=== PATIENT | female | born 1950 | race Caucasian/White ===

== ENCOUNTER 2020-04-26 16:15 | Outpatient (REF) | payer MEDICARE, OTHER, SELFPAY ==
--- NOTE | ~2020-04-26 | MM_ITS ---
EXAMINATION: MM SCREENING DIGITAL BREAST TOMOSYNTHESIS, BILATERAL CLINICAL INFORMATION: Screening. Asymptomatic. The lifetime risk of breast cancer based on the Tyrer-Cuzick Model is 5%. COMPARISON: Mammography: 04/21/2019, 02/24/2018, 08/08/2015 TECHNIQUE: Digital breast tomosynthesis is performed in both the craniocaudal and mediolateral oblique views along with computer-aided detection (CAD). Synthesized 2D images are generated from the tomosynthesis. Additional right MLO and left CC views are provided. FINDINGS: There are scattered areas of fibroglandular density (ACR BI-RADS breast composition Category b). The fibroglandular tissue is predominantly in the anterior breasts and appear similar to prior studies. There is no developing density or interval mass or architectural abnormality. No abnormal calcifications. The axilla and skin contours are unremarkable. MM/MM tomosynthesis screening BI IMPRESSION: No significant changes from prior studies. ASSESSMENT: BI-RADS 1: Negative RECOMMENDATION: Routine annual mammography screening. This patient's information was entered into a reminder system with a target due date for their next mammogram.
== END 2020-04-26 16:16 | disposition home or self-care (01) ==
LOC: HO.MAMMO 16:15
PROVIDERS: PCP Internal Medicine; Visit Provider Internal Medicine
DX: Z12.31 Encounter for screening mammogram for malignant neoplasm of breast (principal)
CPT/HCPCS: 77063; 77067

== ENCOUNTER 2020-08-23 13:48 | Outpatient (REF) | payer MEDICARE, OTHER, SELFPAY ==
--- NOTE | ~2020-08-23 | MM_ITS ---
EXAMINATION: BONE DENSITOMETRY CLINICAL INDICATION: Menopause. COMPARISON: This is the patient's baseline examination. TECHNIQUE: Using a Moment DXA System (software version: 13.1) manufactured by [employer], dual-energy x-ray absorptiometry was performed of the lumbar spine and left forearm radius 33%. Patient with bilateral hip replacements. The images are of good technical quality. Summary results are attached. FINDINGS: AP SPINE L1-L4: BMD 1.088 g/cm2, Z-score -0.3, T-score -0.8, normal. LEFT FOREARM RADIUS 33%: BMD 0.595 g/cm2, Z-score -1.5, T-score -3.2, osteoporosis. IDENTIFIED RISK FACTORS: Early menopause, height loss, osteoporosis, history of fracture (adult), secondary osteoporosis. HISTORY OF FRACTURE: Femur. MEDICATIONS: Calcium, vitamin D. MM/XR DEXA axial skeleton IMPRESSION: 1. DIAGNOSIS: Severe osteoporosis based on the lowest T-score value of -3.2 in the forearm radius 33% and history of a fracture of femur applying World Health Organization criteria. 2. 10-YEAR FRACTURE RISK PREDICTION, FRAX: According to the guidelines, FRAX calculation should only be performed on patients in the osteopenia bone density category. Therefore, FRAX was not performed on this patient. 3. Treatment Recommendations: NOF guidelines recommend consideration for treatment in postmenopausal women and men age 50 and older presenting with the following: -A hip or vertebral (clinical or morphometric) fracture. -T-score less than or equal to -2.5 at the femoral neck or spine after appropriate evaluation to exclude secondary causes. -Low bone mass at the hip or spine and a 10-year fracture probability by FRAX of greater than or equal to 3% for hip fracture or greater than or equal to 20% for major osteoporotic fracture based on the [place] adapted WHO algorithm. 4. Other Recommendations: All treatment decisions require clinical judgment and consideration of individual patient factors, including patient preferences, comorbidities, previous drug use, risk factors not captured in the FRAX model (e.g. frailty, falls, vitamin D deficiency, increased bone turnover, interval significant decline in bone density) and possible under or overestimation of fracture risk by FRAX. Additional medical evaluation for secondary cause of low bone mineral density may be appropriate. FUTURE SCAN RECOMMENDATION: People with diagnosed cases of osteoporosis or at high risk for fracture should have regular bone mineral density tests. For patients eligible for Medicare, routine testing is allowed once every 2 years. The testing frequency can be increased to one year for patients who have rapidly progressing disease, those who are receiving or discontinuing medical therapy to restore bone mass, or have additional risk factors.
== END 2020-08-23 13:49 | disposition home or self-care (01) ==
LOC: HO.MAMMO 13:48
PROVIDERS: PCP Internal Medicine; Visit Provider Internal Medicine
DX: Z78.0 Asymptomatic menopausal state (principal); R29.890 Loss of height
CPT/HCPCS: 77080

== ENCOUNTER 2020-09-16 13:25 | Outpatient (REF) | payer MEDICARE, OTHER, SELFPAY ==
[2020-09-16 14:49] LABS: Alanine Aminotransferase 45 U/L (0-31); Albumin Level 4.1 g/dL (3.5-5.0); Alkaline Phosphatase 78 U/L (39-117); Anion Gap 15 (12-20); Aspartate Amino Transferase 31 U/L (5-31); Bilirubin Total 0.7 mg/dL (0.0-1.0); Blood Urea Nitrogen 18 mg/dL (9-16); Calcium 9.6 mg/dL (8.4-10.2); Carbon Dioxide 30 mmol/L (22-29); Chloride 98 mmol/L (96-108); Cholesterol 148 mg/dL; Estimated Glomerular Filt Rate > 60; Glucose Fasting 102 mg/dL (60-99); HDL Cholesterol 58 mg/dL; LDL Cholesterol Calculated 74 mg/dl; Potassium 4.7 mmol/L (3.3-5.1); Sodium 138 mmol/L (135-145); Total Protein 6.7 g/dL (6.5-8.0); Triglycerides 81 mg/dL
[2020-09-16 15:13] LABS: TSH reflex Free T4 3.73 uIU/mL (0.32-4.0)
== END 2020-09-16 13:26 | disposition home or self-care (01) ==
LOC: HO.LAB 13:25
PROVIDERS: PCP Internal Medicine; Visit Provider Nurse Practitioner Family
DX: Z13.1 Encounter for screening for diabetes mellitus (principal); Z13.220 Encounter for screening for lipoid disorders; I10 Essential (primary) hypertension
CPT/HCPCS: 36415; 80053; 80061; 84443

== ENCOUNTER 2020-10-02 13:26 | Outpatient (REF) | payer MEDICARE, OTHER, SELFPAY ==
[2020-10-02 14:54] LABS: Hematocrit 37.5 % (37-47); Hemoglobin 12.1 g/dl (12.0-16.0); Mean Corpuscular HGB Conc 32.3 g/dl (31.0-35.0); Mean Corpuscular Hemoglobin 32.8 pg (27.0-33.0); Mean Corpuscular Volume 101.6 fL (80-98); Platelet Count 258 X10*3/uL (160-400); Red Blood Count 3.69 X10*6/uL (4.20-5.50); Red Cell Distribution Width 13.5 % (11.0-16.0); White Blood Count 5.3 X10*3/uL (4.8-10.8)
== END 2020-10-02 13:27 | disposition home or self-care (01) ==
LOC: HO.LAB 13:26
PROVIDERS: PCP Internal Medicine; Referring Provider Internal Medicine; Visit Provider Nurse Practitioner Family
DX: Z01.818 Encounter for other preprocedural examination (principal); R06.02 Shortness of breath
CPT/HCPCS: 36415; 85027; 99202

== ENCOUNTER → 2020-11-06 12:38 | Outpatient (BNVA) | payer MEDICARE, OTHER, SELFPAY | PROVIDERS: PCP Internal Medicine; Visit Provider Internal Medicine | DX: Z01.810 Encounter for preprocedural cardiovascular examination (principal); I51.7 Cardiomegaly; I10 Essential (primary) hypertension; R60.0 Localized edema; E66.01 Morbid (severe) obesity due to excess calories | CPT/HCPCS: 93005; 99202 ==

== ENCOUNTER → 2021-01-13 14:45 | Outpatient (REF) | payer MEDICARE, OTHER, SELFPAY ==
--- NOTE | 2021-01-13 14:49 | CA_ITS ---
Transthoracic Echocardiogram Patient (Last, First, Middle): Amber Dozier A Gender: Female Date of : 1950 Age: 70 Procedure Date: 01/13/2021 Procedure Type: Transthoracic Echocardiogram Location: OP Height: 160.02 cm Weight: 122.47 kg BSA: 2.20 m2 Heart Rate: bpm BP: 128 / 80 mmHg Production Maintenance Technician: Referring MD: Harshad Goode MD Symptoms: R60.0 - Localized edema Study Quality: Fair ECG Rhythm: Sinus Conclusions: - The left ventricular systolic function is normal. The calculated ejection fraction is 60% by biplane method. - No obvious valvular pathology seen on this study. Findings Left Ventricle Normal left ventricular cavity size. There is mildly increased left ventricular wall thickness. The left ventricular systolic function is normal. The calculated ejection fraction is 60% by biplane method. There is no evidence of regional wall motion abnormalities. Diastolic function is normal for age. Right Ventricle Normal right ventricular cavity size and systolic function. Atria Both atria are normal in size. Aortic Valve The aortic valve was not well visualized. There is no aortic valve stenosis. There is no aortic valve regurgitation. Mitral Valve The mitral valve appears normal. There is trace mitral valve regurgitation. There is no mitral valve stenosis. Pulmonic Valve The pulmonic valve was not well visualized. Tricuspid Valve Normal tricuspid valve structure. There is trace tricuspid valve regurgitation. The pulmonary artery systolic pressure is normal. Great Vessels The asc aorta is normal in size. Venous The inferior vena cava was not well visualized. Pericardium/Pleural There is no evidence of pericardial effusion. Prior Study Comparison No prior study available for comparison. Recommendations, Care & Conclusions No obvious valvular pathology seen on this study. Measurements 2D Linear Measurements IVSd: 1.16 0.6-0.9/0.6-1.0 cm LVIDd: 4.57 3.9-5.3/4.2-5.9 cm LVIDd Index: 2.08 2.4-3.2/2.2-3.1 cm/m2 LVIDs: 3.15 2.0-3.6 cm LVPWd: 1.19 0.7-1.1 cm Ao Root: 2.90 2.1-3.5 cm LA Diam: 4.60 2.7-3.8/3.0-4.0 cm LAIDs Index: 2.09 1.5-2.3 cm/m2 LV Mass: 245.37 67-162/88-224 g LV Mass Index: 111.53 43-95/49-115 g/m2 LVOT Diam: 2.20 3.0+(-)1.3 cm 2D Systolic Function EF 4C: 56.80 >55% EF 2C: 61.80 >55% EF BiP: 60.30 >55% Mitral Valve MV Pk E: 0.90 MV PK A: 1.08 MV Decel Time: 165.00 E/A: 0.80 E'Lateral: 11.00 E'Medial: 8.16 E/E' Med: 11.10 E/E' Lat: 8.20 PHT: 48.00 MVA PHT: 4.58 Decel Benson: 5.47 Aortic Valve AoV Pk Kenan: 1.89 AoV Mn Kenan: 1.25 AoV VTI: 0.44 AoV Pk Grad: 14.00 Aov Mn Grad: 8.00 DANNY Cont.VTI: 2.47 LVOT LVOT Pk Kenan: 1.19 LVOT Mn Kenan: 0.87 LVOT VTI: 0.28 LVOT Pk Grad: 6.00 LVOT Mn Grad: 3.00 LVOT Diam: 2.20 LVOT Area: 3.80 Diastolic Function MV Pk E: 0.90 MV Pk A: 1.08 E/A: 0.80 E'Medial: 8.16 E/E' Med: 11.10 E' Laterial: 11.00 E/E' Lat: 8.20 Right Ventricle TAPSE (mm): 24.00 Tricuspid Valve TR Pk Kenan: 2.41 TR Pk Grad: 23.00 Great Vessels Aorta Ao Root-2D: 2.90 2.0-3.7 cm Ao Asc: 3.70 2.1-3.4 cm Pulmonary Valve PV Pk Kenan: 1.11 Peak PV Grad: 5.00 Updated in Other Vendor System with Status of Final Harshad Goode MD electronically signed on 01/15/2021 11:14:27 AM with status of Final
== END ==
LOC: HO.CARD 14:45
PROVIDERS: Visit Provider Internal Medicine
DX: R60.0 Localized edema (principal)
CPT/HCPCS: 93306

== ENCOUNTER 2021-07-30 11:15 | Outpatient (REF) | payer MEDICARE, OTHER, SELFPAY ==
[2021-07-30 12:37] LABS: Anion Gap 13 (12-20); Blood Urea Nitrogen 17 mg/dL (9-16); Calcium 9.1 mg/dL (8.4-10.2); Carbon Dioxide 31 mmol/L (22-29); Chloride 99 mmol/L (96-108); Estimated Glomerular Filt Rate > 60; Glucose Fasting 123 mg/dL (60-99); Potassium 4.1 mmol/L (3.3-5.1); Sodium 139 mmol/L (135-145)
== END 2021-07-30 11:16 | disposition home or self-care (01) ==
LOC: HO.LAB 11:15
PROVIDERS: PCP Internal Medicine; Visit Provider Nurse Practitioner Family
DX: Z13.1 Encounter for screening for diabetes mellitus (principal)
CPT/HCPCS: 36415; 80048

== ENCOUNTER 2021-08-06 15:15 | Outpatient (REF) | payer MEDICARE, OTHER, SELFPAY ==
[2021-08-06 16:22] LABS: Estimated Average Glucose 111 mg/dL; Hemoglobin A1c % 5.5 %
[2021-08-06 16:24] LABS: Cholesterol 155 mg/dL; HDL Cholesterol 56 mg/dL; LDL Cholesterol Calculated 81 mg/dl; Triglycerides 90 mg/dL
== END 2021-08-06 15:16 | disposition home or self-care (01) ==
LOC: HO.LAB 15:15
PROVIDERS: PCP Internal Medicine; Visit Provider Nurse Practitioner Family
DX: E11.65 Type 2 diabetes mellitus with hyperglycemia (principal)
CPT/HCPCS: 36415; 80061; 83036

== ENCOUNTER → 2021-08-28 10:06 | Outpatient (BNVA) | payer MEDICARE, OTHER, SELFPAY | PROVIDERS: PCP Internal Medicine; Visit Provider Internal Medicine Endocrinology, Diabetes & Metabolism | DX: M81.0 Age-related osteoporosis without current pathological fracture (principal) | CPT/HCPCS: 99212; Q3014 ==

== ENCOUNTER 2021-10-07 11:59 | Outpatient (REF) | payer MEDICARE, OTHER, SELFPAY ==
[2021-10-07 13:23] LABS: Phosphorus 4.2 mg/dL (2.7-4.5)
[2021-10-07 13:48] LABS: Vitamin D 25-OH Total 35.7 ng/mL (>30)
[2021-10-11 19:26] LABS: Prot Elec - Albumin 3.7 g/dL (3.8-4.8); Prot Elec - Alpha1 0.3 g/dL (0.2-0.3); Prot Elec - Alpha2 0.8 g/dL (0.5-0.9); Prot Elec - Beta 1 0.5 g/dL (0.4-0.6); Prot Elec - Beta 2 0.5 g/dL (0.2-0.5); Prot Elec - Gamma 0.9 g/dL (0.8-1.7); Prot Elec - Total Protein 6.6 g/dL (6.1-8.1)
== END 2021-10-07 12:00 | disposition home or self-care (01) ==
LOC: HO.LAB 11:59
PROVIDERS: PCP Internal Medicine; Visit Provider Internal Medicine Endocrinology, Diabetes & Metabolism
DX: M81.0 Age-related osteoporosis without current pathological fracture (principal)
CPT/HCPCS: 36415; 82306; 84100; 84165; 86335

== ENCOUNTER 2021-12-25 12:41 | Outpatient (REF) | payer MEDICARE, OTHER, SELFPAY ==
[2021-12-25 13:37] LABS: Creatinine, mg/dL 33.83
[2021-12-25 14:47] LABS: Creatinine, 24Hr Urine 0.9 G/Day (1.0-2.0); Total Volume 24 Hour Urine 2750 mL
[2021-12-27 17:46] LABS: Calcium, 24 Hr Urine 220 mg/24 h; Calcium/Creatinine Ratio 229 mg/g creat (30-275); Creatinine 24Hr Urine 0.96 g/24 h (0.50-2.15)
== END 2021-12-25 12:42 | disposition home or self-care (01) ==
LOC: HO.LNP 12:41
PROVIDERS: Visit Provider Internal Medicine Endocrinology, Diabetes & Metabolism
DX: M81.0 Age-related osteoporosis without current pathological fracture (principal)
CPT/HCPCS: 82340; 82570

== ENCOUNTER → 2022-01-20 14:48 | Outpatient (BNVA) | payer MEDICARE, OTHER, SELFPAY | PROVIDERS: PCP Internal Medicine; Visit Provider Internal Medicine Endocrinology, Diabetes & Metabolism | DX: M81.0 Age-related osteoporosis without current pathological fracture (principal) | CPT/HCPCS: 99212 ==

== ENCOUNTER 2022-01-22 08:50 | Outpatient (REF) | payer MEDICARE, OTHER, SELFPAY ==
--- NOTE | ~2022-01-22 | XR_ITS ---
EXAMINATION: XR CHEST CLINICAL INFORMATION: Unspecified abdominal pain. COMPARISON: Chest CT scan dated 11/18/2010, abdominal radiograph dated 09/17/2008. TECHNIQUE: 2 views of the chest were obtained. FINDINGS: No significant abnormality is noted involving the heart, lungs, mediastinum, bony thorax or soft tissues. XR/XR chest 2V IMPRESSION: No acute cardiopulmonary process.
--- NOTE | ~2022-01-22 | US_ITS ---
EXAMINATION: US ABDOMEN COMPLETE CLINICAL INFORMATION: Unspecified abdominal pain. COMPARISON: Ultrasound abdomen 10/18/2008. TECHNIQUE: Real-time imaging of the abdominal viscera. Technically difficult study secondary to body habitus. FINDINGS: Body habitus limits the evaluation. PANCREAS: Normal. ABDOMINAL AORTA: Not seen due to bowel gas. INFERIOR VENA CAVA: Visualized portions are normal. LIVER: The liver is normal in size. The liver contour is normal. There is diffuse increased liver parenchymal echogenicity, consistent with hepatic steatosis. No focal hepatic lesion. There is no intrahepatic biliary duct dilatation seen. GALLBLADDER: The gallbladder is physiologically distended. A few dependent gallstones are present. No evidence of gallbladder wall thickening or pericholecystic fluid. COMMON BILE DUCT: Normal in caliber measuring 0.5 cm in diameter. RIGHT KIDNEY: Normal. No hydronephrosis. No renal calculi or focal parenchymal lesions. The kidney measures 11.6 cm in maximum dimension. LEFT KIDNEY: Atrophic kidney. No hydronephrosis. No renal calculi or focal parenchymal lesions. The kidney measures 7.2 cm in maximum dimension. SPLEEN: Normal. The spleen measures 10.3 cm in maximum dimension. FREE FLUID: None. US/US abdomen complete IMPRESSION: 1. Hepatic steatosis. 2. Cholelithiasis without evidence of acute cholecystitis. 3. Atrophic left kidney.
[2022-01-22 11:21] LABS: MANUAL DIFF FLAG NO
[2022-01-22 11:47] LABS: Basophils Percent Auto 0.9 % (0-2); Eosinophils Absolute Auto 0.1 X10*3/uL (0.0-0.4); Hematocrit 42.2 % (37.0-47.0); Hemoglobin 13.2 g/dl (12.0-16.0); Imm Gran Abs Auto 0.01 X10*3/uL (0.00-0.03); Imm Gran Pct Auto 0.2 % (0.0-0.4); Lymphocytes Percent Auto 21.5 % (20-40); Mean Corpuscular HGB Conc 31.3 g/dl (31.0-35.0); Mean Corpuscular Hemoglobin 32.2 pg (27.0-33.0); Mean Corpuscular Volume 102.9 fL (80.0-98.0); Mean Platelet Volume 10.9 fL (9.4-12.3); Monocytes Absolute Auto 0.5 X10*3/uL (0.1-1.2); Monocytes Percent Auto 10.7 % (2-11); Neutrophils Percent Auto 63.7 % (45-73); Platelet Count 265 X10*3/uL (160-400); Red Cell Distribution Width 13.8 % (11.0-16.0); White Blood Count 4.7 X10*3/uL (4.8-10.8)
[2022-01-22 12:15] LABS: Alanine Aminotransferase 52 U/L (0-31); Albumin Level 4.3 g/dL (3.5-5.0); Alkaline Phosphatase 91 U/L (39-117); Anion Gap 13 (12-20); Aspartate Amino Transferase 40 U/L (5-31); Bilirubin Total 0.7 mg/dL (0.0-1.0); Blood Urea Nitrogen 18 mg/dL (9-16); Calcium 9.5 mg/dL (8.4-10.2); Carbon Dioxide 36 mmol/L (22-29); Chloride 97 mmol/L (96-108); Cholesterol 176 mg/dL; Estimated Glomerular Filt Rate > 60; Glucose Fasting 124 mg/dL (60-99); HDL Cholesterol 77 mg/dL; LDL Cholesterol Calculated 80 mg/dl; Potassium 4.1 mmol/L (3.3-5.1); Sodium 142 mmol/L (135-145); Thyroid Stimulating Hormone 9.69 uIU/mL (0.32-4.0); Total Protein 7.1 g/dL (6.5-8.0); Triglycerides 97 mg/dL
== END 2022-01-22 08:51 | disposition home or self-care (01) ==
LOC: HO.HMGCX 08:50
PROVIDERS: PCP Internal Medicine; Visit Provider Internal Medicine
DX: Z13.0 Encounter for screening for diseases of the blood and blood-forming organs and certain disorders involving the immune mechanism (principal); R10.9 Unspecified abdominal pain; I10 Essential (primary) hypertension; E78.5 Hyperlipidemia, unspecified; E03.9 Hypothyroidism, unspecified
CPT/HCPCS: 36415; 71046; 76700; 80053; 80061; 84443; 85025

== ENCOUNTER → 2022-03-10 11:04 | Outpatient (BNVA) | payer MEDICARE, OTHER, SELFPAY | PROVIDERS: PCP Internal Medicine; Visit Provider Internal Medicine Endocrinology, Diabetes & Metabolism | DX: M81.0 Age-related osteoporosis without current pathological fracture (principal) | CPT/HCPCS: 96372; J3111 ==

== ENCOUNTER → 2022-04-16 10:55 | Outpatient (BNVA) | payer MEDICARE, OTHER, SELFPAY | PROVIDERS: PCP Internal Medicine; Visit Provider Internal Medicine Endocrinology, Diabetes & Metabolism | DX: M81.0 Age-related osteoporosis without current pathological fracture (principal) | CPT/HCPCS: 96372; J3111 ==

== ENCOUNTER → 2022-05-19 10:53 | Outpatient (BNVA) | payer MEDICARE, OTHER, SELFPAY | PROVIDERS: PCP Internal Medicine; Visit Provider Internal Medicine Endocrinology, Diabetes & Metabolism | DX: M81.0 Age-related osteoporosis without current pathological fracture (principal) | CPT/HCPCS: 96372; J3111 ==

== ENCOUNTER 2022-06-05 11:00 | Outpatient (REF) | payer MEDICARE, OTHER, SELFPAY ==
[2022-06-05 12:56] LABS: Cholesterol 175 mg/dL; HDL Cholesterol 73 mg/dL; LDL Cholesterol Calculated 82 mg/dl; Triglycerides 104 mg/dL
[2022-06-05 13:15] LABS: Thyroid Stimulating Hormone 3.31 uIU/mL (0.32-4.0)
== END 2022-06-05 11:01 | disposition home or self-care (01) ==
LOC: HO.LAB 11:00
PROVIDERS: Absent Provider Internal Medicine Endocrinology, Diabetes & Metabolism; PCP Internal Medicine; Visit Provider Internal Medicine
DX: E03.9 Hypothyroidism, unspecified (principal); E78.5 Hyperlipidemia, unspecified; M81.0 Age-related osteoporosis without current pathological fracture
CPT/HCPCS: 36415; 80061; 84443; 86335

== ENCOUNTER → 2022-06-11 10:30 | Outpatient (BNVA) | payer MEDICARE, OTHER, SELFPAY | PROVIDERS: PCP Internal Medicine; Visit Provider Internal Medicine Endocrinology, Diabetes & Metabolism | DX: M81.0 Age-related osteoporosis without current pathological fracture (principal) | CPT/HCPCS: 99212 ==

== ENCOUNTER 2022-06-30 11:41 | Outpatient (REF) | payer MEDICARE, OTHER, SELFPAY ==
--- NOTE | ~2022-06-30 | XR_ITS ---
EXAMINATION: XR KNEE, RIGHT CLINICAL INFORMATION: Right knee pain COMPARISON: None available. TECHNIQUE: Two views of the right knee. FINDINGS: No fracture or subluxation. Moderate medial compartment joint space narrowing with mild narrowing at the lateral patellofemoral compartments. Tricompartmental small to moderate marginal osteophytes. No joint effusion. Enthesophyte formation of the patella. Superficial varicosities noted. XR/XR knee RT 2V IMPRESSION: Moderate tricompartmental degenerative changes.
== END 2022-06-30 11:42 | disposition home or self-care (01) ==
LOC: HO.XRAY 11:41
PROVIDERS: Absent Provider Internal Medicine; PCP Internal Medicine; Visit Provider Internal Medicine Endocrinology, Diabetes & Metabolism
DX: M25.551 Pain in right hip (principal); M81.0 Age-related osteoporosis without current pathological fracture
CPT/HCPCS: 73560; 96372; J3111

== ENCOUNTER 2022-07-19 09:28 | Emergency (ER) | payer MEDICARE, OTHER, SELFPAY ==
--- NOTE | ~2022-07-19 | XR_ITS ---
EXAMINATION: XR PELVIS XR RIGHT FEMUR XR RIGHT TIBIA-FIBULA XR RIGHT ANKLE XR RIGHT FOOT CLINICAL INFORMATION: Right hip pain after fall. Pain of right-sided extremity after fall. COMPARISON: Pelvis radiograph and CT images of the left hip from 10/22/2016 TECHNIQUE: Pelvis, AP view Right femur, 2 views Right tibia-fibula, 2 views Right ankle, 2 views Right foot, 3 views FINDINGS: Pelvis: The osseous pelvic ring is intact with normal alignment at pubic symphysis, hips and sacroiliac joints. Bilateral total hip arthroplasty hardware in place. No osteolysis or fracture around the hardware. Right femur: The prosthetic femoral head is well centered within the acetabular cup which is stabilized by superior screws. The noncemented femoral stem is well centered in the medullary cavity of the proximal femoral diaphysis. No abnormal lucency or fracture around the hardware. 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 There is narrowing of tibiofemoral joint spaces. Proximal tibia and fibula are intact. Incidentally noted are scattered calcifications in the subcutaneous tissues. Right ankle: Acute fracture of the medial malleolus is not significantly displaced. Oblique fracture of distal fibular metaphysis (Forbes B injury) with 0.3 cm posterolateral displacement of distal fragment. The talus is well-positioned within the mortise. The tibiotalar joint space and syndesmotic space are maintained. Soft tissues are swollen in the lower leg and ankle. Right foot: Small plantar calcaneal enthesophyte is present. Alignment is normal throughout the foot. Joint spaces are preserved. Tarsal bones, metatarsals and phalanges are intact. XR/XR tibia fibula RT 2V IMPRESSION: * Acute osseous injury is present at the ankle. The medial malleolar fracture is not significantly displaced. The distal fibula fracture (Forbes B injury) is displaced by 0.3 cm. Soft tissues are swollen in the lower leg and ankle. * Otherwise, no acute fractures are identified within the pelvis, femur, leg or foot.. * No evidence of loosening of total hip arthroplasty hardware.
--- NOTE | ~2022-07-19 | XR_ITS ---
EXAMINATION: XR PELVIS XR RIGHT FEMUR XR RIGHT TIBIA-FIBULA XR RIGHT ANKLE XR RIGHT FOOT CLINICAL INFORMATION: Right hip pain after fall. Pain of right-sided extremity after fall. COMPARISON: Pelvis radiograph and CT images of the left hip from 10/22/2016 TECHNIQUE: Pelvis, AP view Right femur, 2 views Right tibia-fibula, 2 views Right ankle, 2 views Right foot, 3 views FINDINGS: Pelvis: The osseous pelvic ring is intact with normal alignment at pubic symphysis, hips and sacroiliac joints. Bilateral total hip arthroplasty hardware in place. No osteolysis or fracture around the hardware. Right femur: The prosthetic femoral head is well centered within the acetabular cup which is stabilized by superior screws. The noncemented femoral stem is well centered in the medullary cavity of the proximal femoral diaphysis. No abnormal lucency or fracture around the hardware. 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 There is narrowing of tibiofemoral joint spaces. Proximal tibia and fibula are intact. Incidentally noted are scattered calcifications in the subcutaneous tissues. Right ankle: Acute fracture of the medial malleolus is not significantly displaced. Oblique fracture of distal fibular metaphysis (Forbes B injury) with 0.3 cm posterolateral displacement of distal fragment. The talus is well-positioned within the mortise. The tibiotalar joint space and syndesmotic space are maintained. Soft tissues are swollen in the lower leg and ankle. Right foot: Small plantar calcaneal enthesophyte is present. Alignment is normal throughout the foot. Joint spaces are preserved. Tarsal bones, metatarsals and phalanges are intact. XR/XR ankle RT min 3V IMPRESSION: * Acute osseous injury is present at the ankle. The medial malleolar fracture is not significantly displaced. The distal fibula fracture (Forbes B injury) is displaced by 0.3 cm. Soft tissues are swollen in the lower leg and ankle. * Otherwise, no acute fractures are identified within the pelvis, femur, leg or foot.. * No evidence of loosening of total hip arthroplasty hardware.
[2022-07-19 09:29] VITALS: BP 148/90; BP 161/74; PULSE 84; RESP 16; TEMP 36.9; O2SAT 92; O2SAT 93; BMI 51.1
--- NOTE | 2022-07-19 09:36 | ED_ITS ---
HPI - General Adult General Chief complaint: Fall Stated complaint: RLE PAIN S/P FALL LAST NIGHT/UNABLE TO GET UP PER Time Seen by Provider: 07/19/22 09:31 Source: patient and RN notes reviewed Mode of arrival: ambulatory Limitations: no limitations History of Present Illness HPI narrative: This is a [id number], with a past medical history of hypertension, left hip replacement, right hip replacement, CKD, osteoporosis, and LVH, who presents to the emergency department via EMS with complaints of entire right leg pain status post mechanical fall which occurred yesterday. Patient reports that she was attempting to stand up from her chair when suddenly her knees ?gave out and she fell backwards landing on her buttocks. Patient states that she was unable to get herself back up and ultimately spent the entire night on the ground. She states that her family was present during this fall and decided not to call EMS until this morning. She reports that she has been unable to move her entire right leg. Denies any numbness or tingling in her leg. She denies taking any medications at home to treat her pain. No chest pain, shortness of breath, headaches, abdominal pain, back pain, nausea, vomiting or diarrhea. No other complaints or concerns at this time. MD complaint: Right leg pain s/p mechanical fall Onset (ago): day(s) Location: lower extremity Severity: moderate Quality: aching Pain Consistency: constant Relieving factors: immobilization Exacerbating factors: movement Associated symptoms: denies other symptoms Treatments prior to arrival: none Related Data Home Medications Medication Instructions Recorded Confirmed potassium citrate 10 mEq (1,080 20 meq PO BID 01/31/20 07/19/22 mg) tablet,extended release Saccharomyces boulardii 250 mg 250 mg PO BID 11/06/20 07/19/22 capsule (Daily Probiotic (S. boulardii)) cholecalciferol (vitamin D3) 25 25 mcg PO DAILY 11/06/20 07/19/22 mcg (1,000 unit) capsule cranberry 400 mg capsule 400 mg PO DAILY 11/06/20 07/19/22 ferrous sulfate 325 mg (65 mg 325 mg PO DAILY 11/06/20 07/19/22 iron) tablet simethicone 62.5 mg oral strips 1 strip PO BEDTIME 11/06/20 07/19/22 (Gas-X) fexofenadine 180 mg tablet 180 mg PO DAILY 07/19/22 07/19/22 levothyroxine 125 mcg tablet 125 mcg PO DAILY@0600 07/19/22 07/19/22 multivitamin 1 tab PO DAILY 07/19/22 07/19/22 pantoprazole 40 mg tablet,delayed 40 mg PO DAILY@0630 07/19/22 07/19/22 release romosozumab-aqqg 210 mg/2.34 210 mg subcut QMONTH 07/19/22 07/19/22 mL(105 mg/1.17 mL x2)subcutaneous syringe (Evenity) simvastatin 80 mg tablet 80 mg PO BEDTIME 07/19/22 07/19/22 Previous Rx's Medication Instructions Recorded furosemide 80 mg tablet 80 mg PO DAILY #90 tabs 04/17/21 irbesartan 150 mg tablet 150 mg PO DAILY #90 tabs 05/04/22 oxybutynin chloride 5 mg 5 mg PO DAILY #90 tabs 05/04/22 tablet,extended release 24 hr zolpidem 5 mg tablet 5 mg PO BEDTIME #30 tabs 05/04/22 celecoxib 100 mg capsule 100 mg PO BID #180 caps 07/16/22 Allergies Allergy/AdvReac Type Severity Reaction Status Date / Time bee pollen [Bee Stings] Allergy Severe ANAPHYLAXIS Verified 06/23/22 11:49 KAVEH Inhibitors Allergy Unknown cough Verified 06/23/22 11:49 adhesive [ADHESIVE] Allergy Unknown SORES Verified 06/23/22 11:49 Sulfa (Sulfonamide Allergy Unknown HIVES/SWELLING, Verified 06/23/22 11:49 Antibiotics) rash Review of Systems Review of Systems: Constitutional: No Weight loss, No Fever, No Chills, No Night Sweats, No Fatigue, No Malaise ENT/Mouth: No Hearing loss, No Ear Pain, No Nasal Congestion, No Sinus Pain, No Hoarseness, No sore throat, No Rhinorrhea, No Swallowing Difficulty Eyes: No Eye Pain, No Swelling, No Redness, No Foreign Body, No Discharge, No Vision Changes Cardiovascular: No Chest Pain, No SOB, No Dyspnea on Exertion, No Orthopnea, No Edema, No Palpitations Respiratory: No Cough, No Sputum, No Wheezing, No Smoke Exposure, No Dyspnea Gastrointestinal: No Nausea, No Vomiting, No Diarrhea, No Constipation, No Abdominal pain, No Hematochezia, No Melena Genitourinary: No irregular bleeding, No Dysuria, No Urinary Frequency, No Hematuria, No Urinary Incontinence/retention, No Urgency, No Flank Pain, No Urinary Flow Changes, No Hesitancy Musculoskeletal: No joint pain, No Myalgias, No Joint Swelling Skin: No Skin Lesions, No rash Neuro: No Weakness, No Numbness, No Paresthesias, No Loss of Consciousness, No Dizziness, No Headache Psych: No Anxiety/Panic, No Depression, No SI/HI/AH/VH, No Social Issues, Heme/Lymph: No Bruising, No Bleeding,No Lymphadenopathy Endocrine: No Polyuria, No Polydipsia, No Temperature Intolerance Yes all other systems are reviewed and are negative Constitutional: Constitutional: Reports as per [facility] Past Medical History Medical History Hypertension Morbid obesity Post-menopausal Screening for colon cancer Screening for diabetes mellitus Screening for hyperlipidemia Surgical History H/O basal cell carcinoma excision H/O gastric bypass History of section History of colonoscopy History of left hip replacement History of right hip replacement History of tubal ligation Family History Family History Father CHF (congestive heart failure) Metastatic cancer to lung Mother Past heart attack Other Substance abuse Social History Social History Housing: House Alcohol intake: current Alcohol intake frequency: a few times a week Patient Tobacco Use Status: Former Tobacco user Tobacco use type: Cigarette Years Smoked: 22 Smoked in Last 30 Days: No e-Cigarette/Vaping Use: Never Used Second Hand Smoke Exposure: No Use of substances other than those prescribed or required for medical reasons: No Advance Directives: No Advance Directives Information Provided: Yes service: No Current occupational status: retired Cognitive needs: Yes (cane) Hearing needs: No Vision needs: Yes (glasses) Physical Exam ED Vital Signs: Vital Signs - 24 hr 07/19/22 14:00 07/19/22 19:30 07/19/22 22:29 Temperature 98.8 F 98.1 F Pulse Rate 86 86 Respiratory Rate 18 18 18 Blood Pressure 195/78 H 209/80 H 194/83 H Pulse Oximetry 92 92 90 L Oxygen Delivery Method Room Air Room Air Oxygen Flow Rate 07/20/22 01:05 07/20/22 01:23 07/20/22 04:18 Temperature 98.1 F Pulse Rate 82 86 85 Respiratory Rate 20 20 20 Blood Pressure 219/80 H 206/84 H 216/91 H Pulse Oximetry 93 93 97 Oxygen Delivery Method Room Air Room Air Nasal Cannula Oxygen Flow Rate 4 07/20/22 06:21 07/20/22 09:21 07/20/22 10:52 Temperature Pulse Rate 83 84 Respiratory Rate 20 18 Blood Pressure 191/87 H 200/75 H Pulse Oximetry 97 96 92 Oxygen Delivery Method Nasal Cannula Nasal Cannula Room Air Oxygen Flow Rate 3 3 BMI result Body Mass Index 51.1 Const General: cooperative, comfortable and no acute distress Orientation/consciousness: patient oriented x3 Limitations: no limitations HENMT Head: Yes normal to inspection, Yes normocephalic, Yes atraumatic, No Olguin's sign and No raccoon eyes Ears: hearing grossly normal bilaterally and TM's normal bilaterally General nose exam: Normal external nose present Face and sinus: Yes normal facial exam Mouth: Normal oral and palatal mucosa present, oropharynx normal and moist mucous membranes Throat: Yes posterior oropharynx normal Eyes General: appearance normal, both eyes and all related structures Eyelids: Yes eyelids normal Conjunctivae: conjunctivae normal Sclerae: sclerae normal Pupils: Equal, round and reactive pupils present EOM: EOMs intact bilaterally Neck Neck: Yes normal visual inspection, Yes full ROM and Yes no lymphadenopathy Lymphatic: no lymphadenopathy noted Chest Chest palpation & inspection: normal inspection of the chest Resp Effort & Inspection: normal respiratory effort and able to speak in complete sentences Auscultation: clear to auscultation bilaterally, no crackles, no rales, no rhonchi and no wheezes Cardio Rate: regular rate Rhythm: regular rhythm Heart sounds: S1 normal heart sound present and S2 normal heart sound present GI Inspection: Yes normal to inspection Palpation (GI): Soft to palpation, nontender and no guarding Back/Spine/Pelvis Cervical Spine: cervical ROM normal, No pain with cervical ROM, No Cervical spine tenderness and No step off deformity Thoracic/Lumbar Spine: thoracic and lumbar spine normal to inspection Skin General skin exam: no rashes or lesions noted Trauma: no lacerations or abrasions Wounds: no wounds Neuro General: patient oriented x3 and moves all extremities Cranial nerves: Yes Equal, round and reactive pupils present Extrem Other: Equisite tenderness over the right lateral hip, entire of femur, knee, ankle and foot. Unable to assess ROM as pt reports unable to lift leg or bend right knee. Distal sensation intact. DP pulses 2+. Right leg is well perfused and warm. No overlying skin changes. On her distal duarte, pt has a chronic healed ulceration from reported biopsy, no surrounding erythema. TTP over right medial mallelous with tenderness to palpation along the entirety of the midfoot, no fifth metatarsal tenderness to palpation. Able to move toes without difficulty. General: Yes normal to inspection Right upper extremity: normal to inspection Left upper extremity: normal to inspection Right lower extremity: normal to inspection Left lower extremity: normal to inspection Course Course Course Narrative: 07/20/22--physician observation continued. Labs reviewed, patient with noted UTI > will initiate Ceftin 250 b.i.d. imaging reviewed, patient currently in splint. Patient notably hypertensive today did receive home medications which include losartan around 10:00, also complaining of continued pain after oxycodone 5 mg. Will give p.o. morphine and re-evaluated. Suspect hypertension secondary to pain. Physical therapy will not evaluate patient until BP under control. Will continue to monitor. Pending PT and case management Reevaluation(s) Reevaluation #1: X-ray revealing Acute osseous injury is present at the ankle. The medial malleolar fracture is not significantly displaced. The distal fibula fracture (Forbes B injury) is displaced by 0.3 cm. Soft tissues are swollen in the lower leg and ankle. Discussed case with orthopedic PA, Marilee Dodge, who recommend nonweightbearing, splint, and outpatient follow-up. Stir up and posterior splint applied. Patient medicated with oxycodone 5mg PO, and will be evaluated by physical therapy. No questions or concerns at this time. Time: 13:00 Reevaluation #2: Splint applied to right lower extremity, patient able to wiggle toes, good perfusion, distal sensation circulation intact. Entirety of leg is warm and well perfused. Physical therapy unable to assess patient given Wednesday patient willing to stay overnight to be seen by Physical therapy and Case Management tomorrow. Time: 14:35 Medications Administered Generic Name Dose Route Start Last Admin Trade Name Freq PRN Reason Stop Dose Admin Acetaminophen 650 mg 07/19/22 17:22 07/20/22 10:40 Acetaminophen 325 Mg Tablet PO 650 mg Q6H PRN Administration Pain, Mild (Pain Scale 1-3) Atorvastatin Calcium 40 mg 07/19/22 21:00 07/19/22 20:06 Atorvastatin Calcium 40 Mg Tablet PO 40 mg BEDTIME LOIS Administration Celecoxib 100 mg 07/19/22 21:00 07/19/22 20:10 Celecoxib 100 Mg Capsule PO 100 mg BID LOIS Administration Ferrous Sulfate 324 mg 07/20/22 09:00 07/20/22 10:41 Ferrous Sulfate 324 Mg Tablet. PO 324 mg DAILY LOIS Administration Furosemide 80 mg 07/19/22 19:45 07/20/22 10:40 Furosemide 40 Mg Tablet PO 80 mg DAILY LOIS Administration Protocol Levothyroxine Sodium 125 mcg 07/20/22 06:00 07/20/22 06:23 Levothyroxine Sodium 125 Mcg Tablet PO 125 mcg DAILY@0600 LOIS Administration Loratadine 10 mg 07/20/22 09:00 07/20/22 10:42 Loratadine 10 Mg Tablet PO 10 mg DAILY LOIS Administration Multivitamins/Vitamin C 1 tab 07/19/22 19:45 07/20/22 10:41 Multivitamin Tablet PO 1 tab DAILY LOIS Administration Omeprazole 20 mg 07/20/22 06:30 07/20/22 06:23 Omeprazole 20 Mg Capsule. PO 20 mg DAILY@0630 LOIS Administration Oxybutynin Chloride 5 mg 07/19/22 19:45 07/20/22 10:41 Oxybutynin Chloride Er 5 Mg Tab.Er.24 PO 5 mg DAILY LOIS Administration Oxycodone HCl 5 mg 07/19/22 17:22 07/20/22 10:42 Oxycodone Hcl Immed Release 5 Mg Tablet PO 5 mg Q6H PRN Administration Pain, Severe (Pain Scale 7-10) Potassium Chloride 20 meq 07/19/22 21:00 07/20/22 10:41 Potassium Chloride Er 20 Meq Tab.Er.Prt PO 20 meq BID LOIS Administration Simethicone 80 mg 07/19/22 21:00 07/19/22 20:06 Simethicone 80 Mg Tab.Chew PO 80 mg BEDTIME LOIS Administration Valsartan 80 mg 07/20/22 09:00 07/20/22 10:41 Valsartan 80 Mg Tablet PO 80 mg DAILY LOIS Administration Vitamin D 25 mcg 07/19/22 19:45 07/20/22 10:42 Cholecalciferol (Vitamin D3) 25 Mcg Tablet PO 25 mcg DAILY LOIS Administration Zolpidem Tartrate 5 mg 07/19/22 21:00 07/19/22 21:00 Zolpidem Tartrate 5 Mg Tablet PO 5 mg BEDTIME LOIS Administration Discontinued Medications Generic Name Dose Route Start Last Admin Trade Name Krzysztof PRN Reason Stop Dose Admin Acetaminophen 975 mg 07/19/22 09:55 07/19/22 10:26 Acetaminophen 325 Mg Tablet PO 07/19/22 09:56 975 mg ONCE ONE Administration Hydralazine HCl 25 mg 07/19/22 19:57 07/19/22 20:06 Hydralazine Hcl 25 Mg Tablet PO 07/19/22 19:58 25 mg ONCE ONE Administration Protocol Oxycodone HCl 5 mg 07/19/22 12:13 07/19/22 12:23 Oxycodone Hcl Immed Release 5 Mg Tablet PO 07/19/22 12:14 5 mg ONCE ONE Administration Medical Decision Making Medical Decision Making [facility] Narrative: [id number], with a past medical history of hypertension, left hip replacement, right hip replacement, CKD, osteoporosis, and LVH, who presents to the emergency department via EMS with complaints of entire right leg pain status post mechanical fall which occurred yesterday. Patient spent the entirety of the night on the ground. Patient mildly hypertensive at 161/74, oxygen saturation 92 on room air, patient is afebrile. Pt has tenderness to palpation along the entirety of the right leg, precisely over the right lateral hip, right medial femur, knee, medial ankle and midfoot, and along the tib/fibula. Plan: Right hip, femur, tib/fib, ankle, and foot x-rays ordered. Tylenol 1g PO ordered. Differential Diagnosis Differential Diagnoses: The differential diagnosis associated with the presentation includes Right hip dislocation, right femoral fracture, ankle fracture, dislocation, contusion, rhabdomylysis Admission/Observation Consideration of admission/observation: Escalation of care including admission/observation considered Lab Data [facility] Lab Attestation statement: I reviewed the patient's lab results. 07/19/22 10:44 06/04/23 10:44 Labs: Lab Results 07/19/22 07/19/22 07/19/22 Range/Units 10:44 10:44 10:44 WBC 6.8 (4.8-10.8) X10*3/uL RBC 3.80 L (4.20-5.50) X10*6/uL Hgb 12.3 (12.0-16.0) g/dl Hct 37.7 (37.0-47.0) % MCV 99.2 H (80.0-98.0) fL MCH 32.4 (27.0-33.0) pg MCHC 32.6 (31.0-35.0) g/dl RDW 13.6 (11.0-16.0) % Plt Count 208 (160-400) X10*3/uL MPV 9.5 (9.4-12.3) fL Immature Gran % (Auto) 0.3 (0.0-0.4) % Neut % (Auto) 80.2 H (45-73) % Lymph % (Auto) 10.5 L (20-40) % [place] % (Auto) 7.5 (2-11) % Eos % (Auto) 0.9 (0-4) % Baso % (Auto) 0.6 (0-2) % Lymph # (Auto) 0.7 L (1.2-4.9) X10*3/uL [place] # (Auto) 0.5 (0.1-1.2) X10*3/uL Eos # (Auto) 0.1 (0.0-0.4) X10*3/uL Baso # (Auto) 0.0 (0.0-0.2) X10*3/uL Abs Immat Gran (auto) 0.02 (0.00-0.03) X10*3/uL Absolute Neuts (auto) 5.5 (2.0-8.3) x10*3/uL Absolute Nucleated RBC 0.000 (0.0-0.012) X10*3/uL Nucleated RBC % (auto) 0.0 (0.0-0.2) /100WBC PT 11.6 (10.0-13.1) SEC INR 1.0 (0.9-1.1) APTT 52.4 H (26.0-36.4) SEC Sodium 142 (135-145) mmol/L Potassium 4.3 (3.3-5.1) mmol/L Chloride 103 (96-108) mmol/L Carbon Dioxide 26 (22-29) mmol/L Anion Gap 17 (12-20) BUN 16 (9-16) mg/dL Creatinine 0.83 (0.5-1.4) mg/dL Estim Creat Clear Calc 86.4 Estimated GFR > 60 Random Glucose 112 (60-115) mg/dL Calcium 8.8 D (8.4-10.2) mg/dL Total Creatine Kinase 115 (26-140) U/L Urine Color Urine Appearance Urine pH (5.0-9.0) Ur Specific [place] (1.005-1.025) Urine Protein (Neg-Trace) mg/dL Urine Glucose (UA) (Negative) mg/dL Urine Ketones (Negative) mg/dL Urine Blood (Negative) Urine Nitrite (Negative) Ur Leukocyte Esterase (Negative) Urine RBC (0-2) /HPF Urine WBC (0-5) /HPF Ur Squamous Epith Cells (0-2) /HPF Urine Bacteria (None Seen) Hyaline Casts (0-2) /LPF COVID-19 (AISLINN) (Negative) COVID-19 Clin Com 07/19/22 07/20/22 Range/Units 14:49 08:56 WBC (4.8-10.8) X10*3/uL RBC (4.20-5.50) X10*6/uL Hgb (12.0-16.0) g/dl Hct (37.0-47.0) % MCV (80.0-98.0) fL MCH (27.0-33.0) pg MCHC (31.0-35.0) g/dl RDW (11.0-16.0) % Plt Count (160-400) X10*3/uL MPV (9.4-12.3) fL Immature Gran % (Auto) (0.0-0.4) % Neut % (Auto) (45-73) % Lymph % (Auto) (20-40) % [place] % (Auto) (2-11) % Eos % (Auto) (0-4) % Baso % (Auto) (0-2) % Lymph # (Auto) (1.2-4.9) X10*3/uL [place] # (Auto) (0.1-1.2) X10*3/uL Eos # (Auto) (0.0-0.4) X10*3/uL Baso # (Auto) (0.0-0.2) X10*3/uL Abs Immat Gran (auto) (0.00-0.03) X10*3/uL Absolute Neuts (auto) (2.0-8.3) x10*3/uL Absolute Nucleated RBC (0.0-0.012) X10*3/uL Nucleated RBC % (auto) (0.0-0.2) /100WBC PT (10.0-13.1) SEC INR (0.9-1.1) APTT (26.0-36.4) SEC Sodium (135-145) mmol/L Potassium (3.3-5.1) mmol/L Chloride (96-108) mmol/L Carbon Dioxide (22-29) mmol/L Anion Gap (12-20) BUN (9-16) mg/dL Creatinine (0.5-1.4) mg/dL Estim Creat Clear Calc Estimated GFR Random Glucose (60-115) mg/dL Calcium (8.4-10.2) mg/dL Total Creatine Kinase (26-140) U/L Urine Color Yellow Urine Appearance Clear Urine pH 5.5 (5.0-9.0) Ur Specific [place] 1.020 (1.005-1.025) Urine Protein Negative (Neg-Trace) mg/dL Urine Glucose (UA) Negative (Negative) mg/dL Urine Ketones Trace (Negative) mg/dL Urine Blood Negative (Negative) Urine Nitrite Positive H (Negative) Ur Leukocyte Esterase Moderate (2+) H (Negative) Urine RBC 0-2 (0-2) /HPF Urine WBC >50 H (0-5) /HPF Ur Squamous Epith Cells 3-5 (0-2) /HPF Urine Bacteria 4+ (None Seen) Hyaline Casts 0-2 (0-2) /LPF COVID-19 (AISLINN) Negative (Negative) COVID-19 Clin Com See Note Radiology Impression Discussion of test interpretation with radiology: I have reviewed the radiologist's reading. External Record Review External record reviewed: Inpatient record, Office record, Outpatient record, Prior outpatient labs, Prior outpatient radiology, Primary care record and Outside ED record Discharge Plan Discharge Clinical Impression: Medial malleolar fracture, Fracture of distal end of fibula Patient Disposition: Still a Patient Prescriptions: No Action furosemide 80 mg tablet 80 mg PO DAILY Qty: 90 8RF irbesartan 150 mg tablet 150 mg PO DAILY Qty: 90 8RF oxybutynin chloride 5 mg tablet extended release 24hr 5 mg PO DAILY Qty: 90 8RF zolpidem 5 mg tablet 5 mg PO BEDTIME Qty: 30 5RF celecoxib 100 mg capsule 100 mg PO BID Qty: 180 3RF simvastatin 80 mg tablet 80 mg PO BEDTIME pantoprazole 40 mg tablet,delayed release (DR/EC) 40 mg PO DAILY@0630 levothyroxine 125 mcg tablet 125 mcg PO DAILY@0600 Evenity 210mg/2.34mL ( 105mg/1.17mLx2) syringe 210 mg subcut QMONTH Rx Instructions: LAST DOSE: 06/30/22 multivitamin Tablet 1 tab PO DAILY fexofenadine [Ariana] 180 mg Tablet 180 mg PO DAILY potassium citrate 10 mEq (1,080 mg) tablet extended release 20 meq PO BID Gas-X 62.5 mg strip 1 strip PO BEDTIME cranberry 400 mg capsule 400 mg PO DAILY Rx Instructions: administer with a meal cholecalciferol (vitamin D3) 25 mcg (1,000 unit) capsule 25 mcg PO DAILY Saccharomyces boulardii [Daily Probiotic (S. boulardii)] 250 mg capsule 250 mg PO BID ferrous sulfate 325 mg (65 mg iron) tablet 325 mg PO DAILY
[2022-07-19] MEDS: Acetaminophen 325 MG TABLET 975 MG PO (10:26)
--- NOTE | 2022-07-19 10:36 | PC.NURSE ---
pt AOx4, reports falling late last night night and was unable to get themselves up. Rather than calling EMS immediately, pt family got her a pillow and blanket and she spent the night on the floor with minimal sleep. Pt reporting 9/10 right leg/hip/ankle pain which is tender to light palpation and movement. pt has returned from Xray, medicated with tylenol per APR, and tech is drawing labs. Purewick placed for pt comfort.
[2022-07-19 10:49] LABS: MANUAL DIFF FLAG NO
[2022-07-19 10:51] LABS: Basophils Percent Auto 0.6 % (0-2); Eosinophils Absolute Auto 0.1 X10*3/uL (0.0-0.4); Eosinophils Percent Auto 0.9 % (0-4); Hematocrit 37.7 % (37.0-47.0); Hemoglobin 12.3 g/dl (12.0-16.0); Imm Gran Abs Auto 0.02 X10*3/uL (0.00-0.03); Imm Gran Pct Auto 0.3 % (0.0-0.4); Lymphocytes Absolute Auto 0.7 X10*3/uL (1.2-4.9); Lymphocytes Percent Auto 10.5 % (20-40); Mean Corpuscular HGB Conc 32.6 g/dl (31.0-35.0); Mean Corpuscular Hemoglobin 32.4 pg (27.0-33.0); Mean Corpuscular Volume 99.2 fL (80.0-98.0); Mean Platelet Volume 9.5 fL (9.4-12.3); Monocytes Absolute Auto 0.5 X10*3/uL (0.1-1.2); Monocytes Percent Auto 7.5 % (2-11); Neutrophils Absolute Auto 5.5 x10*3/uL (2.0-8.3); Neutrophils Percent Auto 80.2 % (45-73); Platelet Count 208 X10*3/uL (160-400); Red Cell Distribution Width 13.6 % (11.0-16.0); White Blood Count 6.8 X10*3/uL (4.8-10.8)
[2022-07-19 10:56] LABS: Prothrombin Time 11.6 SEC (10.0-13.1)
[2022-07-19 10:59] LABS: Partial Thromboplastin Time 52.4 SEC (26.0-36.4)
[2022-07-19 11:06] LABS: Anion Gap 17 (12-20); Blood Urea Nitrogen 16 mg/dL (9-16); Calcium 8.8 mg/dL (8.4-10.2); Carbon Dioxide 26 mmol/L (22-29); Chloride 103 mmol/L (96-108); Creatinine Clr Calc Pharmacy 86.4; Estimated Glomerular Filt Rate > 60; Glucose Random 112 mg/dL (60-115); Potassium 4.3 mmol/L (3.3-5.1); Sodium 142 mmol/L (135-145)
[2022-07-19 12:00] VITALS: BP 189/83; PULSE 88; RESP 20; O2SAT 93
[2022-07-19] MEDS: oxyCODONE HCl Immed Release 5 MG TABLET PO ×2 (12:23→17:28)
--- NOTE | 2022-07-19 13:33 | PC.NURSE ---
right ankle splint per order. pt has not supplied urine sample as ordered. will ctm
[2022-07-19 14:00] VITALS: BP 195/78; PULSE 86; RESP 18; TEMP 37.1; O2SAT 92
--- NOTE | 2022-07-19 14:50 | PC.NURSE ---
urine sample obtained. pt hypertensive 195/78, PA aware
[2022-07-19 14:57] LABS: Appearance Urine Clear; Color Urine Yellow; Glucose Urine UA Negative (Negative); Leukocyte Esterase Urine Moderate (2+) (Negative); Nitrite Urine Positive (Negative); PH 5.5 (5.0-9.0); UMIC TRIGGER UACC YES; Urine Blood Negative (Negative); Urine Ketones Trace mg/dL (Negative); Urine Protein Negative (Neg-Trace)
[2022-07-19 15:01] LABS: Bacteria Urine 4+ (None Seen); Hyaline Casts Urine 0-2 /LPF (0-2); RBC Urine 0-2 /HPF (0-2); UACC Culture Trigger YES; WBC Urine >50 /HPF (0-5)
--- NOTE | 2022-07-19 15:16 | PHA.MEDREC ---
Pharmacy Consult ? Medication Reconciliation Pharmacy has completed the medication reconciliation. Spoke to patient to confirm meds.
--- NOTE | 2022-07-19 17:34 | PC.NURSE ---
pt awaiting cm/pt eval. pt exp 09/24 pain in right leg fabiana with movement/repositioning. medicated according to APR.
[2022-07-19 19:30] VITALS: BP 209/80; PULSE 86; RESP 18; O2SAT 92
--- NOTE | 2022-07-19 19:35 | PC.NURSE ---
pt hypertensive /, PA aware. PA ordered home medications
[2022-07-19] MEDS: Cholecalciferol (Vitamin D3) 25 MCG TABLET PO (19:50)
[2022-07-19] MEDS: Multivitamin TABLET 1 TAB PO (19:51)
[2022-07-19] MEDS: Furosemide 40 MG TABLET 80 MG PO (19:51)
[2022-07-19] MEDS: oxyBUTYnin chloride ER 5 MG TAB.ER.24 PO (19:51)
--- NOTE | 2022-07-19 20:00 | PC.NURSE ---
home medications do not include BP med until tomorrow at 2100. PA aware and ordering one time BP med
[2022-07-19] MEDS: Simethicone 80 MG TAB.CHEW PO (20:06)
[2022-07-19] MEDS: hydrALAZINE HCl 25 MG TABLET PO (20:06)
[2022-07-19] MEDS: Potassium Chloride ER 20 MEQ TAB.ER.PRT PO (20:06)
[2022-07-19] MEDS: Atorvastatin Calcium 40 MG TABLET PO (20:06)
--- NOTE | 2022-07-19 20:09 | PC.NURSE ---
scanned Migel pt request to take later in the evening. undid admin on APR and will give later
[2022-07-19] MEDS: Celecoxib 100 MG CAPSULE PO (20:10)
[2022-07-19] MEDS: Acetaminophen 325 MG TABLET 650 MG PO (20:15)
[2022-07-19] MEDS: Zolpidem Tartrate 5 MG TABLET PO (21:00)
[2022-07-19 22:29] VITALS: BP 194/83; RESP 18; TEMP 36.7; O2SAT 90
[2022-07-20] VITALS (10 sets, daily range): BP systolic 149–219; BP diastolic 71–91; PULSE 72–88; RESP 18–20; TEMP 36.4–36.9; O2SAT 92–97
[2022-07-20] MEDS: oxyCODONE HCl Immed Release 5 MG TABLET PO ×2 (00:56→10:42)
--- NOTE | 2022-07-20 01:05 | PC.NURSE ---
Informed the hospitalist Babak Tim that pts BP systolic is in the 200s. Pt states she feels fine no signs of hypertension ergency. Pt denies any CP, SOB, feeling of faint, Numbness/tingling to extremities or VILLAREAL. Pt claims her BP is elevated due to pain in her leg ankle. Pain medication given
--- NOTE | 2022-07-20 04:16 | PC.NURSE ---
Pt continues to have an elevated BP, Hospitalist made aware of pts BP. pt denies any symptoms of hypertensive emergency.
[2022-07-20] MEDS: Omeprazole 20 MG CAPSULE.DR PO (06:23)
[2022-07-20] MEDS: Levothyroxine Sodium 125 MCG TABLET PO (06:23)
[2022-07-20 09:19] LABS: COVID-19 Test Negative (Negative); IDNOW Serial# BCCEAD1C
[2022-07-20] MEDS: Furosemide 40 MG TABLET 80 MG PO (10:40)
[2022-07-20] MEDS: Acetaminophen 325 MG TABLET 650 MG PO ×2 (10:40→23:47)
[2022-07-20] MEDS: oxyBUTYnin chloride ER 5 MG TAB.ER.24 PO (10:41)
[2022-07-20] MEDS: Potassium Chloride ER 20 MEQ TAB.ER.PRT PO ×2 (10:41→21:10)
[2022-07-20] MEDS: Valsartan 80 MG TABLET PO (10:41)
[2022-07-20] MEDS: Ferrous Sulfate 324 MG TABLET.DR PO (10:41)
[2022-07-20] MEDS: Multivitamin TABLET 1 TAB PO (10:41)
[2022-07-20] MEDS: Cholecalciferol (Vitamin D3) 25 MCG TABLET PO (10:42)
[2022-07-20] MEDS: Loratadine 10 MG TABLET PO (10:42)
[2022-07-20] MEDS: Celecoxib 100 MG CAPSULE PO ×2 (12:41→21:11)
[2022-07-20] MEDS: Morphine Sulfate Immed Release 15 MG TABLET PO ×3 (12:41→23:47)
--- NOTE | 2022-07-20 13:44 | MHC.CM.ED ---
Received case management consult overnight. Patient came to the ER due to a fall. Found to have leg fx. Physical therapy eval is still pending. Met with patient and daughter, Francesca. Patient lives with her , ambulates with a walker/cane and had no services prior to coming to the hospital. PCP verified. HCP completed, signed and witnessed. Original given to patient. Patient received 4 Pfizer vaccines. Patient has Medicare and GIC. Patient has not been inpatient in any facility in the past 30 days. Patient agreeable to referral being broadcasted to all 3 acute rehabs. If an acute rehab bed can not be offered, patient aware [facility] will cover 80% of the cost of SNF. Patient and Francesca verbalized understanding and are hopeful an acute rehab bed can be offered. Continue to monitor for d/c needs.
--- NOTE | 2022-07-20 17:03 | MHC.CM.ED ---
[facility] able to offer a bed. Request transport 07/21 at 10:30. BLS booked. Patient, RN, provider aware. Paperwork to community facilitator.
--- NOTE | 2022-07-20 18:36 | PC.NURSE ---
Pt with 2 small scabbed skin tears on left lower leg noted. patient stated that she got the tears from EMS when they picked her off the floor last night, refusing tegaderm as skin is very sensitive
[2022-07-20] MEDS: Simethicone 80 MG TAB.CHEW PO (21:10)
[2022-07-20] MEDS: Zolpidem Tartrate 5 MG TABLET PO (21:11)
[2022-07-20] MEDS: Atorvastatin Calcium 40 MG TABLET PO (21:11)
[2022-07-21] VITALS: RESP 18
[2022-07-21] MEDS: Omeprazole 20 MG CAPSULE.DR PO (06:46)
[2022-07-21] MEDS: Levothyroxine Sodium 125 MCG TABLET PO (06:46)
[2022-07-21] MEDS: Morphine Sulfate Immed Release 15 MG TABLET PO (06:52)
[2022-07-21] MEDS: Acetaminophen 325 MG TABLET 650 MG PO (06:53)
[2022-07-21 07:54] VITALS: BP 150/68; PULSE 77; RESP 19; TEMP 36.2; O2SAT 92
--- NOTE | 2022-07-21 08:45 | MHC.CM.ED ---
Patient remains in ER overflow. Patient will transfer to [facility] via BLS at 1030am. Ortho follow up appointment arranged for 08/04 at 1030am. This information was put in patient's chart. Ortho office will reach out to [facility] if they need to change the appointment. Continue to monitor for d/c needs.
[2022-07-21] MEDS: Furosemide 40 MG TABLET 80 MG PO (08:49)
[2022-07-21] MEDS: Loratadine 10 MG TABLET PO (08:49)
[2022-07-21] MEDS: Multivitamin TABLET 1 TAB PO (08:50)
[2022-07-21] MEDS: oxyBUTYnin chloride ER 5 MG TAB.ER.24 PO (08:50)
[2022-07-21] MEDS: Cholecalciferol (Vitamin D3) 25 MCG TABLET PO (08:50)
[2022-07-21] MEDS: Potassium Chloride ER 20 MEQ TAB.ER.PRT PO (08:50)
[2022-07-21] MEDS: Celecoxib 100 MG CAPSULE PO (08:50)
[2022-07-21] MEDS: Ferrous Sulfate 324 MG TABLET.DR PO (08:50)
[2022-07-21 10:00] VITALS: BP 152/76; PULSE 75; RESP 20; TEMP 36.6; O2SAT 92
== END 2022-07-21 11:23 ==
PROVIDERS: Physician Assistant; Physician Assistant Medical; Emergency Provider Internal Medicine; PCP Internal Medicine
DX: S82.831A Other fracture of upper and lower end of right fibula, initial encounter for closed fracture (principal); S82.51XA Displaced fracture of medial malleolus of right tibia, initial encounter for closed fracture; R10.2 Pelvic and perineal pain; N39.0 Urinary tract infection, site not specified; I10 Essential (primary) hypertension; R26.2 Difficulty in walking, not elsewhere classified; M25.571 Pain in right ankle and joints of right foot; W01.0XXA Fall on same level from slipping, tripping and stumbling without subsequent striking against object, initial encounter; Y93.9 Activity, unspecified; Y92.9 Unspecified place or not applicable; Y99.9 Unspecified external cause status; Z20.822 Contact with and (suspected) exposure to COVID-19; Z20.828 Contact with and (suspected) exposure to other viral communicable diseases; Z79.899 Other long term (current) drug therapy; Z87.891 Personal history of nicotine dependence
CPT/HCPCS: 29505; 36415; 72170; 73552; 73590; 73610; 73630; 80048; 81001; 82550; 85025; 85610; 85730; 87086; 87088; 87186; 87635; 97162; 99285

== ENCOUNTER 2022-08-04 07:45 | Outpatient (REF) | payer MEDICARE, OTHER, SELFPAY | END 2022-08-04 07:46 | disposition home or self-care (01) | LOC: HO.HOSX 07:45 | PROVIDERS: Visit Provider Physician Assistant | DX: Z13.89 Encounter for screening for other disorder (principal) ==

== ENCOUNTER 2022-08-13 09:15 | Outpatient (REF) | payer MEDICARE, OTHER, SELFPAY ==
--- NOTE | ~2022-08-13 | XR_ITS ---
EXAMINATION: XR ANKLE, RIGHT CLINICAL INFORMATION: Pain. COMPARISON: Radiographs dated 08/18/2022. TECHNIQUE: AP, lateral, and mortise views of the right ankle. FINDINGS: Bony mineralization is normal. There are stable displaced bimalleolar fractures. No significant new callus formation is seen. No fracture, dislocation or significant joint effusion is seen. Boehler's angle is normal. There is a moderate calcaneal spur. No focal soft tissue swelling, gas or foreign body is seen. XR/XR ankle RT min 3V IMPRESSION: There is stable alignment of bimalleolar fracture fragments. No significant new callus formation is noted.
== END 2022-08-13 09:16 | disposition home or self-care (01) ==
LOC: HO.HOSX 09:15
PROVIDERS: Visit Provider Physician Assistant
DX: S82.841A Displaced bimalleolar fracture of right lower leg, initial encounter for closed fracture (principal); I26.99 Other pulmonary embolism without acute cor pulmonale; E66.01 Morbid (severe) obesity due to excess calories
CPT/HCPCS: 73610; 99202

== ENCOUNTER 2022-09-10 11:23 | Outpatient (AMB) | payer MEDICARE, OTHER, SELFPAY ==
[2022-09-10 11:38] VITALS: BMI 48.7
--- NOTE | 2022-09-10 11:38 | A.OFFVIS_ITS ---
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 After the event she reports that she was in a rehabilitation facility. She developed acute shortness of breath and was subsequently worked up. She was noted to have pulmonary embolism on CT scan. She is currently being maintained on Coumadin. She will require repair of this fracture of the distal end of the fibula. Of note she has been treated in the past for venous disease and has had prior venous ablation is by Dr. Ruiz and Dr. Vallejo [facility] Medical History Hypertension Morbid obesity Post-menopausal Screening for colon cancer Screening for diabetes mellitus Screening for hyperlipidemia Surgical History H/O basal cell carcinoma excision H/O gastric bypass History of section History of colonoscopy History of left hip replacement History of right hip replacement History of tubal ligation Family History Father CHF (congestive heart failure) Metastatic cancer to lung Mother Past heart attack Other Substance abuse Social History Housing: House Alcohol intake: current Alcohol intake frequency: a few times a week Patient Tobacco Use Status: Former Tobacco user Tobacco use type: Cigarette Years Smoked: 22 e-Cigarette/Vaping Use: Never Used Second Hand Smoke Exposure: No Advance Directives Date on File: 07/20/22 service: No Current occupational status: retired Cognitive needs: Yes (cane) Hearing needs: No Vision needs: Yes (glasses) Review of Systems Const Reports as per HPI ENT Reports no additional complaints Card Denies chest pain, Denies chest pain at rest and Denies chest pain with activity Resp Denies chest congestion and Denies cough GI Reports no additional complaints Musc Details: pain over varicosities, aching of lower extremities, swelling, cramping, heaviness and tiredness, itching Denies abnormal gait Skin/Breast Reports pruritus and Denies wounds Neuro Reports no additional complaints and Denies abnormal gait Psych Denies no additional complaints Physical Exam Vital Signs: BMI result Body Mass Index 48.7 Const General: cooperative, healthy appearing and comfortable Orientation/consciousness: oriented to person, oriented to place and oriented to time Neck Carotids: no bruits Chest Chest palpation & inspection: normal inspection of the chest and normal palpation of entire chest wall Resp Effort & Inspection: normal respiratory effort and able to speak in complete sentences Cardio Rate: regular rate Heart sounds: S1 normal heart sound present and S2 normal heart sound present Peripheral pulses: Peripheral pulses 2+ throughout GI Inspection: Yes normal to inspection Skin Other: +2 edema, right foot wrapped with Keny General skin exam: dry skin Neuro General: oriented to person, oriented to place and oriented to time Extrem Right lower extremity: full ROM, normal capillary refill and edema Left lower extremity: full ROM, normal capillary refill and edema Psych Mental Status: mental status grossly normal Assessment & Plan Assessment & Plan (1) Pulmonary embolism: Code(s): I26.99 - Other pulmonary embolism without acute cor pulmonale Plan: In short patient has a prior history of pulmonary embolism. I do think that of vena cava filter is required for the perioperative period as she will be off anticoagulation. The patient will require inferior vena cava placement. She has agreed and we will try to move forward as soon as possible in order to expedite orthopedic repair of that right distal fibula fracture. She will be transition from Coumadin to Lovenox in the Lovenox will be stopped 1 day prior to insertion of filter. Once again we will schedule her as soon as possible as we transition her off of her Coumadin to get to an appropriate INR in order to insert the filter. Thank you for allowing us to assist in her care. If there are any questions or concerns please do not hesitate to contact us. The patient had an opportunity to ask questions regarding the treatment plan. All questions were answered. Imaging studies, laboratory studies and physical exam results were discussed and reviewed in detail. No major barriers to understanding were identified. The patient expressed understanding and agreement with the above treatment plan. The patient is aware they should contact our office by phone for worsening of the current condition or the appearance of new symptoms. Thank you for allowing me to participate in the vascular care of this patient. If you have any questions or concerns regarding the treatment for the above condition please do not hesitate to contact me. The office telephone contact is [phone]. This note is constructed using voice recognition software. While every effort has been made to ensure accuracy, pacu nurse errors may have been included. Thank you for allowing me to participate in the care of your patient. Yours sincerely, Enrique Villarreal MD, FACS, R.P.V.I. Medications: Discontinued levothyroxine 125 mcg PO DAILY 90 tabs 6RF simvastatin 80 mg PO DAILY 90 tabs 8RF pantoprazole 40 mg PO DAILY 90 tabs 8RF romosozumab-aqqg 210 mg (2.34 mL) subcut .4 weeks 2.34 mL 11RF Coding Level of Care Code New Pt Level 4 (07707) Diagnoses Pulmonary embolism I26.99
== END 2022-09-10 12:16 | disposition home or self-care (01) ==
PROVIDERS: PCP Internal Medicine; Visit Provider Surgery Vascular Surgery
DX: I26.99 Other pulmonary embolism without acute cor pulmonale (principal)
CPT/HCPCS: 99204

== ENCOUNTER → 2022-09-10 11:23 | Outpatient (BNVA) | payer OTHER, SELFPAY | PROVIDERS: PCP Internal Medicine; Visit Provider Surgery Vascular Surgery ==

== ENCOUNTER 2022-09-15 06:50 | Day surgery (SDC) | payer MEDICARE, OTHER, SELFPAY ==
[2022-09-15] VITALS (8 sets, daily range): BP systolic 131–150; BP diastolic 50–67; PULSE 64–773; RESP 16; TEMP 36.4–37.1; O2SAT 94–97; BMI 45.5
[2022-09-15 07:09] LABS: MANUAL DIFF FLAG NO
[2022-09-15 07:13] LABS: Basophils Percent Auto 0.6 % (0-2); Eosinophils Absolute Auto 0.1 X10*3/uL (0.0-0.4); Eosinophils Percent Auto 2.6 % (0-4); Hematocrit 37.3 % (37.0-47.0); Hemoglobin 11.7 g/dl (12.0-16.0); Imm Gran Abs Auto 0.02 X10*3/uL (0.00-0.03); Imm Gran Pct Auto 0.4 % (0.0-0.4); Lymphocytes Absolute Auto 0.9 X10*3/uL (1.2-4.9); Lymphocytes Percent Auto 19.3 % (20-40); Mean Corpuscular HGB Conc 31.4 g/dl (31.0-35.0); Mean Corpuscular Hemoglobin 31.8 pg (27.0-33.0); Mean Corpuscular Volume 101.4 fL (80.0-98.0); Mean Platelet Volume 9.7 fL (9.4-12.3); Monocytes Absolute Auto 0.3 X10*3/uL (0.1-1.2); Monocytes Percent Auto 6.4 % (2-11); Neutrophils Absolute Auto 3.3 x10*3/uL (2.0-8.3); Neutrophils Percent Auto 70.7 % (45-73); Platelet Count 244 X10*3/uL (160-400); Red Blood Count 3.68 X10*6/uL (4.20-5.50); Red Cell Distribution Width 13.3 % (11.0-16.0); White Blood Count 4.7 X10*3/uL (4.8-10.8)
[2022-09-15 07:25] LABS: Anion Gap 16 (12-20); Blood Urea Nitrogen 8 mg/dL (9-16); Carbon Dioxide 23 mmol/L (22-29); Chloride 105 mmol/L (96-108); Estimated Glomerular Filt Rate > 60; Glucose Random 108 mg/dL (60-115); Potassium 3.8 mmol/L (3.3-5.1); Sodium 140 mmol/L (135-145)
[2022-09-15 07:29] LABS: INTERNATIONAL NORM RATIO 1.1 (0.9-1.1); Prothrombin Time 13.6 SEC (11.1-13.3)
[2022-09-15 07:32] LABS: Partial Thromboplastin Time 55.4 SEC (26.0-36.4)
--- NOTE | 2022-09-15 09:27 | W.PM.OPN ---
Operative Note Operative Note Date of Service: 09/15/22 Narrative: Angiogram report from [facility] Preoperative diagnosis: Deep venous thrombosis Postoperative diagnosis: Same Procedure: 1. Ultrasound-guided right common femoral vein access 2. Inferior vena cavogram 3. Placement of inferior vena cava filter Surgeon:Enrique Villarreal M.D., FACS, RPVI Pickler Helper:None Anesthesia: Local with moderate conscious sedation. Total intraservice moderate sedation time was 22 minutes. I monitored the patient's level of consciousness and physiologic status continuously throughout the procedure. Specimens:none Drains:none Estimated blood loss: Less than 10 ml Implant: Bard Melanie retrievable vena cava filter Indications: 71-year-old female with a right ankle fracture developed a DVT. Request for IVC filter was placed due to the fact that the patient will be off anticoagulation in the perioperative. The patient has signed the informed consent after reviewing risks, complications, benefits, and alternatives previously discussed with the patient. The patient was given the opportunity to ask any additional questions or voice any concerns. All questions were answered to the patient's satisfaction. Procedure in detail: Patient was brought to the angiography suite prior to which a time-out was called for patient identification and site verification. Bilateral groins were prepped and draped in the standard surgical fashion. Under ultrasound guidance right common femoral vein was punctured with micro puncture needle and wire. Subsequently a precision 5 [place] sheath was then placed. Bentson wire was advanced to the level of the vena cava. Vena cavogram was then undertaken through the 5 [place] sheath. This was a baseline study to define the variant anatomy, caval size, location and number of renal veins, and to evaluate for ileo caval thrombus. Under direct fluoroscopic guidance we exchanged out the 5 [place] sheath for the Bard in Jane sheath. We brought the filter into position. This was then subsequently deployed. The inner cannula was then removed. Through the sheath a hand injection was performed to assess filter position. Once this was accomplished the sheath was then removed, and hemostasis was achieved with 10 minutes of direct compression. No immediate complications occurred and the patient was returned to the recovery suite with no complications Interpretation of films: 1. Ultrasound demonstrates appropriate femoral vein puncture. Image of which was saved. 2. There was no ileal caval thrombus noted 3. There are single renal veins bilaterally and the IVC is normal in caliber. There is no aberrant anatomy. 4. The filter was deployed appropriately and position below the lowest renal vein. Conclusion: 1. Successful placement of Bard Gaines IVC filter 2. Anticoagulation status: Resume regular anticoagulation as indicated 4 hours post filter placement This note is constructed using voice recognition software. While every effort has been made to ensure accuracy, tower switch operator errors may have been included. Thank you for allowing me to participate in the care of your patient. Yours sincerely, Enrique Villarreal MD, FACS, R.P.V.I.
== END 2022-09-15 11:46 | disposition home or self-care (01) ==
PROVIDERS: PCP Internal Medicine; Visit Provider Surgery Vascular Surgery
DX: I26.99 Other pulmonary embolism without acute cor pulmonale (principal); Z79.01 Long term (current) use of anticoagulants; I10 Essential (primary) hypertension; E66.01 Morbid (severe) obesity due to excess calories; Z68.42 Body mass index [BMI] 45.0-49.9, adult; Z85.828 Personal history of other malignant neoplasm of skin; Z88.2 Allergy status to sulfonamides; Z88.8 Allergy status to other drugs, medicaments and biological substances; Z91.040 Latex allergy status; Z98.84 Bariatric surgery status; Z96.643 Presence of artificial hip joint, bilateral; Z87.891 Personal history of nicotine dependence
CPT/HCPCS: 36415; 37191; 80048; 85025; 85610; 85730; 99152; C1769; C1880; C1894; J2250; J3010; Q9967

== ENCOUNTER → 2022-09-15 06:50 | Outpatient (BNV) | payer MEDICARE, OTHER, SELFPAY | PROVIDERS: PCP Internal Medicine; Visit Provider Surgery Vascular Surgery | DX: I26.99 Other pulmonary embolism without acute cor pulmonale (principal) | CPT/HCPCS: 37191 ==

== ENCOUNTER 2022-09-21 10:08 | Outpatient (REF) | payer MEDICARE, OTHER, SELFPAY ==
--- NOTE | ~2022-09-21 | XR_ITS ---
EXAMINATION: XR ANKLE, RIGHT CLINICAL INFORMATION: Pain COMPARISON: 07/19/2022 and 08/13/2022. TECHNIQUE: AP, lateral, and mortise views of the right ankle. FINDINGS: Interval worsening displacement of malleolar fragments compared to 07/19/2022. The lateral malleolar fragment is laterally displaced by at least 0.4 cm. The medial malleolar fragment is laterally displaced by approximately 0.5 cm and there is lateral talar subluxation within the injured mortise. Incidentally noted are small enthesophytes of the calcaneus. The visualized bones of the proximal foot are intact. The previously scattered dystrophic calcifications in soft tissues of the lower leg. XR/XR ankle RT min 3V IMPRESSION: There is malalignment at the ankle with laterally displaced lateral and medial malleolar fragments. The displacement of fragments has worsened compared to 07/19/2022. There is associated lateral talar subluxation within the injured mortise.
== END 2022-09-21 10:09 | disposition home or self-care (01) ==
LOC: HO.HOSX 10:08
PROVIDERS: Visit Provider Orthopaedic Surgery
DX: S82.841A Displaced bimalleolar fracture of right lower leg, initial encounter for closed fracture (principal); I26.99 Other pulmonary embolism without acute cor pulmonale; E66.01 Morbid (severe) obesity due to excess calories
CPT/HCPCS: 73610; 99212

== ENCOUNTER 2022-09-21 11:09 | Outpatient (AMB) | payer MEDICARE, OTHER, SELFPAY ==
--- NOTE | 2022-09-21 11:10 | A.OFFVIS_ITS ---
Intake Intake Visit Reasons: discuss surgery Intake Note: Amber is a 72 year old female who presents today VIA stretcher for her right ankle chuck fracture DOI:08/01/22 to discuss surgery. Allergies bee pollen [Bee Stings] Allergy (Severe, Verified 09/10/22 11:41) ANAPHYLAXIS KAVEH Inhibitors Allergy (Unknown, Verified 09/10/22 11:41) cough adhesive [ADHESIVE] Allergy (Unknown, Verified 09/10/22 11:41) SORES Sulfa (Sulfonamide Antibiotics) Allergy (Unknown, Verified 09/10/22 11:41) HIVES/SWELLING, rash HPI discuss surgery HPI Details Amber is a 72 year old woman who presents to discuss treatment for her right ankle fracture, DOI: 07/18/22. She is seen today on a stretcher. She complains of pain with ankle movement & is unable to weight-bear. She says part of this is due to her bad knees . She has been wearing an ankle splint and not moving it since her injury. She has a hx of a right leg pulmonary embolism on 07/28/22. She had a new IVC filter implanted by Dr. Villarreal on 09/10/22. [facility] Medical History Hypertension Morbid obesity Post-menopausal Screening for colon cancer Screening for diabetes mellitus Screening for hyperlipidemia Surgical History H/O basal cell carcinoma excision H/O gastric bypass History of section History of colonoscopy History of left hip replacement History of right hip replacement History of tubal ligation Family History Father CHF (congestive heart failure) Metastatic cancer to lung Mother Past heart attack Other Substance abuse Social History Housing: House Alcohol intake: current Alcohol intake frequency: a few times a week Patient Tobacco Use Status: Former Tobacco user Tobacco use type: Cigarette Years Smoked: 22 e-Cigarette/Vaping Use: Never Used Second Hand Smoke Exposure: No Advance Directives Date on File: 07/20/22 service: No Current occupational status: retired Cognitive needs: Yes (cane) Hearing needs: No Vision needs: Yes (glasses) Review of Systems Const All systems reviewed & are unremarkable except as noted in HPI and below Physical Exam Const General: no acute distress, alert and awake Orientation/consciousness: patient oriented x3 HEENT Head: Yes normocephalic and Yes atraumatic Eyes EOM: EOMs intact bilaterally Resp Effort & Inspection: normal respiratory effort and able to speak in complete sentences Cardio Jugular venous distension: no JVD Skin General skin exam: turgor normal Rashes: no rashes Neuro General: patient oriented x3 Extrem Other: Right Ankle: Minimal soft tissue swelling Stiff in dorsiflexion No focal TTP Psych Appearance: grossly normal Affect: normal affect Attitude: cooperative Results Reviewed Results Reviewed: I personally reviewed relevant radiographs. chuck with talar tilt, partially healed Assessment & Plan Assessment & Plan (1) Bimalleolar fracture of right ankle: Code(s): S82.841A - Displaced bimalleolar fracture of right lower leg, initial encounter for closed fracture Plan: This is a 72 year old woman with a healed bimalleolar fracture of the right ankle, S/P fall, DOI: 07/18/22. She has pain with ankle ROM, associated with stiffness, and has not been WB since her injury. I recommend she work on ankle ROM and WBAT to improve her function. She was fitted for a walking boot to wear with weight-bearing, as well as a night splint. I ordered in-house PT for her, she will follow up in 6 weeks. We discussed surgical managmenet but the risks exceed the benefit in my opinion. (2) Pulmonary embolism: Code(s): I26.99 - Other pulmonary embolism without acute cor pulmonale Plan: S/P IVC placement by Dr. Villarreal, DOS: 09/10/22. (3) Morbid obesity: Code(s): E66.01 - Morbid (severe) obesity due to excess calories Plan Scribed for Mitesh Chang MD by Ivan Cardenas, medical billing coordinator, on 09/21/22 at 11:40 AM, EST. Orders: Orders XR ankle RT min 3V Today M25.579 - Pain in unspecified ankle and joints of unspecified foot Medications: Discontinued levothyroxine 125 mcg PO DAILY 90 tabs 6RF simvastatin 80 mg PO DAILY 90 tabs 8RF pantoprazole 40 mg PO DAILY 90 tabs 8RF romosozumab-aqqg 210 mg (2.34 mL) subcut .4 weeks 2.34 mL 11RF Coding Level of Care Code Est Pt Level 4 (61235) Diagnoses Bimalleolar fracture of right ankle S82.841A Pulmonary embolism I26.99 Morbid obesity E66.01
== END 2022-09-21 12:02 | disposition home or self-care (01) ==
PROVIDERS: PCP Internal Medicine; Visit Provider Orthopaedic Surgery
DX: S82.841A Displaced bimalleolar fracture of right lower leg, initial encounter for closed fracture (principal)
CPT/HCPCS: 99214

== ENCOUNTER 2022-09-23 05:59 | Outpatient (REF) | payer SELFPAY ==
[2022-09-23 06:24] LABS: Prothrombin Time 49.3 SEC (11.1-13.3)
== END 2022-09-23 06:00 | disposition home or self-care (01) ==
LOC: HO.MMNH1L 05:59
PROVIDERS: Visit Provider Family Medicine
DX: I26.99 Other pulmonary embolism without acute cor pulmonale (principal); E78.5 Hyperlipidemia, unspecified
CPT/HCPCS: 36415; 85610

== ENCOUNTER 2022-10-02 05:52 | Outpatient (REF) | payer SELFPAY ==
[2022-10-02 06:06] LABS: INTERNATIONAL NORM RATIO 3.2 (0.9-1.1); Prothrombin Time 39.3 SEC (11.1-13.3)
== END 2022-10-02 05:53 | disposition home or self-care (01) ==
LOC: HO.MMNH1L 05:52
PROVIDERS: Visit Provider Family Medicine
DX: I26.99 Other pulmonary embolism without acute cor pulmonale (principal)
CPT/HCPCS: 36415; 85610

== ENCOUNTER 2022-11-02 11:24 | Outpatient (AMB) | payer MEDICARE, OTHER, SELFPAY ==
--- NOTE | 2022-11-02 11:27 | MHC.OFFVIS ---
Intake Intake Visit Reasons: OV-Right Ankle Allergies bee pollen [Bee Stings] Allergy (Severe, Verified 09/10/22 11:41) ANAPHYLAXIS KAVEH Inhibitors Allergy (Unknown, Verified 09/10/22 11:41) cough adhesive [ADHESIVE] Allergy (Unknown, Verified 09/10/22 11:41) SORES Sulfa (Sulfonamide Antibiotics) Allergy (Unknown, Verified 09/10/22 11:41) HIVES/SWELLING, rash HPI OV-Right Ankle HPI Details Amber is a 72 year old female who presnets today by stretcher for a follow up of her right ankle chuck fracture from 08/01/22. Patient reports that she is doing well, she is able to weight bear with the walker. She is wearing the boot and taking it off when in bed at rest. [facility] Medical History Hypertension Morbid obesity Post-menopausal Screening for colon cancer Screening for diabetes mellitus Screening for hyperlipidemia Surgical History H/O basal cell carcinoma excision H/O gastric bypass History of section History of colonoscopy History of left hip replacement History of right hip replacement History of tubal ligation Family History Father CHF (congestive heart failure) Metastatic cancer to lung Mother Past heart attack Other Substance abuse Social History Housing: House Alcohol intake: current Alcohol intake frequency: a few times a week Patient Tobacco Use Status: Former Tobacco user Tobacco use type: Cigarette Years Smoked: 22 e-Cigarette/Vaping Use: Never Used Second Hand Smoke Exposure: No Advance Directives Date on File: 07/20/22 service: No Current occupational status: retired Cognitive needs: Yes (cane) Hearing needs: No Vision needs: Yes (glasses) Physical Exam Extrem Other: Skin clean dry and intact over the right ankle. 20 degree arc of motion with no effusion Assessment & Plan Assessment & Plan (1) Bimalleolar fracture of right ankle: Code(s): S82.841A - Displaced bimalleolar fracture of right lower leg, initial encounter for closed fracture Plan: Displaced bimalleolar right ankle fracture treated non operatively given her comorbidities and timing. She is leaving rehab and I recommend weight-bearing as tolerated with the boot. She can follow-up as needed but no acute intervention warranted. Coding Level of Care Code Est Pt Level 3 (89261) Diagnoses Bimalleolar fracture of right ankle S82.841A
== END 2022-11-02 12:00 | disposition home or self-care (01) ==
PROVIDERS: PCP Internal Medicine; Visit Provider Orthopaedic Surgery
DX: S82.841A Displaced bimalleolar fracture of right lower leg, initial encounter for closed fracture (principal)
CPT/HCPCS: 99213

== ENCOUNTER → 2022-11-02 11:24 | Outpatient (BNVA) | payer SELFPAY | PROVIDERS: PCP Internal Medicine; Visit Provider Orthopaedic Surgery | DX: S82.841D Displaced bimalleolar fracture of right lower leg, subsequent encounter for closed fracture with routine healing (principal) | CPT/HCPCS: 99212 ==

== ENCOUNTER 2022-11-12 12:41 | Outpatient (AMB) | payer MEDICARE, OTHER, SELFPAY ==
[2022-11-12 12:46] VITALS: BP 128/68; PULSE 87; O2SAT 98
--- NOTE | 2022-11-12 12:46 | A.OFFPC_ITS ---
Vital Signs 11/12/22 12:46 Height 5 ft 4 in BMI Reason not done Patient refused/unable BP 128/68 Blood Pressure Location Rt brachial Position Sitting Pulse 87 Pulse Source Pulse Oximeter Pulse Oximetry (%) 98 Oxygen Delivery Method Room Air Intake Visit Reasons: [facility] 11/04/22 Broken Ankle Quality Control Clerk Required: No Carpet Tile Layer: Present Accompanied by: Self / Same As Patient Allergies bee pollen [Bee Stings] Allergy (Severe, Verified 11/12/22 12:46) ANAPHYLAXIS KAVEH Inhibitors Allergy (Unknown, Verified 11/12/22 12:46) cough adhesive [ADHESIVE] Allergy (Unknown, Verified 11/12/22 12:46) SORES Sulfa (Sulfonamide Antibiotics) Allergy (Unknown, Verified 11/12/22 12:46) HIVES/SWELLING, rash Medication List - Last Reconciled 11/12/22 by Jeffery Eddy MD bisacodyl (Dulcolax (bisacodyl)) 10 mg [place] DAILY PRN celecoxib 100 mg PO BID cholecalciferol (vitamin D3) 25 mcg PO DAILY cranberry 400 mg PO DAILY diclofenac sodium 1% (Arthritis Pain (diclofenac)) 2 grams topical QID docusate sodium 100 mg PO DAILY ferrous sulfate 325 mg PO DAILY furosemide 80 mg PO DAILY irbesartan 150 mg PO DAILY levothyroxine 125 mcg PO DAILY@0600 magnesium hydroxide (Milk of Magnesia) 5 mL PO DAILY PRN multivitamin 1 tab PO DAILY omeprazole 20 mg PO DAILY ondansetron 4 mg PO Q8H oxybutynin chloride ER 5 mg PO DAILY oxybutynin chloride ER 10 mg PO DAILY pantoprazole 40 mg PO DAILY@0630 potassium citrate ER 20 mEq PO BID pyridoxine (vitamin B6) 25 mg PO DAILY romosozumab-aqqg (Evenity) 210 mg subcut QMONTH Saccharomyces boulardii (Daily Probiotic (S. boulardii)) 250 mg PO BID sennosides (senna) 8.6 mg PO DAILY simethicone (Gas-X) 1 strip PO BEDTIME simvastatin 80 mg PO BEDTIME tramadol 50 mg PO DAILY warfarin 4 mg PO DAILY zolpidem 5 mg PO BEDTIME Tobacco use date assessed: 03/26/22 Fall risk assessment: No Falls in past year Last assessed Fall Risk: 11/12/22 Dental Screening Dental Screen Date: 11/12/22 Did you have a dental visit in the last 12 months?: No Did you have a dental problem in the last 6 months where you did not have access to dental care?: No Was dental information given to patient?: Patient has dentist HPI [facility] 11[facility]04[facility]22 Broken Ankle HPI Details right ankle fx and PE; hyperlipidemia on rx; was in rehab, home for a week and needs to go to [facility] Medical History Morbid obesity Post-menopausal Screening for hyperlipidemia Screening for colon cancer Screening for diabetes mellitus Hypertension Surgical History History of colonoscopy H/O basal cell carcinoma excision H/O gastric bypass History of right hip replacement History of left hip replacement History of tubal ligation History of section Family History Father CHF (congestive heart failure) Metastatic cancer to lung Mother Past heart attack Other Substance abuse Social History Housing: House Alcohol intake: current Alcohol intake frequency: a few times a week Patient Tobacco Use Status: Former Tobacco user Tobacco use type: Cigarette Years Smoked: 22 e-Cigarette/Vaping Use: Never Used Second Hand Smoke Exposure: No Advance Directives Date on File: 07/20/22 service: No Current occupational status: retired Cognitive needs: Yes (cane) Hearing needs: No Vision needs: Yes (glasses) Questionnaire PHQ-9 Over the last 2 weeks, how often have you been bothered by any of the following problems? 1. Little interest or pleasure in doing things: not at all 2. Feeling down, depressed, or hopeless: not at all 3. Trouble falling or staying asleep, or sleeping too much: not at all 4. Feeling tired or having little energy: not at all 5. Poor appetite or overeating: not at all 6. Feeling bad about yourself - or that you are a failure or have let yourself or your family down: not at all 7. Trouble concentrating on things, such as reading the newspaper or watching television: not at all 8. Moving or speaking so slowly that other people could have noticed. Or the opposite - being so fidgety or restless that you have been moving around a lot more than usual: not at all 9. Thoughts that you would be better off or of hurting yourself in some way: not at all Total score: 0 Depression Screening Interpretation: Negative Source: Developed by Drs. Brooks Dill, Meghan Arias, Liam Turcios and colleagues, with an educational pat from [employer]. Thrive Questionnaire Date Thrive assessed: 03/26/22 AUDIT C Alcohol Use Questionnaire (AUDIT-C) 1. How often do you have a drink containing alcohol?: 2-4 times a month 2. How many drinks containing alcohol do you have on a typical day when you are drinking?: 1 or 2 3. How often do you have six or more drinks on one occasion?: Never Total Score: 2 Score Reviewed/Action Taken: Yes NING-7 AMB Questionnaire NING-7 Date NING - 7 assessed: 03/26/22 Source: Developed by Drs. Brooks Dill, Meghan Arias, Liam Turcios and colleagues, with an educational pat from [employer]. Review of Systems Const Denies chills, Denies fatigue, Denies headache(s) and Denies weight loss Eyes Denies change in vision, Denies diplopia and Denies eye pain ENT Denies vertigo, Denies dizziness, Denies headache(s) and Denies nasal discharge Card Denies chest pain, Denies rapid heart rate and Denies dyspnea on exertion Resp Denies chest congestion, Denies cough, Denies pain with cough and Denies dyspnea on exertion GI Denies abdominal pain, Denies hematochezia and Denies change in bowel habits Musc Denies myalgias, Denies arthralgias and Denies joint swelling Skin/Breast Denies lesions and Denies unusual bruising Neuro Denies vertigo, Denies dizziness, Denies headache(s) and Denies focal weakness Endo Denies fatigue Physical exam (Primary Care) Vital Signs: Last Vital Signs Pulse 87 11/12/22 12:46 BP 128/68 11/12/22 12:46 Pulse Ox 98 11/12/22 12:46 Oxygen Delivery Method Room Air 11/12/22 12:46 Tobacco/Smoking Status: Tobacco use Status Tobacco use date assessed 03/26/22 11/12/22 12:59 Patient Tobacco Use Status Former Tobacco user 11/12/22 12:59 Tobacco use type Cigarette 11/12/22 12:59 e-Cigarette/Vaping Use Never Used 11/12/22 12:59 PHQ-9: PHQ-9 Score PHQ-9: Total score 0 11/12/22 13:00 Depression Screening Interpretation: Negative Thrive Assessment: Date of Thrive Assessment Date Thrive assessed 03/26/22 11/12/22 12:59 Const General: cooperative, healthy appearing and no acute distress Orientation/consciousness: oriented to person, oriented to place and oriented to time HENMT Head: Yes normal to inspection, Yes normocephalic and Yes atraumatic Mouth: Normal oral and palatal mucosa present and tongue normal Throat: Yes posterior oropharynx normal and Yes uvula midline Eyes General: appearance normal, both eyes and all related structures Neck Neck: Yes normal visual inspection, Yes full ROM and Yes no lymphadenopathy Thyroid: Thyroid normal Carotids: normal carotid upstroke Chest Chest palpation & inspection: normal inspection of the chest Resp Effort & Inspection: normal respiratory effort and able to speak in complete sentences Auscultation: clear to auscultation bilaterally Cardio Jugular venous distension: no JVD Palpation: normal PMI Rate: regular rate Rhythm: regular rhythm Heart sounds: S1 normal heart sound present and S2 normal heart sound present GI Inspection: Yes normal to inspection Palpation (GI): Soft to palpation and No hepatosplenomegaly present Auscultation: normal bowel sounds General: Yes no CVA tenderness Back/Spine/Pelvis Back: no CVA tenderness Skin General skin exam: no rashes or lesions noted Neuro General: oriented to person, oriented to place and oriented to time Extrem General: Yes normal to inspection and Yes full ROM Assessment and Plan Assessment & Plan (1) Pulmonary embolism: Code(s): I26.99 - Other pulmonary embolism without acute cor pulmonale Plan: cont warf; referred (2) Bimalleolar fracture of right ankle: Code(s): S82.841A - Displaced bimalleolar fracture of right lower leg, initial encounter for closed fracture Plan: as per ortho (3) Hyperlipidemia: Code(s): E78.5 - Hyperlipidemia, unspecified Plan: do labs Orders: Orders Prothrombin Time INR Today I26.99 - Other pulmonary embolism without acute cor pulmonale Complete Blood Count Auto Diff Today D64.9 - Anemia, unspecified Complete Blood Count Auto Diff Today D64.9 - Anemia, unspecified Basic Metabolic Panel Today I26.99 - Other pulmonary embolism without acute cor pulmonale Thyroid Stimulating Hormone Today E03.9 - Hypothyroidism, unspecified Lipid Panel Today E78.5 - Hyperlipidemia, unspecified Thyroid Stimulating Hormone Today E03.9 - Hypothyroidism, unspecified Comprehensive [place]. Panel Fast Today N28.9 - Disorder of kidney and ureter, unspecified Referrals Anticoagulation Service/Clinic I26.99 - Other pulmonary embolism without acute cor pulmonale Medications: Refilled zolpidem 5 mg PO BEDTIME 30 tabs 5RF Coding Level of Care Code Est Pt Level 4 (01263) Diagnoses Pulmonary embolism I26.99 Bimalleolar fracture of right ankle S82.841A Hyperlipidemia E78.5
== END 2022-11-12 13:15 | disposition home or self-care (01) ==
PROVIDERS: PCP Internal Medicine; Visit Provider Internal Medicine
DX: I26.99 Other pulmonary embolism without acute cor pulmonale (principal); S82.841A Displaced bimalleolar fracture of right lower leg, initial encounter for closed fracture; E78.5 Hyperlipidemia, unspecified
CPT/HCPCS: 99214

== ENCOUNTER 2022-11-12 13:30 | Outpatient (REF) | payer MEDICARE, OTHER, SELFPAY ==
[2022-11-12 13:42] LABS: MANUAL DIFF FLAG NO
[2022-11-12 13:59] LABS: Basophils Absolute Auto 0.1 X10*3/uL (0.0-0.2); Eosinophils Absolute Auto 0.1 X10*3/uL (0.0-0.4); Eosinophils Percent Auto 2.6 % (0-4); Hematocrit 39.5 % (37.0-47.0); Hemoglobin 12.7 g/dl (12.0-16.0); Imm Gran Abs Auto 0.01 X10*3/uL (0.00-0.03); Imm Gran Pct Auto 0.2 % (0.0-0.4); Lymphocytes Absolute Auto 0.8 X10*3/uL (1.2-4.9); Lymphocytes Percent Auto 16.3 % (20-40); Mean Corpuscular HGB Conc 32.2 g/dl (31.0-35.0); Mean Corpuscular Hemoglobin 31.6 pg (27.0-33.0); Mean Corpuscular Volume 98.3 fL (80.0-98.0); Mean Platelet Volume 9.8 fL (9.4-12.3); Monocytes Absolute Auto 0.4 X10*3/uL (0.1-1.2); Monocytes Percent Auto 7.2 % (2-11); Neutrophils Absolute Auto 3.7 x10*3/uL (2.0-8.3); Neutrophils Percent Auto 72.7 % (45-73); Platelet Count 298 X10*3/uL (160-400); Red Blood Count 4.02 X10*6/uL (4.20-5.50); Red Cell Distribution Width 14.8 % (11.0-16.0)
[2022-11-12 14:05] LABS: INTERNATIONAL NORM RATIO 2.2 (0.9-1.1); Prothrombin Time 26.7 SEC (11.1-13.3)
[2022-11-12 14:29] LABS: Anion Gap 17 (12-20); Blood Urea Nitrogen 10 mg/dL (9-16); Calcium 9.5 mg/dL (8.4-10.2); Carbon Dioxide 26 mmol/L (22-29); Chloride 101 mmol/L (96-108); Estimated Glomerular Filt Rate > 60; Glucose Random 122 mg/dL (60-115); Potassium 4.4 mmol/L (3.3-5.1); Sodium 140 mmol/L (135-145)
[2022-11-12 14:48] LABS: Thyroid Stimulating Hormone 0.95 uIU/mL (0.32-4.0)
== END 2022-11-12 13:31 | disposition home or self-care (01) ==
LOC: HO.LAB 13:30
PROVIDERS: PCP Internal Medicine; Visit Provider Internal Medicine
DX: I26.99 Other pulmonary embolism without acute cor pulmonale (principal); D64.9 Anemia, unspecified; E03.9 Hypothyroidism, unspecified
CPT/HCPCS: 36415; 80048; 84443; 85025; 85610

== ENCOUNTER 2022-12-17 10:45 | Outpatient (AMB) | payer MEDICARE, OTHER, SELFPAY ==
--- NOTE | 2022-12-17 11:10 | AM.OFFVISNUR ---
Intake Intake Visit Reasons: Evenity injection Allergies bee pollen [Bee Stings] Allergy (Severe, Verified 11/12/22 12:46) ANAPHYLAXIS KAVEH Inhibitors Allergy (Unknown, Verified 11/12/22 12:46) cough adhesive [ADHESIVE] Allergy (Unknown, Verified 11/12/22 12:46) SORES Sulfa (Sulfonamide Antibiotics) Allergy (Unknown, Verified 11/12/22 12:46) HIVES/SWELLING, rash Office Meds romosozumab-aqqg 210 mg/2.34 mL(105 mg/1.17 mL x2)subcutaneous syringe Performing Provider: Brooks Watkins MD Performing Location: [facility] Endocrinology Administered by: Akhil Brown RN on 12/17/22 11:10 Dose Route Admin Location Dispensed Lot Number Expiration Date FORMERLY NAMED [facility] Tip Length Checker 210 mg subcut L and R arm 2.34 mL [id number] 09/14/24 AMGEN Coding Assessment & Plan Assessment & Plan Orders: Orders AMB Romosozumab Injection Patient Supplied Today M81.0 - Age-related osteoporosis without current pathological fracture
== END 2022-12-17 11:08 | disposition home or self-care (01) ==
PROVIDERS: PCP Internal Medicine; Visit Provider Internal Medicine Endocrinology, Diabetes & Metabolism
DX: M81.0 Age-related osteoporosis without current pathological fracture (principal)

== ENCOUNTER → 2022-12-17 10:45 | Outpatient (BNVA) | payer MEDICARE, OTHER, SELFPAY | PROVIDERS: PCP Internal Medicine; Visit Provider Internal Medicine Endocrinology, Diabetes & Metabolism | DX: M81.0 Age-related osteoporosis without current pathological fracture (principal) | CPT/HCPCS: 96372; J3111 ==

== ENCOUNTER 2022-12-29 10:09 | Outpatient (AMB) | payer MEDICARE, OTHER, SELFPAY ==
--- NOTE | 2022-12-29 10:46 | MHC.OFFVISCO ---
Intake Intake Visit Reasons: Anticoagulation Telephone Operator Required: No Allergies bee pollen [Bee Stings] Allergy (Severe, Verified 12/29/22 10:38) ANAPHYLAXIS KAVEH Inhibitors Allergy (Unknown, Verified 12/29/22 10:38) cough adhesive [ADHESIVE] Allergy (Unknown, Verified 12/29/22 10:38) SORES Sulfa (Sulfonamide Antibiotics) Allergy (Unknown, Verified 12/29/22 10:38) HIVES/SWELLING, rash Medication List - Last Reconciled 12/29/22 by Gunjan Bailey RN bisacodyl (Dulcolax (bisacodyl)) 10 mg [place] DAILY PRN celecoxib 100 mg PO BID cholecalciferol (vitamin D3) 25 mcg PO DAILY cranberry 400 mg PO DAILY diclofenac sodium 1% (Arthritis Pain (diclofenac)) 2 grams topical QID PRN docusate sodium 100 mg PO DAILY ferrous sulfate 325 mg PO DAILY furosemide 80 mg PO DAILY irbesartan 150 mg PO DAILY levothyroxine 125 mcg PO DAILY@0600 magnesium hydroxide (Milk of Magnesia) 5 mL PO DAILY PRN multivitamin 2 tabs PO DAILY omeprazole 20 mg PO DAILY ondansetron 4 mg PO Q8H PRN oxybutynin chloride ER 5 mg PO DAILY pantoprazole 40 mg PO DAILY@0630 potassium citrate ER 20 mEq PO BID pyridoxine (vitamin B6) 25 mg PO DAILY romosozumab-aqqg (Evenity) 210 mg (2.34 mL) subcut QMONTH Saccharomyces boulardii (Daily Probiotic (S. boulardii)) 250 mg PO DAILY simethicone (Gas-X) 1 strip PO BEDTIME PRN simvastatin 80 mg PO BEDTIME tramadol 50 mg PO Q8H PRN 7 days warfarin 4 mg See Protocol PO DAILY zolpidem 5 mg PO BEDTIME Is last menstrual period known: No Post menopausal: Yes Patient : No Nursing Note INR: 2.9- in therapeutic range of 2-3 Medications and supplements reviewed No changes in health, diet, medications, or supplements, Denies any signs and symptoms of bleeding or bruising or clotting. Bleeding, bruising, clotting discussed- s/s reviewed Nutritional guidance given - dietary management reviewed, hand outs given Dose: pt states 3mg warfarin daily pt prev had bs vna for poc inr- managed by pcp- states has been on warfarin since 10/07 F/U INR: 1 week Patient verbalizes understanding of instructions given pt to acs in w/c acompanied by daughter shannon. pt with fx ankle right- cast boot. pmh and medications reviewed with pt. she states dvt/pe 09/2022- has clyde filter limited mobility- unable to use [facility] transportation educational material provided and reviewed with pt. 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 Illness/Depression: No Is last menstrual period known: No Post menopausal: Yes Patient : No Surgeries: c- sections, hip replacements, gastric bypass, gfld filter, skin cancer removal/graft Anti-Coag. Education Record Teaching Recipient: Family (daughter present- shannon) and Patient What is the easiest way to learn: Reading, Listening, Demonstration and Education Packet List any additional concerns (family/financial etc.): transportation may be an issue Significant other who can be involved in Teaching Process when Indicated: shannon [facility]- If Barriers are identified, describe method to overcome: unable to use [facility] transportation due to limited mobility Telephone Operator Required: No Readiness To Learn: Good Teaching Methods: Demonstration and Handout Response to Teaching: Reinforcement Needed Re-Education needs: Reinforce Content Education Intervention/Brief Description of Teaching 1. Able to state reason for taking Warfarin: Yes 2. Able to state Pain Management techniques: Yes 3. Able to state action of Warfarin.: Yes Able to state current dose, pill color, how and when Warfarin to be taken: Yes Able to identify signs of bleeding &/or clotting: Yes 4. Able to identify need to keep diet consistent in regard to vitamin K intake: Yes Able to state restriction on alcohol: Yes 5. Able to state need for compliance with PT/INR testing: Yes Describes rationale for carrying ID and wearing Medic Alert bracelet: Yes Patient instructed to monitor for excess bruising or signs/symptoms of clotting or bleeding: Yes 6. Able to state that there are drugs that interact with Warfin: Yes 7. Able to state the need to seek medical attention when illness/injury occur.: Yes Describes the need to avoid activities with high risk of injury: Yes 8. Able to state duration of treatment: Yes 9. Demonstrates understanding of notifying all providers of pending dental surgical, or other invasive procedures: Yes 10. Able to state Home Care instructions Questionnaires HAS-BLED Does the patient had uncontrolled Hypertension?: No Does the patient have renal disease?: Yes Does the patient have liver disease?: No Does the patient have a history of stroke?: No Has the patient had major bleeding or predisposition to bleeding?: No Does the patient have labile INRs?: Yes Is the patient over 65 years of age?: Yes Is the patient on medications that gives them a predisposition to bleeding?: Yes Does the patient use alcohol?: Yes HAS-BLED Score: 5 CHADSVASC Age: 66-74 Gender: Female Does the patient have a history of CHF?: No Does the patient have a history of Hypertension?: Yes Does the patient have a history of Stroke/TIA/Thromboembolism?: No Does the patient have a history of Vascular Disease (prior DE, PAD or aortic plaque)?: No Does the patient have a history of Diabetes?: No CHADS VACS Score: 3 Augustin Prediction Score Rsk VTE Active Cancer: No Previous VTE, excluding superficial vein thrombosis: Yes Reduced mobility: Yes Already known Thrombophilic Condition: No With-in last month Trauma and/or Surgery: No Elderly 70 year or older: Yes Heart and/or Respiratory Failure: No Acute Myocardial infarction and/or Ischemic Stroke: No Acute Infection and/or Rheumatologic Disorder: No Obesity (BMI 30 or greater): Yes Ongoing Hormonal Treatment: No Score: 8 Augustin Score less than 4; Low Risk of VTE Augustin Score 4 or greater; High Risk of VTE Coding Level of Care Code New Patient Level 2 Diagnoses Current use of anticoagulant therapy Z79.01 Results AMB INR Fingerstick AMB INR Fingerstick 2.9 Last Edit by Gunjan Bailey RN on 12/29/22 11:07 Assessment & Plan Assessment & Plan (1) Current use of anticoagulant therapy: Code(s): Z79.01 - bed bug exterminator (current) use of anticoagulants Orders: Orders AMB INR Today Z79.01 - custodial (current) use of anticoagulants Medications: Changed From ondansetron 4 mg PO Q8H 90 tabs 0RF nausea To ondansetron 4 mg PO Q8H PRN nausea
--- NOTE | 2022-12-29 11:49 | MHC.OFFVISCO ---
Intake Intake Visit Reasons: Anticoagulation Weight Caller Required: No Allergies bee pollen [Bee Stings] Allergy (Severe, Verified 12/29/22 10:38) ANAPHYLAXIS KAVEH Inhibitors Allergy (Unknown, Verified 12/29/22 10:38) cough adhesive [ADHESIVE] Allergy (Unknown, Verified 12/29/22 10:38) SORES Sulfa (Sulfonamide Antibiotics) Allergy (Unknown, Verified 12/29/22 10:38) HIVES/SWELLING, rash Medication List - Last Reconciled 12/29/22 by Gunjan Bailey RN bisacodyl (Dulcolax (bisacodyl)) 10 mg [place] DAILY PRN celecoxib 100 mg PO BID cholecalciferol (vitamin D3) 25 mcg PO DAILY cranberry 400 mg PO DAILY diclofenac sodium 1% (Arthritis Pain (diclofenac)) 2 grams topical QID PRN docusate sodium 100 mg PO DAILY ferrous sulfate 325 mg PO DAILY furosemide 80 mg PO DAILY irbesartan 150 mg PO DAILY levothyroxine 125 mcg PO DAILY@0600 magnesium hydroxide (Milk of Magnesia) 5 mL PO DAILY PRN multivitamin 2 tabs PO DAILY omeprazole 20 mg PO DAILY ondansetron 4 mg PO Q8H PRN oxybutynin chloride ER 5 mg PO DAILY pantoprazole 40 mg PO DAILY@0630 potassium citrate ER 20 mEq PO BID pyridoxine (vitamin B6) 25 mg PO DAILY romosozumab-aqqg (Evenity) 210 mg (2.34 mL) subcut QMONTH Saccharomyces boulardii (Daily Probiotic (S. boulardii)) 250 mg PO DAILY simethicone (Gas-X) 1 strip PO BEDTIME PRN simvastatin 80 mg PO BEDTIME tramadol 50 mg PO Q8H PRN 7 days warfarin 4 mg See Protocol PO DAILY zolpidem 5 mg PO BEDTIME Is last menstrual period known: No Post menopausal: Yes Patient : No Anti-Coag Initial Assessment Social Hx Patient Tobacco Use Status: Former Tobacco user Tobacco use type: Cigarette alcohol intake: current Alcohol intake frequency: a few times a week Cardiovascular Hx: HTN Lung Disease HX: DVT/PE (pe- 2022, dvt- 2022) Endocrine Hx: Thyroid Disease Musculoskeletal Hx: Arthritis (hips, knees, back, ankles, hands) Blood Disorder Hx: Hyperlipidemia GI Hx: Other (gerd) Hx: Kidney Disease (hx kidney stones) and Bladder Disorders (urinary incont) Cancer HX: No Psych. Illness/Depression: No Is last menstrual period known: No Post menopausal: Yes Patient : No Surgeries: c- sections, hip replacements, gastric bypass, gfld filter, skin cancer removal/graft Anti-Coag. Education Record Teaching Recipient: Family Weight Caller Required: No Education Intervention/Brief Description of Teaching 9. Demonstrates understanding of notifying all providers of pending dental 10. Able to state Home Care instructions Coding Diagnoses Current use of anticoagulant therapy Z79.01 Results AMB INR Fingerstick AMB INR Fingerstick 2.9 Last Edit by Gunjan Bailey RN on 12/29/22 11:07 Assessment & Plan Assessment & Plan (1) Current use of anticoagulant therapy: Code(s): Z79.01 - intermediate manager (current) use of anticoagulants Category: Medical Orders: Orders AMB INR Today Z79.01 - halfway (current) use of anticoagulants Medications: Changed From ondansetron 4 mg PO Q8H 90 tabs 0RF nausea To ondansetron 4 mg PO Q8H PRN
[2022-12-31 13:33] LABS: Prothrombin Time Whole Bld POC 35.1 sec (11.1-13.5); ~PT, ~INR - Anti Coag Clinic 2.9 (0.9-1.1)
== END 2022-12-29 11:24 | disposition home or self-care (01) ==
LOC: HO.ACS 10:09
PROVIDERS: PCP Internal Medicine; Visit Provider Internal Medicine
DX: Z79.01 Long term (current) use of anticoagulants (principal)

== ENCOUNTER → 2022-12-29 10:09 | Outpatient (BNVA) | payer MEDICARE, OTHER, SELFPAY | PROVIDERS: PCP Internal Medicine; Visit Provider Internal Medicine | DX: I26.99 Other pulmonary embolism without acute cor pulmonale (principal); Z79.01 Long term (current) use of anticoagulants; Z51.81 Encounter for therapeutic drug level monitoring | CPT/HCPCS: 85610; 99202 ==

== ENCOUNTER 2023-01-04 10:06 | Outpatient (AMB) | payer MEDICARE, OTHER, SELFPAY ==
[2023-01-04 10:23] LABS: Prothrombin Time Whole Bld POC 29.9 sec (11.1-13.5); ~PT, ~INR - Anti Coag Clinic 2.5 (0.9-1.1)
--- NOTE | 2023-01-04 10:35 | MHC.OFFVISCO ---
Intake Intake Visit Reasons: Anticoagulation Allergies bee pollen [Bee Stings] Allergy (Severe, Verified 01/04/23 10:15) ANAPHYLAXIS KAVEH Inhibitors Allergy (Unknown, Verified 01/04/23 10:15) cough adhesive [ADHESIVE] Allergy (Unknown, Verified 01/04/23 10:15) SORES Sulfa (Sulfonamide Antibiotics) Allergy (Unknown, Verified 01/04/23 10:15) HIVES/SWELLING, rash Medication List - Last Reconciled 01/04/23 by Genet Munoz RN bisacodyl (Dulcolax (bisacodyl)) 10 mg [place] DAILY PRN celecoxib 100 mg PO BID cholecalciferol (vitamin D3) 25 mcg PO DAILY cranberry 400 mg PO DAILY diclofenac sodium 1% (Arthritis Pain (diclofenac)) 2 grams topical QID PRN docusate sodium 100 mg PO DAILY ferrous sulfate 325 mg PO DAILY furosemide 80 mg PO DAILY irbesartan 150 mg PO DAILY levothyroxine 125 mcg PO DAILY@0600 magnesium hydroxide (Milk of Magnesia) 5 mL PO DAILY PRN multivitamin 2 tabs PO DAILY omeprazole 20 mg PO DAILY ondansetron 4 mg PO Q8H PRN oxybutynin chloride ER 5 mg PO DAILY pantoprazole 40 mg PO DAILY@0630 potassium citrate ER 20 mEq PO BID pyridoxine (vitamin B6) 25 mg PO DAILY romosozumab-aqqg (Evenity) 210 mg (2.34 mL) subcut QMONTH Saccharomyces boulardii (Daily Probiotic (S. boulardii)) 250 mg PO DAILY simethicone (Gas-X) 1 strip PO BEDTIME PRN simvastatin 80 mg PO BEDTIME tramadol 50 mg PO Q8H PRN 7 days warfarin 4 mg See Protocol PO DAILY zolpidem 5 mg PO BEDTIME Nursing Note ON WARFARIN SINCE 09/2022 MAY NEED HEM/ONC APPT FOR ASSESSMENT FOR REASON OF DVT - FROM ANKEL INJURY AND OR OTHER REASON FOR COAGULOPATHY INR: 2.5 in therapeutic range Medications and supplements reviewed No changes in health, diet, medications, or supplements, HAS ORTHO F/U APPT - ANKLE GETTING BETTER Denies any signs and symptoms of bleeding or bruising or clotting. Bleeding, bruising, clotting discussed Nutritional guidance given Dose: KEEP SAME 3MG DAILY F/U INR: 2 WEEKS INR STABLE SINCE 10/07/22 Patient verbalizes understanding of instructions given Anti-Coag Initial Assessment Social Hx Patient Tobacco Use Status: Former Tobacco user Tobacco use type: Cigarette alcohol intake: current Alcohol intake frequency: a few times a week Cardiovascular Hx: HTN Lung Disease HX: DVT/PE (pe- 2022, dvt- 2022) Endocrine Hx: Thyroid Disease Musculoskeletal Hx: Arthritis (hips, knees, back, ankles, hands) Blood Disorder Hx: Hyperlipidemia GI Hx: Other (gerd) Hx: Kidney Disease (hx kidney stones) and Bladder Disorders (urinary incont) Cancer HX: No Psych. Illness/Depression: No Coding Level of Care Code Est Patient Level 1
== END 2023-01-04 10:37 | disposition home or self-care (01) ==
LOC: HO.ACS 10:06
PROVIDERS: PCP Internal Medicine; Visit Provider Internal Medicine
DX: Z79.01 Long term (current) use of anticoagulants (principal)

== ENCOUNTER → 2023-01-04 10:06 | Outpatient (BNVA) | payer MEDICARE, OTHER, SELFPAY | PROVIDERS: PCP Internal Medicine; Visit Provider Internal Medicine | DX: I26.99 Other pulmonary embolism without acute cor pulmonale (principal); Z79.01 Long term (current) use of anticoagulants; Z51.81 Encounter for therapeutic drug level monitoring | CPT/HCPCS: 85610; 99211 ==

== ENCOUNTER → 2023-01-11 10:23 | Outpatient (BNVA) | payer MEDICARE, OTHER, SELFPAY | PROVIDERS: PCP Internal Medicine; Visit Provider Orthopaedic Surgery | DX: S82.841D Displaced bimalleolar fracture of right lower leg, subsequent encounter for closed fracture with routine healing (principal) | CPT/HCPCS: 99212 ==

== ENCOUNTER 2023-01-11 10:53 | Outpatient (AMB) | payer MEDICARE, OTHER, SELFPAY ==
--- NOTE | 2023-01-11 10:54 | MHC.OFFVIS ---
Intake Vital Signs 01/11/23 10:56 Height 5 ft 4 in Intake Visit Reasons: ov- Bimalleolar fracture of right ankle Intake Note: Amber is a 72 year old female who presents today for a follow up of her right ankle Allergies bee pollen [Bee Stings] Allergy (Severe, Verified 01/04/23 10:15) ANAPHYLAXIS KAVEH Inhibitors Allergy (Unknown, Verified 01/04/23 10:15) cough adhesive [ADHESIVE] Allergy (Unknown, Verified 01/04/23 10:15) SORES Sulfa (Sulfonamide Antibiotics) Allergy (Unknown, Verified 01/04/23 10:15) HIVES/SWELLING, rash HPI ov- Bimalleolar fracture of right ankle HPI Details Amber is a 72 year old woman who returns for a follow-up of her right chuck fracture from 08/01/22. She says she is doing well overall, but is still limited in some daily activities. She says she has been walking for ~2 months now. She is able to WB with her walker, and has been WBAT in her walking boot. She removed her boot when in bed at rest. She continues to work with PT, and wanted to know if an ASO would work better for her than a walking boot. She says she has difficulty climbing in/out of a car with the size of her current boot as well as pain in her knees & right hip. She would like something smaller so she can minimize the swinging motion of her leg. [facility] Medical History Morbid obesity Post-menopausal Screening for hyperlipidemia Screening for colon cancer Screening for diabetes mellitus Hypertension Surgical History History of colonoscopy H/O basal cell carcinoma excision H/O gastric bypass History of right hip replacement History of left hip replacement History of tubal ligation History of section Family History Father CHF (congestive heart failure) Metastatic cancer to lung Mother Past heart attack Other Substance abuse Housing: House Alcohol intake: current Alcohol intake frequency: a few times a week Patient Tobacco Use Status: Former Tobacco user Tobacco use type: Cigarette Years Smoked: 22 e-Cigarette/Vaping Use: Never Used Second Hand Smoke Exposure: No Advance Directives Date on File: 07/20/22 service: No Current occupational status: retired 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 Current occupational exposures/hazards: No Cognitive needs: Yes (cane) Hearing needs: No Vision needs: Yes (glasses) Review of Systems Const All systems reviewed & are unremarkable except as noted in HPI and below Physical Exam Const General: no acute distress, alert and awake Orientation/consciousness: patient oriented x3 HEENT Head: Yes normocephalic and Yes atraumatic Eyes EOM: EOMs intact bilaterally Resp Effort & Inspection: normal respiratory effort and able to speak in complete sentences Cardio Jugular venous distension: no JVD Skin General skin exam: turgor normal Rashes: no rashes Neuro General: patient oriented x3 Extrem Other: Right Ankle: No effusion 20 degree arc of motion No focal TTP soft tissues not swollen Psych Appearance: grossly normal Affect: normal affect Attitude: cooperative Assessment & Plan Assessment & Plan (1) Bimalleolar fracture of right ankle: Code(s): S82.841A - Displaced bimalleolar fracture of right lower leg, initial encounter for closed fracture Plan: This is a 72 year old woman with a displaced bimalleolar right ankle fracture, DOI: 08/01/22. This was treated non operatively given her comorbidities and timing. She has been WBAT in a walking boot and using an assistive walker. I recommend she continue activity as tolerated, WBAT with a walking boot and assistive device, and be mindful to not push through pain. She is not a good surgical candidate and I am hesitant to consider surgery at this time. She will continue with PT and wearing her walking boot at this time. If/when her symptoms improve in the following months we may consider her transition to an ASO. She was fitted for a shorter walking boot today. She will follow up in 2-3 months. Plan Scribed for Mitesh Chang MD by Ivan Cardenas, medical resident, on 01/11/23 at 11:30 AM, EST. Coding Level of Care Code Est Pt Level 4 (56935) Diagnoses Bimalleolar fracture of right ankle S82.841A
== END 2023-01-11 11:42 | disposition home or self-care (01) ==
PROVIDERS: PCP Internal Medicine; Visit Provider Orthopaedic Surgery
DX: S82.841A Displaced bimalleolar fracture of right lower leg, initial encounter for closed fracture (principal)
CPT/HCPCS: 99213

== ENCOUNTER 2023-01-18 10:15 | Outpatient (AMB) | payer MEDICARE, OTHER, SELFPAY ==
[2023-01-18 10:30] LABS: Prothrombin Time Whole Bld POC 44.5 sec (11.1-13.5); ~PT, ~INR - Anti Coag Clinic 3.7 (0.9-1.1)
--- NOTE | 2023-01-18 10:31 | MHC.OFFVISCO ---
Intake Intake Visit Reasons: Anticoagulation Allergies bee pollen [Bee Stings] Allergy (Severe, Verified 01/18/23 10:22) ANAPHYLAXIS KAVEH Inhibitors Allergy (Unknown, Verified 01/18/23 10:22) cough adhesive [ADHESIVE] Allergy (Unknown, Verified 01/18/23 10:22) SORES Sulfa (Sulfonamide Antibiotics) Allergy (Unknown, Verified 01/18/23 10:22) HIVES/SWELLING, rash Medication List - Last Reconciled 01/18/23 by Gunjan Bailey RN bisacodyl (Dulcolax (bisacodyl)) 10 mg [place] DAILY PRN celecoxib 100 mg PO BID cholecalciferol (vitamin D3) 25 mcg PO DAILY cranberry 400 mg PO DAILY diclofenac sodium 1% (Arthritis Pain (diclofenac)) 2 grams topical QID PRN docusate sodium 100 mg PO DAILY ferrous sulfate 325 mg PO DAILY furosemide 80 mg PO DAILY irbesartan 150 mg PO DAILY levothyroxine 125 mcg PO DAILY@0600 magnesium hydroxide (Milk of Magnesia) 5 mL PO DAILY PRN multivitamin 2 tabs PO DAILY omeprazole 20 mg PO DAILY ondansetron 4 mg PO Q8H PRN 30 days oxybutynin chloride ER 5 mg PO DAILY pantoprazole 40 mg PO DAILY@0630 potassium citrate ER 20 mEq PO BID pyridoxine (vitamin B6) 25 mg PO DAILY romosozumab-aqqg (Evenity) 210 mg (2.34 mL) subcut QMONTH Saccharomyces boulardii (Daily Probiotic (S. boulardii)) 250 mg PO DAILY simethicone (Gas-X) 1 strip PO BEDTIME PRN simvastatin 80 mg PO BEDTIME tramadol 50 mg PO Q8H PRN 7 days warfarin 4 mg See Protocol PO DAILY zolpidem 5 mg PO BEDTIME Nursing Note INR 3.7-? out of therapeutic range of 2-3 Medications and supplements reviewed Patient status: pt w/c, fx ankle with cast boot, diff with transportation- requesting home meter acompanied by delaney who is planning second job c.o increased stress Medications or supplements: no changes, occ tylenol, Diet: same Denies any signs and symptoms of bleeding or clotting or unusual bruising Bleeding, bruising, clotting discussed Nutritional guidance given: eat greens to lower inr, no reds for 2 days Dose: hold warfarin today then cont reg 3mg x 7 F/U INR Date : 1 week? Patient verbalizing understanding of instructions given. Anti-Coag Initial Assessment Social Hx Patient Tobacco Use Status: Former Tobacco user Tobacco use type: Cigarette alcohol intake: current Alcohol intake frequency: a few times a week Cardiovascular Hx: HTN Lung Disease HX: DVT/PE (pe- 2022, dvt- 2022) Endocrine Hx: Thyroid Disease Musculoskeletal Hx: Arthritis (hips, knees, back, ankles, hands) Blood Disorder Hx: Hyperlipidemia GI Hx: Other (gerd) Hx: Kidney Disease (hx kidney stones) and Bladder Disorders (urinary incont) Cancer HX: No Psych. 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
== END 2023-01-18 10:39 | disposition home or self-care (01) ==
LOC: HO.ACS 10:15
PROVIDERS: PCP Internal Medicine; Visit Provider Internal Medicine
DX: Z79.01 Long term (current) use of anticoagulants (principal)

== ENCOUNTER → 2023-01-18 10:15 | Outpatient (BNVA) | payer MEDICARE, OTHER, SELFPAY | PROVIDERS: PCP Internal Medicine; Visit Provider Internal Medicine | DX: I26.99 Other pulmonary embolism without acute cor pulmonale (principal); Z79.01 Long term (current) use of anticoagulants; Z51.81 Encounter for therapeutic drug level monitoring | CPT/HCPCS: 85610; 99211 ==

== ENCOUNTER 2023-01-21 10:56 | Outpatient (AMB) | payer MEDICARE, OTHER, SELFPAY ==
--- NOTE | 2023-01-21 11:27 | AM.OFFVISNUR ---
Intake Intake Visit Reasons: Evenity Allergies bee pollen [Bee Stings] Allergy (Severe, Verified 01/18/23 10:22) ANAPHYLAXIS KAVEH Inhibitors Allergy (Unknown, Verified 01/18/23 10:22) cough adhesive [ADHESIVE] Allergy (Unknown, Verified 01/18/23 10:22) SORES Sulfa (Sulfonamide Antibiotics) Allergy (Unknown, Verified 01/18/23 10:22) HIVES/SWELLING, rash Office Meds romosozumab-aqqg 210 mg/2.34 mL(105 mg/1.17 mL x2)subcutaneous syringe Performing Provider: Brooks Watkins MD Performing Location[place] [facility] [place] Administered by: Jessica Flores LPN on 01/21/23 11:27 Dose Route Admin Location Dispensed Lot Number Expiration Date [facility] Md Allergy Immunology 210 mg subcut Both arms 2.34 mL [id number] 02/14/25 AMGEN Coding Assessment & Plan Assessment & Plan Orders: Orders AMB Romosozumab Injection Patient Supplied Today M81.0 - Age-related osteoporosis without current pathological fracture
== END 2023-01-21 11:28 | disposition home or self-care (01) ==
PROVIDERS: PCP Internal Medicine; Visit Provider Internal Medicine Endocrinology, Diabetes & Metabolism
DX: M81.0 Age-related osteoporosis without current pathological fracture (principal)

== ENCOUNTER → 2023-01-21 10:56 | Outpatient (BNVA) | payer MEDICARE, OTHER, SELFPAY | PROVIDERS: PCP Internal Medicine; Visit Provider Internal Medicine Endocrinology, Diabetes & Metabolism | DX: M81.0 Age-related osteoporosis without current pathological fracture (principal) | CPT/HCPCS: 96372; J3111 ==

== ENCOUNTER 2023-01-25 10:24 | Outpatient (AMB) | payer MEDICARE, OTHER, SELFPAY ==
--- NOTE | 2023-01-25 10:48 | MHC.OFFVISCO ---
Intake Intake Visit Reasons: Anticoagulation Allergies bee pollen [Bee Stings] Allergy (Severe, Verified 01/25/23 10:42) ANAPHYLAXIS KAVEH Inhibitors Allergy (Unknown, Verified 01/25/23 10:42) cough adhesive [ADHESIVE] Allergy (Unknown, Verified 01/25/23 10:42) SORES Sulfa (Sulfonamide Antibiotics) Allergy (Unknown, Verified 01/25/23 10:42) HIVES/SWELLING, rash Medication List - Last Reconciled 01/25/23 by Gunjan Bailey RN bisacodyl (Dulcolax (bisacodyl)) 10 mg [place] DAILY PRN celecoxib 100 mg PO BID cholecalciferol (vitamin D3) 25 mcg PO DAILY cranberry 400 mg PO DAILY diclofenac sodium 1% (Arthritis Pain (diclofenac)) 2 grams topical QID PRN docusate sodium 100 mg PO DAILY ferrous sulfate 325 mg PO DAILY furosemide 80 mg PO DAILY irbesartan 150 mg PO DAILY levothyroxine 125 mcg PO DAILY@0600 magnesium hydroxide (Milk of Magnesia) 5 mL PO DAILY PRN multivitamin 2 tabs PO DAILY omeprazole 20 mg PO DAILY ondansetron 4 mg PO Q8H PRN 30 days oxybutynin chloride ER 5 mg PO DAILY pantoprazole 40 mg PO DAILY@0630 potassium citrate ER 20 mEq PO BID pyridoxine (vitamin B6) 25 mg PO DAILY romosozumab-aqqg (Evenity) 210 mg (2.34 mL) subcut QMONTH Saccharomyces boulardii (Daily Probiotic (S. boulardii)) 250 mg PO DAILY simethicone (Gas-X) 1 strip PO BEDTIME PRN simvastatin 80 mg PO BEDTIME tramadol 50 mg PO Q8H PRN 7 days warfarin 4 mg See Protocol PO DAILY zolpidem 5 mg PO BEDTIME Nursing Note INR: 2.9- in therapeutic range of 2-3 Medications and supplements reviewed- no changes No changes in health, diet, medications, or supplements, Denies any signs and symptoms of bleeding or bruising or clotting. Bleeding, bruising, clotting discussed Nutritional guidance given - include greens in weekly diet Dose: 3mg x 7 F/U INR: 2 weeks Patient verbalizes understanding of instructions given pt to acs in w/c- cast boot/decreased mobility. acompanied by delaney pt would like a coag meter Anti-Coag Initial Assessment Social Hx Patient Tobacco Use Status: Former Tobacco user Tobacco use type: Cigarette alcohol intake: current Alcohol intake frequency: a few times a week Cardiovascular Hx: HTN Lung Disease HX: DVT/PE (pe- 2022, dvt- 2022) Endocrine Hx: Thyroid Disease Musculoskeletal Hx: Arthritis (hips, knees, back, ankles, hands) Blood Disorder Hx: Hyperlipidemia GI Hx: Other (gerd) Hx: Kidney Disease (hx kidney stones) and Bladder Disorders (urinary incont) Cancer HX: No Psych. 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
[2023-01-25 10:49] LABS: Prothrombin Time Whole Bld POC 34.6 sec (11.1-13.5); ~PT, ~INR - Anti Coag Clinic 2.9 (0.9-1.1)
== END 2023-01-25 10:54 | disposition home or self-care (01) ==
LOC: HO.ACS 10:24
PROVIDERS: PCP Internal Medicine; Visit Provider Internal Medicine
DX: Z79.01 Long term (current) use of anticoagulants (principal)

== ENCOUNTER → 2023-01-25 10:24 | Outpatient (BNVA) | payer MEDICARE, OTHER, SELFPAY | PROVIDERS: PCP Internal Medicine; Visit Provider Internal Medicine | DX: I26.99 Other pulmonary embolism without acute cor pulmonale (principal); Z79.01 Long term (current) use of anticoagulants; Z51.81 Encounter for therapeutic drug level monitoring | CPT/HCPCS: 85610; 99211 ==

== ENCOUNTER 2023-02-09 09:54 | Outpatient (AMB) | payer MEDICARE, OTHER, SELFPAY ==
--- NOTE | 2023-02-09 10:13 | MHC.OFFVISCO ---
Intake Intake Visit Reasons: Anticoagulation Allergies bee pollen [Bee Stings] Allergy (Severe, Verified 02/09/23 10:09) ANAPHYLAXIS KAVEH Inhibitors Allergy (Unknown, Verified 02/09/23 10:09) cough adhesive [ADHESIVE] Allergy (Unknown, Verified 02/09/23 10:09) SORES Sulfa (Sulfonamide Antibiotics) Allergy (Unknown, Verified 02/09/23 10:09) HIVES/SWELLING, rash Medication List - Last Reconciled 02/09/23 by Gunjan Bailey RN bisacodyl (Dulcolax (bisacodyl)) 10 mg [place] DAILY PRN celecoxib 100 mg PO BID cholecalciferol (vitamin D3) 25 mcg PO DAILY cranberry 400 mg PO DAILY diclofenac sodium 1% (Arthritis Pain (diclofenac)) 2 grams topical QID PRN docusate sodium 100 mg PO DAILY ferrous sulfate 325 mg PO DAILY furosemide 80 mg PO DAILY irbesartan 150 mg PO DAILY levothyroxine 125 mcg PO DAILY@0600 magnesium hydroxide (Milk of Magnesia) 5 mL PO DAILY PRN multivitamin 2 tabs PO DAILY omeprazole 20 mg PO DAILY ondansetron 4 mg PO Q8H PRN 30 days oxybutynin chloride ER 5 mg PO DAILY pantoprazole 40 mg PO DAILY@0630 potassium citrate ER 20 mEq PO BID pyridoxine (vitamin B6) 25 mg PO DAILY romosozumab-aqqg (Evenity) 210 mg (2.34 mL) subcut QMONTH Saccharomyces boulardii (Daily Probiotic (S. boulardii)) 250 mg PO DAILY simethicone (Gas-X) 1 strip PO BEDTIME PRN simvastatin 80 mg PO BEDTIME tramadol 50 mg PO Q8H PRN 7 days warfarin 4 mg See Protocol PO DAILY zolpidem 5 mg PO BEDTIME Nursing Note INR: 2.8- in therapeutic range of 2-3 Medications and supplements reviewed- no changes No changes in health, diet, medications, or supplements, Denies any signs and symptoms of bleeding or bruising or clotting. Bleeding, bruising, clotting discussed Nutritional guidance given - balance Dose: 3mg x 7 F/U INR: pt req 3 weeks Patient verbalizes understanding of instructions given pt requesting home meter- diff with transportation due to hx fx ankle Anti-Coag Initial Assessment Social Hx Patient Tobacco Use Status: Former Tobacco user Tobacco use type: Cigarette alcohol intake: current Alcohol intake frequency: a few times a week Cardiovascular Hx: HTN Lung Disease HX: DVT/PE (pe- 2022, dvt- 2022) Endocrine Hx: Thyroid Disease Musculoskeletal Hx: Arthritis (hips, knees, back, ankles, hands) Blood Disorder Hx: Hyperlipidemia GI Hx: Other (gerd) Hx: Kidney Disease (hx kidney stones) and Bladder Disorders (urinary incont) Cancer HX: No Psych. 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
[2023-02-09 10:15] LABS: Prothrombin Time Whole Bld POC 33.5 sec (11.1-13.5); ~PT, ~INR - Anti Coag Clinic 2.8 (0.9-1.1)
== END 2023-02-09 10:25 | disposition home or self-care (01) ==
LOC: HO.ACS 09:54
PROVIDERS: PCP Internal Medicine; Visit Provider Internal Medicine
DX: Z79.01 Long term (current) use of anticoagulants (principal)

== ENCOUNTER → 2023-02-09 09:54 | Outpatient (BNVA) | payer MEDICARE, OTHER, SELFPAY | PROVIDERS: PCP Internal Medicine; Visit Provider Internal Medicine | DX: I26.99 Other pulmonary embolism without acute cor pulmonale (principal); Z51.81 Encounter for therapeutic drug level monitoring; Z79.01 Long term (current) use of anticoagulants | CPT/HCPCS: 85610; 99211 ==

== ENCOUNTER 2023-02-18 10:07 | Outpatient (AMB) | payer MEDICARE, OTHER, SELFPAY ==
--- NOTE | 2023-02-18 10:01 | MHC.PC.OV ---
Vital Signs 02/18/23 10:01 Height 5 ft 4 in Intake Visit Reasons: 3mon f/u Iphone [phone] Allergies bee pollen [Bee Stings] Allergy (Severe, Verified 02/18/23 10:01) ANAPHYLAXIS KAVEH Inhibitors Allergy (Unknown, Verified 02/18/23 10:01) cough adhesive [ADHESIVE] Allergy (Unknown, Verified 02/18/23 10:01) SORES Sulfa (Sulfonamide Antibiotics) Allergy (Unknown, Verified 02/18/23 10:01) HIVES/SWELLING, rash Medication List - Last Reconciled 02/18/23 by Jeffery Eddy MD bisacodyl (Dulcolax (bisacodyl)) 10 mg [place] DAILY PRN celecoxib 100 mg PO BID cholecalciferol (vitamin D3) 25 mcg PO DAILY cranberry 400 mg PO DAILY diclofenac sodium 1% (Arthritis Pain (diclofenac)) 2 grams topical QID PRN docusate sodium 100 mg PO DAILY ferrous sulfate 325 mg PO DAILY furosemide 80 mg PO DAILY irbesartan 150 mg PO DAILY levothyroxine 125 mcg PO DAILY@0600 magnesium hydroxide (Milk of Magnesia) 5 mL PO DAILY PRN multivitamin 2 tabs PO DAILY omeprazole 20 mg PO DAILY ondansetron 4 mg PO Q8H PRN 30 days oxybutynin chloride ER 5 mg PO DAILY pantoprazole 40 mg PO DAILY@0630 potassium citrate ER 20 mEq PO BID pyridoxine (vitamin B6) 25 mg PO DAILY romosozumab-aqqg (Evenity) 210 mg (2.34 mL) subcut QMONTH Saccharomyces boulardii (Daily Probiotic (S. boulardii)) 250 mg PO DAILY simethicone (Gas-X) 1 strip PO BEDTIME PRN simvastatin 80 mg PO BEDTIME tramadol 50 mg PO Q8H PRN 7 days warfarin 4 mg See Protocol PO DAILY zolpidem 5 mg PO BEDTIME Tobacco use date assessed: 03/26/22 Fall risk assessment: 1 Fall in past year Last assessed Fall Risk: 02/18/23 Dental Screening Dental Screen Date: 02/18/23 Did you have a dental visit in the last 12 months?: No Did you have a dental problem in the last 6 months where you did not have access to dental care?: No Was dental information given to patient?: Patient has dentist HPI 3mon f/u Iphone [phone] HPI Details hyperlip on rx; due for labs [facility] Medical History Morbid obesity Post-menopausal Screening for hyperlipidemia Screening for colon cancer Screening for diabetes mellitus Hypertension Surgical History History of colonoscopy H/O basal cell carcinoma excision H/O gastric bypass History of right hip replacement History of left hip replacement History of tubal ligation History of section Family History Father CHF (congestive heart failure) Metastatic cancer to lung Mother Past heart attack Other Substance abuse Social History Housing: House Alcohol intake: current Alcohol intake frequency: a few times a week Patient Tobacco Use Status: Former Tobacco user Tobacco use type: Cigarette Years Smoked: 22 e-Cigarette/Vaping Use: Never Used Second Hand Smoke Exposure: No Advance Directives Date on File: 07/20/22 service: No 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 1. Little interest or pleasure in doing things: not at all 2. Feeling down, depressed, or hopeless: not at all 3. Trouble falling or staying asleep, or sleeping too much: not at all 4. Feeling tired or having little energy: not at all 5. Poor appetite or overeating: not at all 6. Feeling bad about yourself - or that you are a failure or have let yourself or your family down: not at all 7. Trouble concentrating on things, such as reading the newspaper or watching television: not at all 8. Moving or speaking so slowly that other people could have noticed. Or the opposite - being so fidgety or restless that you have been moving around a lot more than usual: not at all 9. Thoughts that you would be better off or of hurting yourself in some way: not at all Total score: 0 Depression Screening Interpretation: Negative Depression Screening Done: Yes Source: Developed by Drs. Brooks Dill, Liam Cabrera and colleagues, with an educational pat from [employer]. Thrive Questionnaire Date Thrive assessed: 02/18/23 I am a: Patient What is your living situation today?: I have a steady place to live Within the past 12 months, did the food you bought not last and you didn't have the money to get more?: Never true Within the past 12 months, did you worry whether your food would run out before you got money to buy more?: Never true Do you have trouble paying for medicines?: No Do you have trouble getting transportation to medical appointments?: No Do you have trouble paying your heating and electricity bill?: No Do you have trouble taking care of your child, family member or friend?: No Do you have trouble with day-to-day activities such as bathing, preparing meals, shopping, managing finances, etc.?: No Are you currently unemployed and looking for a job?: No AUDIT C Alcohol Use Questionnaire (AUDIT-C) 1. How often do you have a drink containing alcohol?: 2-4 times a month 2. How many drinks containing alcohol do you have on a typical day when you are drinking?: 1 or 2 3. How often do you have six or more drinks on one occasion?: Never Total Score: 2 Score Reviewed/Action Taken: Yes NING-7 AMB Questionnaire NING-7 Date NING - 7 assessed: 02/18/23 Feeling nervous, anxious, or on edge: 0 = Not at all Not being able to stop or control worryin = Not at all Worrying too much about different things: 0 = Not at all Trouble relaxin = Not at all Being so restless that it is hard to sit still: 0 = Not at all Becoming easily annoyed or irritable: 0 = Not at all Feeling afraid as if something awful might happen: 0 = Not at all Total NING-7 score (0-4 normal; 5-9 mild; 10-14 moderate; 15-21 severe): 0 Source: Developed by Meghan Elizabeth Kurt Kroenke and colleagues, with an educational pat from [employer]. Review of Systems Const Denies chills, Denies headache(s) and Denies weight loss ENT Denies headache(s) Card Denies chest pain, Denies syncope, Denies irregular heart rhythm and Denies dyspnea Resp Denies chest congestion, Denies cough and Denies dyspnea GI Denies abdominal pain, Denies change in stool character, Denies nausea and Denies vomiting Musc Denies deformity and Denies joint swelling Neuro Denies syncope and Denies headache(s) Physical exam (Primary Care) Tobacco/Smoking Status: Tobacco use Status Tobacco use date assessed 03/26/22 02/18/23 10:03 Patient Tobacco Use Status Former Tobacco user 02/18/23 10:03 Tobacco use type Cigarette 02/18/23 10:03 e-Cigarette/Vaping Use Never Used 02/18/23 10:03 PHQ-9: PHQ-9 Score PHQ-9: Total score 0 02/18/23 10:03 Depression Screening Interpretation: Negative Thrive Assessment: Date of Thrive Assessment Date Thrive assessed 02/18/23 02/18/23 10:03 Telehealth Telehealth Location of provider rendering services: practice address Location of patient: address on file Patient Identification confirmed using: Name, : Yes Telehealth method: voice only Patient verbally consented to treatment: Yes Patient verbally consented to billing insurance company: Yes Patient informed of any privacy concerns related to visit: Yes Minutes spent on Phone/Video with Pt.: 15 (telephone) Assessment and Plan Assessment & Plan (1) Hyperlipidemia: Code(s): E78.5 - Hyperlipidemia, unspecified Plan: stable; same rx Coding Level of Care Code Tele Est Pt Level 3 (08572) Diagnoses Hyperlipidemia E78.5
== END 2023-02-18 11:40 | disposition home or self-care (01) ==
LOC: HO.HMGH 10:07
PROVIDERS: PCP Internal Medicine; Visit Provider Internal Medicine
DX: E78.5 Hyperlipidemia, unspecified (principal)
CPT/HCPCS: 99442

== ENCOUNTER 2023-02-25 11:42 | Outpatient (AMB) | payer MEDICARE, OTHER, SELFPAY ==
--- NOTE | 2023-02-25 12:00 | AM.OFFVISNUR ---
Intake Intake Visit Reasons: Evenity Allergies bee pollen [Bee Stings] Allergy (Severe, Verified 02/18/23 10:01) ANAPHYLAXIS KAVEH Inhibitors Allergy (Unknown, Verified 02/18/23 10:01) cough adhesive [ADHESIVE] Allergy (Unknown, Verified 02/18/23 10:01) SORES Sulfa (Sulfonamide Antibiotics) Allergy (Unknown, Verified 02/18/23 10:01) HIVES/SWELLING, rash Office Meds romosozumab-aqqg 210 mg/2.34 mL(105 mg/1.17 mL x2)subcutaneous syringe Performing Provider: Brooks Watkins MD Performing [place] [facility] [place] [facility] Administered by: Jessica Flores LPN on 02/25/23 12:00 Dose Route Admin Location Dispensed Lot Number Expiration Date [facility] 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
== END 2023-02-25 12:49 | disposition home or self-care (01) ==
PROVIDERS: PCP Internal Medicine; Visit Provider Internal Medicine Endocrinology, Diabetes & Metabolism
DX: M81.0 Age-related osteoporosis without current pathological fracture (principal)

== ENCOUNTER → 2023-02-25 11:42 | Outpatient (BNVA) | payer MEDICARE, OTHER, SELFPAY | PROVIDERS: PCP Internal Medicine; Visit Provider Internal Medicine Endocrinology, Diabetes & Metabolism | DX: M81.0 Age-related osteoporosis without current pathological fracture (principal) | CPT/HCPCS: 96372; J3111 ==

== ENCOUNTER 2023-03-01 10:30 | Outpatient (AMB) | payer MEDICARE, OTHER, SELFPAY ==
[2023-03-01 10:42] LABS: Prothrombin Time Whole Bld POC 45.8 sec (11.1-13.5); ~PT, ~INR - Anti Coag Clinic 3.8 (0.9-1.1)
--- NOTE | 2023-03-01 10:52 | MHC.OFFVISCO ---
Intake Intake Visit Reasons: Anticoagulation Allergies bee pollen [Bee Stings] Allergy (Severe, Verified 03/01/23 10:32) ANAPHYLAXIS KAVEH Inhibitors Allergy (Unknown, Verified 03/01/23 10:32) cough adhesive [ADHESIVE] Allergy (Unknown, Verified 03/01/23 10:32) SORES Sulfa (Sulfonamide Antibiotics) Allergy (Unknown, Verified 03/01/23 10:32) HIVES/SWELLING, rash Medication List - Last Reconciled 03/01/23 by Noemi Roberts RN acetaminophen 500 mg PO Q6H PRN bisacodyl (Dulcolax (bisacodyl)) 10 mg [place] DAILY PRN celecoxib 100 mg PO BID cholecalciferol (vitamin D3) 25 mcg PO DAILY cranberry 400 mg PO DAILY diclofenac sodium 1% (Arthritis Pain (diclofenac)) 2 grams topical QID PRN docusate sodium 100 mg PO DAILY ferrous sulfate 325 mg PO DAILY furosemide 80 mg PO DAILY irbesartan 150 mg PO DAILY levothyroxine 125 mcg PO DAILY@0600 magnesium hydroxide (Milk of Magnesia) 5 mL PO DAILY PRN multivitamin 2 tabs PO DAILY omeprazole 20 mg PO DAILY ondansetron 4 mg PO Q8H PRN 30 days oxybutynin chloride ER 5 mg PO DAILY pantoprazole 40 mg PO DAILY@0630 potassium citrate ER 20 mEq PO BID pyridoxine (vitamin B6) 25 mg PO DAILY romosozumab-aqqg (Evenity) 210 mg (2.34 mL) subcut QMONTH Saccharomyces boulardii (Daily Probiotic (S. boulardii)) 250 mg PO DAILY simethicone (Gas-X) 1 strip PO BEDTIME PRN simvastatin 80 mg PO BEDTIME warfarin 4 mg See Protocol PO DAILY zolpidem 5 mg PO BEDTIME Nursing Note To ACS via WC accomp by adult daughter, feeling ok Medications and supplements reviewed, noted pt not on tramadol anymore won't give me anymore sts she is taking tylenol frequently around the clock, for the arthritis and right ankle issues (wearing boot s/p right ankle FX) reviewed tylenol dosing and liver and impact on INR No other changes in health, diet, medications, or supplements Denies any unusual signs and symptoms of bruising, bleeding Denies any new Chest pain, SOB, or clotting INR: 3.8 above therapeutic range Nutritional guidance given:sts she had cooked spinach last night and broccoli night before that, reviewed Vitamin K, dark leafy veggies, increase in Vitamin K with cooked and good that she had that as her INR would probably be higher, to continue with greens while taking tylenol around the clock Dose: hold warfarin today then resume usual 3mg daily dosing tomorrow; F/U INR: 1 week Patient verbalizes understanding of instructions given with accurate read back/ teach back of dosing pt sts that told her she was approved for a meter, sts she has not heard back from insurance yet Anti-Coag Initial Assessment Social Hx Patient Tobacco Use Status: Former Tobacco user Tobacco use type: Cigarette alcohol intake: current Alcohol intake frequency: a few times a week Cardiovascular Hx: HTN Lung Disease HX: DVT/PE (pe- 2022, dvt- 2022) Endocrine Hx: Thyroid Disease Musculoskeletal Hx: Arthritis (hips, knees, back, ankles, hands) Blood Disorder Hx: Hyperlipidemia GI Hx: Other (gerd) Hx: Kidney Disease (hx kidney stones) and Bladder Disorders (urinary incont) Cancer HX: No Psych. 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
== END 2023-03-01 11:03 | disposition home or self-care (01) ==
LOC: HO.ACS 10:30
PROVIDERS: PCP Internal Medicine; Visit Provider Internal Medicine
DX: Z79.01 Long term (current) use of anticoagulants (principal)

== ENCOUNTER → 2023-03-01 10:30 | Outpatient (BNVA) | payer MEDICARE, OTHER, SELFPAY | PROVIDERS: PCP Internal Medicine; Visit Provider Internal Medicine | DX: I26.99 Other pulmonary embolism without acute cor pulmonale (principal); Z79.01 Long term (current) use of anticoagulants; Z51.81 Encounter for therapeutic drug level monitoring | CPT/HCPCS: 85610; 99211 ==

== ENCOUNTER 2023-03-08 15:25 | Outpatient (AMB) | payer MEDICARE, OTHER, SELFPAY ==
--- NOTE | 2023-03-08 15:31 | MHC.OFFVISCO ---
Intake Intake Visit Reasons: Anticoagulation Allergies bee pollen [Bee Stings] Allergy (Severe, Verified 03/08/23 15:26) ANAPHYLAXIS KAVEH Inhibitors Allergy (Unknown, Verified 03/08/23 15:26) cough adhesive [ADHESIVE] Allergy (Unknown, Verified 03/08/23 15:26) SORES Sulfa (Sulfonamide Antibiotics) Allergy (Unknown, Verified 03/08/23 15:26) HIVES/SWELLING, rash Medication List - Last Reconciled 03/08/23 by Gunjan Bailey RN acetaminophen 500 mg PO Q6H PRN bisacodyl (Dulcolax (bisacodyl)) 10 mg [place] DAILY PRN celecoxib 100 mg PO BID cholecalciferol (vitamin D3) 25 mcg PO DAILY cranberry 400 mg PO DAILY diclofenac sodium 1% (Arthritis Pain (diclofenac)) 2 grams topical QID PRN docusate sodium 100 mg PO DAILY ferrous sulfate 325 mg PO DAILY furosemide 80 mg PO DAILY irbesartan 150 mg PO DAILY levothyroxine 125 mcg PO DAILY@0600 magnesium hydroxide (Milk of Magnesia) 5 mL PO DAILY PRN multivitamin 2 tabs PO DAILY omeprazole 20 mg PO DAILY ondansetron 4 mg PO Q8H PRN 30 days oxybutynin chloride ER 5 mg PO DAILY pantoprazole 40 mg PO DAILY@0630 potassium citrate ER 20 mEq PO BID pyridoxine (vitamin B6) 25 mg PO DAILY romosozumab-aqqg (Evenity) 210 mg (2.34 mL) subcut QMONTH Saccharomyces boulardii (Daily Probiotic (S. boulardii)) 250 mg PO DAILY simethicone (Gas-X) 1 strip PO BEDTIME PRN simvastatin 80 mg PO BEDTIME warfarin 4 mg See Protocol PO DAILY zolpidem 5 mg PO BEDTIME Nursing Note INR: 2.9- in therapeutic range of 2-3 Medications and supplements reviewed No changes in health, diet, medications, or supplements, Denies any signs and symptoms of bleeding or bruising or clotting. Bleeding, bruising, clotting discussed Nutritional guidance given Dose: 3mg x 7 F/U INR: 2 weeks Patient verbalizes understanding of instructions given pt to acs in w/c with [facility]- they state have been approved for meter. req training date of 03/15/23. awaiting meter from [employer] Anti-Coag Initial Assessment Social Hx Patient Tobacco Use Status: Former Tobacco user Tobacco use type: Cigarette alcohol intake: current Alcohol intake frequency: a few times a week Cardiovascular Hx: HTN Lung Disease HX: DVT/PE (pe- 2022, dvt- 2022) Endocrine Hx: Thyroid Disease Musculoskeletal Hx: Arthritis (hips, knees, back, ankles, hands) Blood Disorder Hx: Hyperlipidemia GI Hx: Other (gerd) Hx: Kidney Disease (hx kidney stones) and Bladder Disorders (urinary incont) Cancer HX: No Psych. Illness/Depression: No Coding Level of Care Code Est Patient Level 1 Diagnoses Current use of anticoagulant therapy Z79.01 Results AMB INR Fingerstick AMB INR Fingerstick 2.9 Last Edit by Gunjan Bailey RN on 03/08/23 15:32 Assessment & Plan Assessment & Plan (1) Current use of anticoagulant therapy: Code(s): Z79.01 - assisted (current) use of anticoagulants Category: Medical
[2023-03-08 15:32] LABS: Prothrombin Time Whole Bld POC 35.3 sec (11.1-13.5); ~PT, ~INR - Anti Coag Clinic 2.9 (0.9-1.1)
== END 2023-03-08 15:39 | disposition home or self-care (01) ==
LOC: HO.ACS 15:25
PROVIDERS: PCP Internal Medicine; Visit Provider Internal Medicine
DX: Z79.01 Long term (current) use of anticoagulants (principal)

== ENCOUNTER → 2023-03-08 15:25 | Outpatient (BNVA) | payer MEDICARE, OTHER, SELFPAY | PROVIDERS: PCP Internal Medicine; Visit Provider Internal Medicine | DX: I26.99 Other pulmonary embolism without acute cor pulmonale (principal); Z79.01 Long term (current) use of anticoagulants; Z51.81 Encounter for therapeutic drug level monitoring | CPT/HCPCS: 85610; 99211 ==

== ENCOUNTER 2023-03-10 00:07 | Emergency (ER) | payer MEDICARE, OTHER, SELFPAY ==
--- NOTE | ~2023-03-10 | CT_ITS ---
EXAMINATION: NONCONTRAST HEAD CT NONCONTRAST MAXILLOFACIAL CT NONCONTRAST CERVICAL SPINE CT INDICATION INFORMATION: Fall COMPARISON: 12/01/2017 TECHNIQUE: Separate noncontrast CT examinations of the head, maxillofacial bones, and cervical spine were performed. Coronal and sagittal images were created for each examination at the technologist workstation. DOSE LOWERING TECHNIQUES: This CT examination was performed using dose optimization techniques as appropriate, variously including the following: - Automated exposure control - Adjustment of mA and/or kV according to patient size (this includes techniques or standardized protocols for targeted exams were dose is matched to indication/reason for exam; i.e. extremities or head) - Use of iterative reconstruction technique DLP: 1615 mGy-cm FINDINGS: Head: There is no evidence of acute intracranial hemorrhage or territorial infarction. No abnormal mass-effect or midline shift is seen. Rhodes to white matter differentiation is well preserved. No extra-axial fluid collections are identified. The ventricles are normal in size. There is mild periventricular white matter hypoattenuation consistent with chronic small vessel ischemic disease. No acute calvarial fracture is seen. There is frontal scalp soft tissue swelling. The mastoid air cells are well aerated. Maxillofacial: Slightly displaced fracture of the anterior nasal septum, with surrounding soft tissue swelling. Associated nondisplaced nasal bone fracture cannot be excluded. Trace fluid in the bilateral maxillary and sphenoid sinuses. Moderate mucosal thickening of the bilateral ethmoid air cells. Bilateral inferior and middle meati are extensively opacified. Aerosolized material is also present in the nasopharynx, possibly blood products. The mandibular condyles are well-seated in the condylar fossa. The orbits demonstrate a normal appearance bilaterally. The globes are intact, and there are no suspicious findings to suggest retrobulbar hemorrhage. Cervical spine: There is anatomic alignment of the vertebral bodies and posterior elements. Chronic appearing superior endplate Schmorl's nodes are present at C6 and C7. Vertebral body heights are otherwise maintained. Mild disc space narrowing of the lower lumbar spine. Mild, predominantly right-sided facet arthropathy. No evidence of acute fracture. No prevertebral soft tissue swelling. Visualized portions of the lung apices are unremarkable. The thyroid gland is unremarkable. CT/CT cervical spine wo IV con IMPRESSION: 1. Slightly displaced fracture of the anterior nasal septum. Associated nondisplaced nasal bone fracture cannot be excluded. Surrounding soft tissue swelling. 2. Frontal scalp soft tissue swelling. 3. No acute intracranial findings. 4. No acute findings identified in the cervical spine.
[2023-03-10 00:23] VITALS: BP 154/90; BP 155/63; PULSE 77; PULSE 90; RESP 16; O2SAT 96; O2SAT 99; BMI 48.1
[2023-03-10 00:46] VITALS: BP 155/63; PULSE 78; RESP 17; TEMP 36.6; O2SAT 96
--- NOTE | 2023-03-10 00:46 | PC.NURSE ---
Pt is a 72 y/o female who presents from home via EMS s/p unwitnessed fall from the standing position while in the bathroom. No LOC and CSMs are intact in all four extremities. Pt has an egg on her forehead, discoloration on the bridge of her nose, dried blood from nares, and swelling on right side of face. Is on a blood thinner. Reports consumption of a bottle of wine tonight between 2248-3037 hrs and dizziness at time of fall. Pupils are PERRLA. No other obvious injuries noted on assessment. Pt changed into hospital attire.
--- NOTE | 2023-03-10 03:15 | ED_ITS ---
HPI - Fall General Chief Complaint: Fall Stated Complaint: FALL. +HEAD STRIKE. +THINNERS. SEVERE EPISTAXIS Time Seen by Provider: 03/10/23 00:46 Source: patient, family and EMS Mode of arrival: EMS History of Present Illness HPI Narrative: 72-year-old female on chronic anticoagulation states that she was pulling her pajamas on over head became unsteady and fell forward striking her face but denies any loss of consciousness. INR on Wednesday was 2.9. Related Data Home Medications Medication Instructions Recorded Confirmed potassium citrate 10 mEq (1,080 20 meq PO BID 01/31/20 03/01/23 mg) tablet,extended release cholecalciferol (vitamin D3) 25 25 mcg PO DAILY 11/06/20 03/01/23 mcg (1,000 unit) capsule cranberry 400 mg capsule 400 mg PO DAILY 11/06/20 03/01/23 levothyroxine 125 mcg tablet 125 mcg PO DAILY@0600 07/19/22 03/01/23 simvastatin 80 mg tablet 80 mg PO BEDTIME 07/19/22 03/01/23 bisacodyl 10 mg rectal suppository 10 mg UT DAILY PRN 11/02/22 03/01/23 (Dulcolax (bisacodyl)) docusate sodium 100 mg capsule 100 mg PO DAILY 11/02/22 03/01/23 magnesium hydroxide 400 mg/5 mL 5 ml PO DAILY PRN 11/02/22 03/01/23 oral suspension (Milk of Magnesia) omeprazole 20 mg capsule,delayed 20 mg PO DAILY 11/02/22 03/01/23 release pyridoxine (vitamin B6) 50 mg 25 mg PO DAILY 11/02/22 03/01/23 tablet Saccharomyces boulardii 250 mg 250 mg PO DAILY 12/29/22 03/01/23 capsule (Daily Probiotic (S. boulardii)) diclofenac sodium 1 % topical gel 2 g topical QID PRN pain 12/29/22 03/01/23 (Arthritis Pain (diclofenac)) multivitamin 2 tab PO DAILY 12/29/22 03/01/23 simethicone 62.5 mg oral strips 1 strip PO BEDTIME PRN 12/29/22 03/01/23 (Gas-X) acetaminophen 500 mg capsule 500 mg PO Q6H PRN 03/01/23 03/01/23 Previous Rx's Medication Instructions Recorded furosemide 80 mg tablet 80 mg PO DAILY #90 tabs 04/17/21 irbesartan 150 mg tablet 150 mg PO DAILY #90 tabs 05/04/22 oxybutynin chloride 5 mg 5 mg PO DAILY #90 tabs 05/04/22 tablet,extended release 24 hr celecoxib 100 mg capsule 100 mg PO BID #180 caps 07/16/22 ferrous sulfate 325 mg (65 mg 325 mg PO DAILY #90 tabs 11/11/22 iron) tablet romosozumab-aqqg 210 mg/2.34 210 mg (2.34 mL) subcut QMONTH 11/26/22 mL(105 mg/1.17 mL x2)subcutaneous #2.34 mL syringe (Evenity) zolpidem 5 mg tablet 5 mg PO BEDTIME #30 tabs 12/10/22 warfarin 2 mg tablet 4 mg PO DAILY #90 tabs 12/22/22 pantoprazole 40 mg tablet,delayed 40 mg PO DAILY@0630 #90 tabs 12/30/22 release ondansetron 4 mg disintegrating 4 mg PO Q8H PRN nausea 30 days #60 02/11/23 tablet tabs Allergies Allergy/AdvReac Type Severity Reaction Status Date / Time bee pollen [Bee Stings] Allergy Severe ANAPHYLAXIS Verified 03/08/23 15:26 KAVEH Inhibitors Allergy Unknown cough Verified 03/08/23 15:26 adhesive [ADHESIVE] Allergy Unknown SORES Verified 03/08/23 15:26 Sulfa (Sulfonamide Allergy Unknown HIVES/SWELLING, Verified 03/08/23 15:26 Antibiotics) rash Review of Systems Review of Systems: Pertinent positives and negatives as stated in [facility] Past Medical History Source: nursing notes reviewed Medical History Morbid obesity Post-menopausal Screening for hyperlipidemia Screening for colon cancer Screening for diabetes mellitus Hypertension Surgical History History of colonoscopy H/O basal cell carcinoma excision H/O gastric bypass History of right hip replacement History of left hip replacement History of tubal ligation History of section Family History Family History Father CHF (congestive heart failure) Metastatic cancer to lung Mother Past heart attack Other Substance abuse Social History Social History Housing: House Alcohol intake: current Alcohol intake frequency: a few times a week Alcohol type: wine Patient Tobacco Use Status: Former Tobacco user Tobacco use type: Cigarette Years Smoked: 22 Smoked in Last 30 Days: No e-Cigarette/Vaping Use: Never Used Second Hand Smoke Exposure: No Advance Directives: Yes Advance Directives on File: Yes Advance Directives Date on File: 07/20/22 service: No Current occupational status: retired 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 GENERAL: Well developed, well nourished, in no acute distress. HEAD: Normocephalic/large contusion to right forehead in the scalp line EYES: PERRLA, EOMI EARS: Ext canals without abnormality NOSE: Nose is edematous with ecchymosis stretching across the bridge and the inferior border of the left orbit OROPHARYNX: no oral lesions noted, posterior pharynx clear NECK: Supple, no adenopathy LUNGS: Normal breath sounds. No adventitious sounds or accessory muscle use. SpO2<96> CARDIOVASCULAR: Regular rate and rhythm without noted murmurs ABDOMEN: Soft, non-tender, non-distended with bowel sounds. MUSCULOSKELETAL: No tenderness, deformities, or effusions noted on gross inspection. EXTREMITIES: No cyanosis, clubbing or edema. SKIN: Inspection of the skin reveals no rashes NEUROLOGIC: Alert and oriented x 4. Strength and sensation to light touch were grossly intact x 4. Medical Decision Making Medical Decision Making MDM Narrative: 72-year-old female with history and clinical presentation consistent with mechanical fall on chronic anticoagulation, review of CT scans negative for intracranial hemorrhage or mass effect, cervical spine negative for fracture or subluxation and facial series consistent and corroborates the fact that patient has a nose fracture. On evaluation after nose was cleaned there is no septal hematoma. Patient is otherwise discharged with recommended follow-up with ear nose and throat. Differential Diagnosis Differential Diagnoses: The differential diagnosis associated with the presentation includes Please see the discussion above Admission/Observation Consideration of admission/observation: Escalation of care including admission/observation considered Please see the discussion above Radiology Impression Discussion of test interpretation with radiology: I have reviewed the radiologist's reading. Radiologist Impression: Please see the discussion above Critical Care Time Critical Care Time Critical Care Time: Yes Total Critical Care Time: 30 Attestation: I personally attest to this time spent taking care of the patient. Discharge Plan Discharge Clinical Impression: Fall, Chronic anticoagulation, Closed fracture nose Patient Disposition: Home, Self-Care Instructions: Fall Prevention for Older Adults (ED), Nasal Fracture (ED), Blood Thinners (ED) Additional Instructions: 1. Resume all home medications as prescribed. 2. You have been provided with a referral to follow-up with Ear, Nose, Throat and should call the office in the morning to set up an appointment for evaluation and further management. 3. Please call the office of your primary care doctor in the morning as well. Return to the ER for any worsening symptoms. Prescriptions: No Action furosemide 80 mg tablet 80 mg PO DAILY Qty: 90 8RF irbesartan 150 mg tablet 150 mg PO DAILY Qty: 90 8RF oxybutynin chloride 5 mg tablet extended release 24hr 5 mg PO DAILY Qty: 90 8RF celecoxib 100 mg capsule 100 mg PO BID Qty: 180 3RF ferrous sulfate 325 mg (65 mg iron) tablet 325 mg PO DAILY Qty: 90 1RF Evenity 210mg/2.34mL ( 105mg/1.17mLx2) syringe 210 mg subcut QMONTH Qty: 2.34 11RF Rx Instructions: LAST DOSE: 06/30/22 zolpidem 5 mg tablet 5 mg PO BEDTIME Qty: 30 5RF warfarin 2 mg tablet 4 mg PO DAILY Qty: 90 3RF Protocol: Dose Management Condition: Wednesday (Week One) Dose/Route: 3 mg Instruction: 1.5 x 2 mg tabl ets Condition: Wednesday Dose/Route: 3 mg Instruction: 1.5 x 2 mg tablets Condition: Wednesday Dose/Route: 3 mg Instruction: 1.5 x 2 mg tablets Condition: Wednesday Dose/Route: 3 mg Instruction: 1.5 x 2 mg tablets Condition: Dose/Route: 3 mg Instruction: 1.5 x 2 mg tablets Condition: Wednesday Dose/Route: 3 mg Instruction: 1.5 x 2 mg tablets Condition: Wednesday Dose/Route: 3 mg Instruction: 1.5 x 2 mg tablets Condition: Wednesday (Week Two) Dose/Route: 3 mg Instruction: 1.5 x 2 mg tablets Condition: Wednesday Dose/Route: 3 mg Instruction: 1.5 x 2 mg tablets Condition: Wednesday Dose/Route: 3 mg Instruction: 1.5 x 2 mg tablets Condition: Wednesday Dose/Route: 3 mg Instruction: 1.5 x 2 mg tablets Condition: Dose/Route: 3 mg Instruction: 1.5 x 2 mg tablets Condition: Wednesday Dose/Route: 3 mg Instruction: 1.5 x 2 mg tablets Condition: Wednesday Dose/Route: 3 mg Instruction: 1.5 x 2 mg tablets Protocol Text: Adjustment Start Date: Wednesday03/08/23 INR Value: 2.9 INR Date: 03/08/23 Recheck Date: 03/22/23 Additional Instructions: cont reg dosing call with any medication changes pantoprazole 40 mg tablet,delayed release (DR/EC) 40 mg PO DAILY@0630 Qty: 90 1RF ondansetron 4 mg tablet,disintegrating 4 mg PO Q8H PRN (Reason: nausea) 30 Days Qty: 60 0RF simvastatin 80 mg tablet 80 mg PO BEDTIME levothyroxine 125 mcg tablet 125 mcg PO DAILY@0600 multivitamin Tablet 2 tab PO DAILY potassium citrate 10 mEq (1,080 mg) tablet extended release 20 meq PO BID cranberry 400 mg capsule 400 mg PO DAILY Rx Instructions: administer with a meal cholecalciferol (vitamin D3) 25 mcg (1,000 unit) capsule 25 mcg PO DAILY Saccharomyces boulardii [Daily Probiotic (S. boulardii)] 250 mg capsule 250 mg PO DAILY Gas-X 62.5 mg strip 1 strip PO BEDTIME PRN docusate sodium 100 mg capsule 100 mg PO DAILY bisacodyl [Dulcolax (bisacodyl)] 10 mg suppository 10 mg UT DAILY PRN magnesium hydroxide [Milk of Magnesia] 400 mg/5 mL suspension 5 ml PO DAILY PRN omeprazole 20 mg capsule,delayed release(DR/EC) 20 mg PO DAILY pyridoxine (vitamin B6) 50 mg tablet 25 mg PO DAILY diclofenac sodium [Arthritis Pain (diclofenac)] 1 % gel 2 g topical QID PRN (Reason: pain) Rx Instructions: apply to single elbow, wrist or hand; for hand includes palm/fingers/back of hand acetaminophen 500 mg capsule 500 mg PO Q6H PRN Referrals: Jeffery Eddy MD [Primary Care Provider] - Tony Ramirez [Physician] -
== END 2023-03-10 03:57 | disposition home or self-care (01) ==
PROVIDERS: Emergency Provider Student in an Organized Health Care Education/Training Program; PCP Internal Medicine
DX: S02.2XXA Fracture of nasal bones, initial encounter for closed fracture (principal); R51.9 Headache, unspecified; M54.2 Cervicalgia; W01.10XA Fall on same level from slipping, tripping and stumbling with subsequent striking against unspecified object, initial encounter; Y93.9 Activity, unspecified; Y92.9 Unspecified place or not applicable; Y99.8 Other external cause status; F17.210 Nicotine dependence, cigarettes, uncomplicated; Z79.899 Other long term (current) drug therapy
CPT/HCPCS: 70450; 70486; 72125; 99284

== ENCOUNTER 2023-03-15 13:36 | Outpatient (AMB) | payer MEDICARE, OTHER, SELFPAY ==
--- NOTE | 2023-03-15 15:28 | MHC.OFFVISCO ---
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 Allergies bee pollen [Bee Stings] Allergy (Severe, Verified 03/15/23 13:38) ANAPHYLAXIS KAVEH Inhibitors Allergy (Unknown, Verified 03/15/23 13:38) cough adhesive [ADHESIVE] Allergy (Unknown, Verified 03/15/23 13:38) SORES Sulfa (Sulfonamide Antibiotics) Allergy (Unknown, Verified 03/15/23 13:38) HIVES/SWELLING, rash Medication List - Last Reconciled 03/15/23 by Noemi Leyva, MAGO acetaminophen 500 mg PO Q6H PRN bisacodyl (Dulcolax (bisacodyl)) 10 mg [place] DAILY PRN celecoxib 100 mg PO BID cholecalciferol (vitamin D3) 25 mcg PO DAILY cranberry 400 mg PO DAILY diclofenac sodium 1% (Arthritis Pain (diclofenac)) 2 grams topical QID PRN docusate sodium 100 mg PO DAILY ferrous sulfate 325 mg PO DAILY furosemide 80 mg PO DAILY irbesartan 150 mg PO DAILY levothyroxine 125 mcg PO DAILY@0600 magnesium hydroxide (Milk of Magnesia) 5 mL PO DAILY PRN multivitamin 2 tabs PO DAILY omeprazole 20 mg PO DAILY ondansetron 4 mg PO Q8H PRN 30 days oxybutynin chloride ER 5 mg PO DAILY pantoprazole 40 mg PO DAILY@0630 potassium citrate ER 20 mEq PO BID pyridoxine (vitamin B6) 25 mg PO DAILY romosozumab-aqqg (Evenity) 210 mg (2.34 mL) subcut QMONTH Saccharomyces boulardii (Daily Probiotic (S. boulardii)) 250 mg PO DAILY simethicone (Gas-X) 1 strip PO BEDTIME PRN simvastatin 80 mg PO BEDTIME warfarin 4 mg See Protocol PO DAILY zolpidem 5 mg PO BEDTIME Nursing Note meter training successful with pt and daughter INR 1.7? out of therapeutic range Medications and supplements reviewed Patient status: fall reported on 03/10/23 see note large bruise covering face, nose bleeds have since stopped- to f[facility]u [facility] due to fracture Medications or supplements: she has changed some of her meds that could cause bleeding or falling, stopped cranberry decrease celebrex, Ambien Diet: she ate a lot of greens due to her bleeding and bruising post fall to decrease risk of further bleeding Denies any signs and symptoms of bleeding or clotting or unusual bruising Bleeding, bruising, clotting discussed Nutritional guidance given: decrease greens and resume usual diet Dose: 4mg today then 3mg d aily F/U INR Date : this week due to bruising and?changing her meds? Patient and daughter verbalizing understanding of instructions given with readback of how to perform her POC blank dosing forms provided for future instructions Anti-Coag Initial Assessment Social Hx Patient Tobacco Use Status: Former Tobacco user Tobacco use type: Cigarette alcohol intake: current Alcohol intake frequency: a few times a week Cardiovascular Hx: HTN Lung Disease HX: DVT/PE (pe- 2022, dvt- 2022) Endocrine Hx: Thyroid Disease Musculoskeletal Hx: Arthritis (hips, knees, back, ankles, hands) Blood Disorder Hx: Hyperlipidemia GI Hx: Other (gerd) Hx: Kidney Disease (hx kidney stones) and Bladder Disorders (urinary incont) Cancer HX: No Psych. Illness/Depression: No Anti-Coag. 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 Demonstrates understanding of notifying all providers of pending dental 10. 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
[2023-03-16 07:56] LABS: Prothrombin Time Whole Bld POC 20.5 sec (11.1-13.5); ~PT, ~INR - Anti Coag Clinic 1.7 (0.9-1.1)
== END 2023-03-15 15:39 | disposition home or self-care (01) ==
LOC: HO.ACS 13:36
PROVIDERS: PCP Internal Medicine; Visit Provider Internal Medicine
DX: Z79.01 Long term (current) use of anticoagulants (principal)

== ENCOUNTER → 2023-03-15 13:36 | Outpatient (BNVA) | payer MEDICARE, OTHER, SELFPAY | PROVIDERS: PCP Internal Medicine; Visit Provider Internal Medicine | DX: I26.99 Other pulmonary embolism without acute cor pulmonale (principal); Z79.01 Long term (current) use of anticoagulants; Z51.81 Encounter for therapeutic drug level monitoring | CPT/HCPCS: 85610; 99202 ==

== ENCOUNTER → 2023-03-18 11:43 | Outpatient (BNVA) | payer MEDICARE, OTHER, SELFPAY | PROVIDERS: PCP Internal Medicine; Visit Provider Internal Medicine ==

== ENCOUNTER → 2023-03-23 11:31 | Outpatient (BNVA) | payer MEDICARE, OTHER, SELFPAY | PROVIDERS: PCP Internal Medicine; Visit Provider Internal Medicine ==

== ENCOUNTER 2023-03-25 11:12 | Outpatient (AMB) | payer MEDICARE, OTHER, SELFPAY ==
--- NOTE | 2023-03-25 11:40 | AM.OFFVISNUR ---
Intake Intake Visit Reasons: Evenity Allergies bee pollen [Bee Stings] Allergy (Severe, Verified 03/18/23 11:44) ANAPHYLAXIS KAVEH Inhibitors Allergy (Unknown, Verified 03/18/23 11:44) cough adhesive [ADHESIVE] Allergy (Unknown, Verified 03/18/23 11:44) SORES Sulfa (Sulfonamide Antibiotics) Allergy (Unknown, Verified 03/18/23 11:44) HIVES/SWELLING, rash Office Meds romosozumab-aqqg 210 mg/2.34 mL(105 mg/1.17 mL x2)subcutaneous syringe Performing Provider: Brooks Watkins MD [place] [facility] [place] Administered by: Akhil Brown RN on 03/25/23 11:41 Dose Route Admin Location Dispensed Lot Number Expiration Date [facility] Steam Fitter Helper 210 mg subcut L and R arm 2.34 mL [id number] 03/17/25 AMGEN Comments: Patient signed consent and denies adverse effects. Coding Assessment & Plan Assessment & Plan Orders: Orders AMB Romosozumab Injection Patient Supplied Today M81.0 - Age-related osteoporosis without current pathological fracture
== END 2023-03-25 11:48 | disposition home or self-care (01) ==
PROVIDERS: PCP Internal Medicine; Visit Provider Internal Medicine Endocrinology, Diabetes & Metabolism
DX: M81.0 Age-related osteoporosis without current pathological fracture (principal)

== ENCOUNTER → 2023-03-25 11:12 | Outpatient (BNVA) | payer MEDICARE, OTHER, SELFPAY | PROVIDERS: PCP Internal Medicine; Visit Provider Internal Medicine Endocrinology, Diabetes & Metabolism | DX: M81.0 Age-related osteoporosis without current pathological fracture (principal) | CPT/HCPCS: 96372; J3111 ==

== ENCOUNTER → 2023-03-30 10:41 | Outpatient (BNVA) | payer MEDICARE, OTHER, SELFPAY | PROVIDERS: PCP Internal Medicine; Visit Provider Internal Medicine ==

== ENCOUNTER → 2023-04-06 12:04 | Outpatient (BNVA) | payer MEDICARE, OTHER, SELFPAY | PROVIDERS: PCP Internal Medicine; Visit Provider Internal Medicine ==

== ENCOUNTER → 2023-04-08 09:55 | Outpatient (BNVA) | payer MEDICARE, OTHER, SELFPAY | PROVIDERS: PCP Internal Medicine; Visit Provider Internal Medicine ==

== ENCOUNTER → 2023-04-09 14:32 | Outpatient (BNVA) | payer MEDICARE, OTHER, SELFPAY | PROVIDERS: PCP Internal Medicine; Visit Provider Internal Medicine ==

== ENCOUNTER 2023-04-13 09:57 | Outpatient (AMB) | payer MEDICARE, OTHER, SELFPAY ==
--- NOTE | 2023-04-13 10:13 | MHC.OFFVISCO ---
Intake Intake Visit Reasons: Anticoagulation Allergies bee pollen [Bee Stings] Allergy (Severe, Verified 04/09/23 14:33) ANAPHYLAXIS KAVEH Inhibitors Allergy (Unknown, Verified 04/09/23 14:33) cough adhesive [ADHESIVE] Allergy (Unknown, Verified 04/09/23 14:33) SORES Sulfa (Sulfonamide Antibiotics) Allergy (Unknown, Verified 04/09/23 14:33) HIVES/SWELLING, rash Nursing Note INR received from [facility] INR is: 1.9 INR out of range OF 2-3 patient indicated changes in assessment questionnaire, completed antibiotic Telephone call to patient for further assessment, states she feels better Medication or supplement: no new meds Diet: appetite good Dose: continue usual dose of 3mg daily Signs and symptoms of bleeding and bruising discussed, pt states bruising on face is fading and no new bruising or bleeding Patient will go to ER with any signs and symptoms of bleeding, or clotting or unusual bruising? Retest: 1 week Patient verbalizes understanding of instructions given and retest date with read back Anti-Coag Initial Assessment Social Hx Patient Tobacco Use Status: Former Tobacco user Tobacco use type: Cigarette alcohol intake: current Alcohol intake frequency: a few times a week Cardiovascular Hx: HTN Lung Disease HX: DVT/PE Endocrine Hx: Thyroid Disease Musculoskeletal Hx: Arthritis Blood Disorder Hx: Hyperlipidemia GI Hx: Other Hx: Kidney Disease and Bladder Disorders Cancer HX: No Psych. Illness/Depression: No Coding Level of Care Code Est Patient Level 1 Diagnoses Current use of anticoagulant therapy Z79.01 Results AMB INR Fingerstick AMB INR Fingerstick 1.9 Last Edit by Noemi Leyva RN on 04/13/23 10:13 [facility] Assessment & Plan Assessment & Plan (1) Current use of anticoagulant therapy: Code(s): Z79.01 - long term care social worker (current) use of anticoagulants Category: Medical
== END 2023-04-13 10:21 | disposition home or self-care (01) ==
LOC: HO.ACS 09:57
PROVIDERS: PCP Internal Medicine; Visit Provider Internal Medicine
DX: Z79.01 Long term (current) use of anticoagulants (principal)

== ENCOUNTER → 2023-04-13 09:57 | Outpatient (BNVA) | payer MEDICARE, OTHER, SELFPAY | PROVIDERS: PCP Internal Medicine; Visit Provider Internal Medicine | DX: I26.99 Other pulmonary embolism without acute cor pulmonale (principal); Z79.01 Long term (current) use of anticoagulants; Z51.81 Encounter for therapeutic drug level monitoring | CPT/HCPCS: 99211 ==

== ENCOUNTER → 2023-04-20 14:35 | Outpatient (BNVA) | payer MEDICARE, OTHER, SELFPAY | PROVIDERS: PCP Internal Medicine; Visit Provider Internal Medicine ==

== ENCOUNTER 2023-04-22 10:49 | Outpatient (AMB) | payer MEDICARE, OTHER, SELFPAY ==
--- NOTE | 2023-04-22 11:27 | AM.OFFVISNUR ---
Intake Intake Visit Reasons: Evenity Allergies bee pollen [Bee Stings] Allergy (Severe, Verified 04/20/23 14:40) ANAPHYLAXIS KAVEH Inhibitors Allergy (Unknown, Verified 04/20/23 14:40) cough adhesive [ADHESIVE] Allergy (Unknown, Verified 04/20/23 14:40) SORES Sulfa (Sulfonamide Antibiotics) Allergy (Unknown, Verified 04/20/23 14:40) HIVES/SWELLING, rash Office Meds romosozumab-aqqg 210 mg/2.34 mL(105 mg/1.17 mL x2)subcutaneous syringe Performing Provider: Brooks Watkins MD [place] [facility] [place] Administered by: Jessica Flores LPN on 04/22/23 11:27 Dose Route Admin Location Dispensed Lot Number Expiration Date [facility] Treating Plant Pumper 210 mg subcut Both upper arms 2.34 mL [id number] 08/14/24 AMGEN Coding Assessment & Plan Assessment & Plan Orders: Orders AMB Romosozumab Injection Patient Supplied Today M81.0 - Age-related osteoporosis without current pathological fracture
== END 2023-04-22 11:26 | disposition home or self-care (01) ==
PROVIDERS: PCP Internal Medicine; Visit Provider Internal Medicine Endocrinology, Diabetes & Metabolism
DX: M81.0 Age-related osteoporosis without current pathological fracture (principal)

== ENCOUNTER → 2023-04-22 10:49 | Outpatient (BNVA) | payer MEDICARE, OTHER, SELFPAY | PROVIDERS: PCP Internal Medicine; Visit Provider Internal Medicine Endocrinology, Diabetes & Metabolism | DX: M81.0 Age-related osteoporosis without current pathological fracture (principal) | CPT/HCPCS: 96372; J3111 ==

== ENCOUNTER → 2023-04-27 14:07 | Outpatient (BNVA) | payer MEDICARE, OTHER, SELFPAY | PROVIDERS: PCP Internal Medicine; Visit Provider Internal Medicine ==

== ENCOUNTER → 2023-05-04 12:59 | Outpatient (BNVA) | payer MEDICARE, OTHER, SELFPAY | PROVIDERS: PCP Internal Medicine; Visit Provider Internal Medicine ==

== ENCOUNTER → 2023-05-11 14:25 | Outpatient (BNVA) | payer MEDICARE, OTHER, SELFPAY | PROVIDERS: PCP Internal Medicine; Visit Provider Internal Medicine ==

== ENCOUNTER 2023-05-13 09:22 | Outpatient (AMB) | payer MEDICARE, OTHER, SELFPAY ==
[2023-05-13 09:29] VITALS: BP 160/84; PULSE 84
--- NOTE | 2023-05-13 09:29 | MHC.OFFVIS ---
Intake Vital Signs 05/13/23 09:29 Height 5 ft 4 in BP 160/84 H Blood Pressure Location Lt brachial Position Sitting Pulse 84 Pulse Source Pulse Oximeter Intake Visit Reasons: f/u osteoporosis-confirmed Intake Note: Patient present today for Osteoporosis follow up visit. Health Insurance Adjuster Required: No Accompanied by: Son Allergies bee pollen [Bee Stings] Allergy (Severe, Verified 05/13/23 09:35) ANAPHYLAXIS KAVEH Inhibitors Allergy (Unknown, Verified 05/13/23 09:35) cough adhesive [ADHESIVE] Allergy (Unknown, Verified 05/13/23 09:35) SORES Sulfa (Sulfonamide Antibiotics) Allergy (Unknown, Verified 05/13/23 09:35) HIVES/SWELLING, rash Medication List - Last Reconciled 05/13/23 by Brooks Watkins MD acetaminophen 500 mg PO Q6H PRN bisacodyl (Dulcolax (bisacodyl)) 10 mg [place] DAILY PRN celecoxib 100 mg PO BID cholecalciferol (vitamin D3) 25 mcg PO DAILY cranberry 400 mg PO DAILY diclofenac sodium 1% (Arthritis Pain (diclofenac)) 2 grams topical QID PRN docusate sodium 100 mg PO DAILY ferrous sulfate 325 mg PO DAILY furosemide 80 mg PO DAILY irbesartan 150 mg PO DAILY levothyroxine 125 mcg PO DAILY@0600 magnesium hydroxide (Milk of Magnesia) 5 mL PO DAILY PRN multivitamin 2 tabs PO DAILY omeprazole 20 mg PO DAILY ondansetron 4 mg PO Q8H PRN 30 days oxybutynin chloride ER 5 mg PO DAILY pantoprazole 40 mg PO DAILY@0630 potassium citrate ER 20 mEq PO BID pyridoxine (vitamin B6) 25 mg PO DAILY romosozumab-aqqg (Evenity) 210 mg (2.34 mL) subcut QMONTH Saccharomyces boulardii (Daily Probiotic (S. boulardii)) 250 mg PO DAILY simethicone (Gas-X) 1 strip PO BEDTIME PRN simvastatin 80 mg PO BEDTIME warfarin 4 mg See Protocol PO DAILY zolpidem 5 mg PO BEDTIME HPI HPI Comments History of Present Illness Details 72 YO F with PMHx gastric bypass is seen in consultation at the request of PCP for Osteoporosis. First diagnosed in 5-6 yrs ago. Saw aging room operator at [facility] [place] Received treatment in the past with Evelyn, 2019 from to 2019. Could not tolerate because of headaches . history of pathologic fracture of fenur 4 yrs ago fell out of bed or ONJ. Has servings of dietary calcium per day in the form of []. Takes Calcium supplement 1200 mg daily in divided doses. Takes 1000 IU of Vitamin D daily for 3 yrs . Takes PPI, no anticoagulant, noantiepileptic or no glucocorticoid medication. Not Does weight bearing exercise Fracture history: As above Height loss: 3 inches TURNTABLE OPERATOR history: regular menses menoapause in early 40 s Has history of Kidney stones: Has family history of Osteoporosis in mother and grandmother or hip fracture. UTD on dental cleanings and does not sees dentist every 6 months. No planned upcoming dental work or extractions. DXA dated 08/23/20 :FINDINGS: AP SPINE L1-L4: BMD 1.088 g/cm2, Z-score -0.3, T-score -0.8, normal. LEFT FOREARM RADIUS 33%: BMD 0.595 g/cm2, Z-score -1.5, T-score -3.2, osteoporosis. IDENTIFIED RISK FACTORS: Early menopause, height loss, osteoporosis, history of fracture (adult), secondary osteoporosis. HISTORY OF FRACTURE: Femur. MEDICATIONS: Calcium, vitamin D. MM/XR DEXA axial skeleton IMPRESSION: 1. DIAGNOSIS: Severe osteoporosis based on the lowest T-score value of -3.2 in the forearm radius 33% and history of a fracture of femur applying World Health Organization criteria.? Labs: Secondary workup was negative. Receiving evenity monthly. Received injections of Evenity for 1 yr [facility] Medical History Morbid obesity Post-menopausal Screening for hyperlipidemia Screening for colon cancer Screening for diabetes mellitus Hypertension Surgical History History of colonoscopy H/O basal cell carcinoma excision H/O gastric bypass History of right hip replacement History of left hip replacement History of tubal ligation History of section Family History Father CHF (congestive heart failure) Metastatic cancer to lung Mother Past heart attack Other Substance abuse Social History Housing: House Alcohol intake: current Alcohol intake frequency: a few times a week Alcohol type: wine Patient Tobacco Use Status: Former Tobacco user Tobacco use type: Cigarette Years Smoked: 22 e-Cigarette/Vaping Use: Never Used Second Hand Smoke Exposure: No Advance Directives Date on File: 07/20/22 service: No Current occupational status: retired 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 Secondary causes have been ruled out. Patient has tried and was intolerant of Tymlos. She had a prior history of femur fracture The plan is to continue Evenity for full yrs course. Would transition to Prolia next month. Would not use alendronate because patient had significant GERD that resulted in hospitalization in the past. Will repeat DEXA bone density of the hip and spine Orders: Orders XR DEXA axial skeleton Today M81.0 - Age-related osteoporosis without current pathological fracture Coding Level of Care Code Est Pt Level 3 (27678) Diagnoses Osteoporosis M81.0
== END 2023-05-13 10:04 | disposition home or self-care (01) ==
PROVIDERS: PCP Internal Medicine; Visit Provider Internal Medicine Endocrinology, Diabetes & Metabolism
DX: M81.0 Age-related osteoporosis without current pathological fracture (principal)
CPT/HCPCS: 99213

== ENCOUNTER → 2023-05-13 09:22 | Outpatient (BNVA) | payer MEDICARE, OTHER, SELFPAY | PROVIDERS: PCP Internal Medicine; Visit Provider Internal Medicine Endocrinology, Diabetes & Metabolism | DX: M81.0 Age-related osteoporosis without current pathological fracture (principal) | CPT/HCPCS: 99212 ==

== ENCOUNTER → 2023-05-18 10:38 | Outpatient (BNVA) | payer MEDICARE, OTHER, SELFPAY | PROVIDERS: PCP Internal Medicine; Visit Provider Internal Medicine ==

== ENCOUNTER → 2023-05-25 12:02 | Outpatient (BNVA) | payer MEDICARE, OTHER, SELFPAY | PROVIDERS: PCP Internal Medicine; Visit Provider Internal Medicine ==

== ENCOUNTER 2023-05-27 10:55 | Outpatient (AMB) | payer MEDICARE, OTHER, SELFPAY ==
--- NOTE | 2023-05-27 11:26 | AM.OFFVISNUR ---
Intake Intake Visit Reasons: Evenity Allergies bee pollen [Bee Stings] Allergy (Severe, Verified 05/25/23 12:04) ANAPHYLAXIS KAVEH Inhibitors Allergy (Unknown, Verified 05/25/23 12:04) cough adhesive [ADHESIVE] Allergy (Unknown, Verified 05/25/23 12:04) SORES Sulfa (Sulfonamide Antibiotics) Allergy (Unknown, Verified 05/25/23 12:04) HIVES/SWELLING, rash Office Meds romosozumab-aqqg 210 mg/2.34 mL(105 mg/1.17 mL x2)subcutaneous syringe Performing Provider: Brooks Watkins MD Performing Location: [facility] [place] Administered by: Jessica Flores LPN on 05/27/23 11:26 Dose Route Admin Location Dispensed Lot Number Expiration Date [facility] Line Rider 210 mg subcut Both upper arms 2.34 mL [id number] 08/14/25 AMGEN Coding Assessment & Plan Assessment & Plan Orders: Orders AMB Romosozumab Injection Patient Supplied Today M81.0 - Age-related osteoporosis without current pathological fracture Medications: New romosozumab-aqqg 210 mg (2.34 mL) subcut ONCE 2.34 mL 0RF M81.0 - Age-related osteoporosis without current pathological fracture
== END 2023-05-27 11:23 | disposition home or self-care (01) ==
PROVIDERS: PCP Internal Medicine; Visit Provider Internal Medicine Endocrinology, Diabetes & Metabolism
DX: M81.0 Age-related osteoporosis without current pathological fracture (principal)

== ENCOUNTER → 2023-05-27 10:55 | Outpatient (BNVA) | payer MEDICARE, OTHER, SELFPAY | PROVIDERS: PCP Internal Medicine; Visit Provider Internal Medicine Endocrinology, Diabetes & Metabolism | DX: M81.0 Age-related osteoporosis without current pathological fracture (principal) | CPT/HCPCS: 96372; J3111 ==

== ENCOUNTER → 2023-06-01 15:51 | Outpatient (BNVA) | payer MEDICARE, OTHER, SELFPAY | PROVIDERS: PCP Internal Medicine; Visit Provider Internal Medicine ==

== ENCOUNTER 2023-06-03 10:43 | Outpatient (REF) | payer MEDICARE, OTHER, SELFPAY ==
--- NOTE | ~2023-06-03 | MM_ITS ---
EXAMINATION: BONE DENSITOMETRY CLINICAL INDICATION: Age-related osteoporosis without current pathological fracture. COMPARISON: Baseline BD dated 08/23/2020. TECHNIQUE: Using a [employer] DXA System (software version: 13.1) manufactured by [employer], dual-energy x-ray absorptiometry was performed of the lumbar spine and left forearm radius 33%. The patient has had bilateral hip replacements. The images are of good technical quality. Summary results are attached. FINDINGS: AP SPINE L1-L4: Current: BMD 1.164 g/cm2, Z-score 0.4, T-score -0.1, normal, 7.0% increase from baseline (<5% change is not significant). Baseline: BMD 1.088 g/cm2. LEFT FOREARM RADIUS 33%: Current: BMD 0.650 g/cm2, Z-score -0.6, T-score -2.6, osteoporosis, 9.2% increase from baseline (<5% change is not significant). Baseline: BMD 0.595 g/cm2. IDENTIFIED RISK FACTORS: History of adult fracture. Osteoporosis. Height loss. Secondary osteoporosis (hyperthyroidism, part of stomach removed, early menopause). Thiazide. HISTORY OF FRACTURE: Femur/hip. Other. MEDICATIONS: Calcium supplement and/or multivitamin. Vitamin D. ERT/SERMS MM/XR DEXA axial skeleton IMPRESSION: 1. DIAGNOSIS: Severe osteoporosis based on the lowest T-score value of -2.6 in the left forearm radius 33% and the prior history of fracture applying World Health Organization criteria. 2. 10-YEAR FRACTURE RISK PREDICTION, FRAX: According to the guidelines, FRAX calculation should only be performed on patients in the osteopenia bone density category.?Therefore, FRAX was not performed on this patient.? 3. Treatment Recommendations: NOF guidelines recommend consideration for treatment in postmenopausal women and men age 50 and older presenting with the following: -A hip or vertebral (clinical or morphometric) fracture. -T-score less than or equal to -2.5 at the femoral neck or spine after appropriate evaluation to exclude secondary causes. -Low bone mass at the hip or spine and a 10-year fracture probability by FRAX of greater than or equal to 3% for hip fracture or greater than or equal to 20% for major osteoporotic fracture based on the [place] adapted WHO algorithm. 4. Other Recommendations: All treatment decisions require clinical judgment and consideration of individual patient factors, including patient preferences, comorbidities, previous drug use, risk factors not captured in the FRAX model (e.g. frailty, falls, vitamin D deficiency, increased bone turnover, interval significant decline in bone density) and possible under or overestimation of fracture risk by FRAX. Additional medical evaluation for secondary cause of low bone mineral density may be appropriate. FUTURE SCAN RECOMMENDATION: People with diagnosed cases of osteoporosis or at high risk for fracture should have regular bone mineral density tests. For patients eligible for Medicare, routine testing is allowed once every 2 years. The testing frequency can be increased to one year for patients who have rapidly progressing disease, those who are receiving or discontinuing medical therapy to restore bone mass, or have additional risk factors.
== END 2023-06-03 10:44 | disposition home or self-care (01) ==
LOC: HO.MAMMO 10:43
PROVIDERS: PCP Internal Medicine; Visit Provider Internal Medicine Endocrinology, Diabetes & Metabolism
DX: Z13.820 Encounter for screening for osteoporosis (principal); M81.0 Age-related osteoporosis without current pathological fracture; Z78.0 Asymptomatic menopausal state
CPT/HCPCS: 77080

== ENCOUNTER → 2023-06-08 11:09 | Outpatient (BNVA) | payer MEDICARE, OTHER, SELFPAY | PROVIDERS: PCP Internal Medicine; Visit Provider Internal Medicine ==

== ENCOUNTER → 2023-06-15 13:28 | Outpatient (BNVA) | payer MEDICARE, OTHER, SELFPAY | PROVIDERS: PCP Internal Medicine; Visit Provider Internal Medicine ==

== ENCOUNTER 2023-06-16 10:57 | Outpatient (REF) | payer MEDICARE, OTHER, SELFPAY ==
[2023-06-16 12:45] LABS: Albumin Level 4.1 g/dL (3.5-5.0); Anion Gap 14 (12-20); Blood Urea Nitrogen 18 mg/dL (9-16); Calcium 9.8 mg/dL (8.4-10.2); Carbon Dioxide 29 mmol/L (22-29); Chloride 104 mmol/L (96-108); Estimated Glomerular Filt Rate > 60; Glucose Random 80 mg/dL (60-115); Potassium 4.9 mmol/L (3.3-5.1); Sodium 142 mmol/L (135-145)
== END 2023-06-16 10:58 | disposition home or self-care (01) ==
LOC: HO.LAB 10:57
PROVIDERS: PCP Internal Medicine; Visit Provider Internal Medicine Endocrinology, Diabetes & Metabolism
DX: M81.0 Age-related osteoporosis without current pathological fracture (principal)
CPT/HCPCS: 36415; 80048; 82040

== ENCOUNTER → 2023-06-29 10:54 | Outpatient (BNVA) | payer MEDICARE, OTHER, SELFPAY | PROVIDERS: PCP Internal Medicine; Visit Provider Internal Medicine ==

== ENCOUNTER 2023-07-01 12:57 | Outpatient (AMB) | payer MEDICARE, OTHER, SELFPAY ==
--- NOTE | 2023-07-01 13:13 | AM.OFFVISNUR ---
Intake Intake Visit Reasons: Evenity Allergies bee pollen [Bee Stings] Allergy (Severe, Verified 06/29/23 11:54) ANAPHYLAXIS KAVEH Inhibitors Allergy (Unknown, Verified 06/29/23 11:54) cough adhesive [ADHESIVE] Allergy (Unknown, Verified 06/29/23 11:54) SORES Sulfa (Sulfonamide Antibiotics) Allergy (Unknown, Verified 06/29/23 11:54) HIVES/SWELLING, rash Office Meds romosozumab-aqqg 210 mg/2.34 mL(105 mg/1.17 mL x2)subcutaneous syringe Performing Provider: Brooks Watkins MD Performing Location[place] [facility] [place] Administered by: Jessica Flores LPN on 07/01/23 13:14 Dose Route Admin Location Dispensed Lot Number Expiration Date [facility] Tar And Ammonia Pump Operator 210 mg subcut Bilateral Upper Arms 2.34 mL [id number] 08/14/25 AMGEN Coding Assessment & Plan Assessment & Plan Orders: Orders AMB Romosozumab Injection Patient Supplied Today M81.0 - Age-related osteoporosis without current pathological fracture Medications: New romosozumab-aqqg 210 mg (2.34 mL) subcut ONCE 2.34 mL 0RF M81.0 - Age-related osteoporosis without current pathological fracture
== END 2023-07-01 13:13 | disposition home or self-care (01) ==
PROVIDERS: PCP Internal Medicine; Visit Provider Internal Medicine Endocrinology, Diabetes & Metabolism
DX: M81.0 Age-related osteoporosis without current pathological fracture (principal)

== ENCOUNTER → 2023-07-01 12:57 | Outpatient (BNVA) | payer MEDICARE, OTHER, SELFPAY | PROVIDERS: PCP Internal Medicine; Visit Provider Internal Medicine Endocrinology, Diabetes & Metabolism | DX: M81.0 Age-related osteoporosis without current pathological fracture (principal) | CPT/HCPCS: 96372; J3111 ==

== ENCOUNTER 2023-07-06 11:05 | Outpatient (REF) | payer MEDICARE, OTHER, SELFPAY ==
[2023-07-06 12:24] LABS: Calcium 9.4 mg/dL (8.4-10.2)
== END 2023-07-06 11:06 | disposition home or self-care (01) ==
LOC: HO.LAB 11:05
PROVIDERS: PCP Internal Medicine; Visit Provider Internal Medicine Endocrinology, Diabetes & Metabolism
DX: M81.0 Age-related osteoporosis without current pathological fracture (principal)
CPT/HCPCS: 36415; 82310

== ENCOUNTER 2023-07-08 10:25 | Outpatient (AMB) | payer MEDICARE, OTHER, SELFPAY ==
[2023-07-08 10:34] VITALS: BP 182/80; PULSE 82; BMI 49.0
--- NOTE | 2023-07-08 10:34 | MHC.OFFVIS ---
Vital Signs 07/08/23 10:34 Height 5 ft 4 in Weight 285 lb 4.45 oz BMI 49.0 BP 182/80 H Blood Pressure Location Lt brachial Position Sitting Pulse 82 Pulse Source Pulse Oximeter Intake Visit Reasons: f/u osteoporsis-confirmed Intake Note: Patient present today for Osteoporosis follow up visit. Supervisor Drapery Hanging Required: No Accompanied by: Self / Same As Patient Allergies bee pollen [Bee Stings] Allergy (Severe, Verified 07/08/23 10:40) ANAPHYLAXIS KAVEH Inhibitors Allergy (Unknown, Verified 07/08/23 10:40) cough adhesive [ADHESIVE] Allergy (Unknown, Verified 07/08/23 10:40) SORES Sulfa (Sulfonamide Antibiotics) Allergy (Unknown, Verified 07/08/23 10:40) HIVES/SWELLING, rash Medication List - Last Reconciled 07/08/23 by Brooks Watkins MD acetaminophen 500 mg PO Q6H PRN bisacodyl (Dulcolax (bisacodyl)) 10 mg [place] DAILY PRN celecoxib 100 mg PO BID cholecalciferol (vitamin D3) 25 mcg PO DAILY cranberry 400 mg PO DAILY denosumab (Prolia) 60 mg subcut [id number] diclofenac sodium 1% (Arthritis Pain (diclofenac)) 2 grams topical QID PRN docusate sodium 100 mg PO DAILY ferrous sulfate 325 mg PO DAILY furosemide 80 mg PO DAILY irbesartan 150 mg PO DAILY levothyroxine 125 mcg PO DAILY@0600 magnesium hydroxide (Milk of Magnesia) 5 mL PO DAILY PRN multivitamin 2 tabs PO DAILY omeprazole 20 mg PO DAILY ondansetron 4 mg PO Q8H PRN 30 days oxybutynin chloride ER 5 mg PO DAILY pantoprazole 40 mg PO DAILY@0630 potassium citrate ER 20 mEq PO BID pyridoxine (vitamin B6) 25 mg PO DAILY Saccharomyces boulardii (Daily Probiotic (S. boulardii)) 250 mg PO DAILY simethicone (Gas-X) 1 strip PO BEDTIME PRN simvastatin 80 mg PO BEDTIME warfarin 4 mg See Protocol PO DAILY zolpidem 5 mg PO BEDTIME HPI Comments Details: 72 YO F with PMHx gastric bypass is seen in consultation at the request of PCP for Osteoporosis. First diagnosed in 5-6 yrs ago. Saw it instructor at [facility] [place] Received treatment in the past with Evelyn, 2019 from to 2019. Could not tolerate because of headaches . history of pathologic fracture of fenur 4 yrs ago fell out of bed or ONJ. Has servings of dietary calcium per day in the form of []. Takes Calcium supplement 1200 mg daily in divided doses. Takes 1000 IU of Vitamin D daily for 3 yrs . Takes PPI, no anticoagulant, noantiepileptic or no glucocorticoid medication. 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 UTD on dental cleanings and does not sees dentist every 6 months. No planned upcoming dental work or extractions. DXA dated 08/23/20 :FINDINGS: AP SPINE L1-L4: BMD 1.088 g/cm2, Z-score -0.3, T-score -0.8, normal. LEFT FOREARM RADIUS 33%: BMD 0.595 g/cm2, Z-score -1.5, T-score -3.2, osteoporosis. IDENTIFIED RISK FACTORS: Early menopause, height loss, osteoporosis, history of fracture (adult), secondary osteoporosis. HISTORY OF FRACTURE: Femur. MEDICATIONS: Calcium, vitamin D. MM/XR DEXA axial skeleton IMPRESSION: 1. DIAGNOSIS: Severe osteoporosis based on the lowest T-score value of -3.2 in the forearm radius 33% and history of a fracture of femur applying World Health Organization criteria.? Labs: Secondary workup was negative. Receiving evenity monthly. Received injections of Evenity and needs 1 more mo. [facility] Medical History Morbid obesity Post-menopausal Screening for hyperlipidemia Screening for colon cancer Screening for diabetes mellitus Hypertension Surgical History History of colonoscopy H/O basal cell carcinoma excision H/O gastric bypass History of right hip replacement History of left hip replacement History of tubal ligation History of section Family History Father CHF (congestive heart failure) Metastatic cancer to lung Mother Past heart attack Other Substance abuse Social History Housing: House Alcohol intake: current Alcohol intake frequency: a few times a week Alcohol type: wine Patient Tobacco Use Status: Former Tobacco user Tobacco use type: Cigarette Years Smoked: 22 e-Cigarette/Vaping Use: Never Used Second Hand Smoke Exposure: No Advance Directives Date on File: 07/20/22 service: No 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 Secondary causes have been ruled out. Patient has tried and was intolerant of Tymlos. She had a prior history of femur . fracture. She received a full year of Evenity and transition to Prolia The plan is to continue Evenity for 1 more mo. then transition to Prolia Coding Level of Care Code Est Pt Level 3 (22630) Diagnoses Osteoporosis M81.0
== END 2023-07-08 11:08 | disposition home or self-care (01) ==
PROVIDERS: PCP Internal Medicine; Visit Provider Internal Medicine Endocrinology, Diabetes & Metabolism
DX: M81.0 Age-related osteoporosis without current pathological fracture (principal)
CPT/HCPCS: 99213

== ENCOUNTER → 2023-07-08 10:25 | Outpatient (BNVA) | payer MEDICARE, OTHER, SELFPAY | PROVIDERS: PCP Internal Medicine; Visit Provider Internal Medicine Endocrinology, Diabetes & Metabolism | DX: M81.0 Age-related osteoporosis without current pathological fracture (principal) | CPT/HCPCS: 99212 ==

== ENCOUNTER → 2023-07-13 12:14 | Outpatient (BNVA) | payer MEDICARE, OTHER, SELFPAY | PROVIDERS: PCP Internal Medicine; Visit Provider Internal Medicine ==

== ENCOUNTER → 2023-07-27 09:53 | Outpatient (BNVA) | payer MEDICARE, OTHER, SELFPAY | PROVIDERS: PCP Internal Medicine; Visit Provider Internal Medicine ==

== ENCOUNTER → 2023-08-03 12:03 | Outpatient (BNVA) | payer MEDICARE, OTHER, SELFPAY | PROVIDERS: PCP Internal Medicine; Visit Provider Internal Medicine ==

== ENCOUNTER → 2023-08-10 14:53 | Outpatient (BNVA) | payer MEDICARE, OTHER, SELFPAY | PROVIDERS: PCP Internal Medicine; Visit Provider Internal Medicine ==

== ENCOUNTER 2023-08-12 10:40 | Outpatient (AMB) | payer MEDICARE, OTHER, SELFPAY ==
--- NOTE | 2023-08-12 10:59 | AM.OFFVISNUR ---
Intake Intake Visit Reasons: Evenity Allergies bee pollen [Bee Stings] Allergy (Severe, Verified 08/03/23 14:44) ANAPHYLAXIS KAVEH Inhibitors Allergy (Unknown, Verified 08/03/23 14:44) cough adhesive [ADHESIVE] Allergy (Unknown, Verified 08/03/23 14:44) SORES Sulfa (Sulfonamide Antibiotics) Allergy (Unknown, Verified 08/03/23 14:44) HIVES/SWELLING, rash Office Meds romosozumab-aqqg 210 mg/2.34 mL(105 mg/1.17 mL x2)subcutaneous syringe Performing Provider: Brooks Watkins MD Performing Location: [facility] [place]ocr[place]ology Administered by: Arianna Suárez RN on 08/12/23 10:59 Dose Route Admin Location Dispensed Lot Number Expiration Date [facility] Bargeman 210 mg subcut bilateral upper arms 2.34 mL [id number] 08/14/25 74946-080-13 AMGEN Comments: Consent form signed. Pt has completed 12 injections of evenity and will now transition to prolia. Pt tolerated injection well. Pt denies any previous reactions. Coding Assessment & Plan Assessment & Plan Orders: Orders AMB Romosozumab Injection Patient Supplied Today M81.0 - Age-related osteoporosis without current pathological fracture Medications: New romosozumab-aqqg 210 mg (2.34 mL) subcut ONCE 2.34 mL 0RF M81.0 - Age-related osteoporosis without current pathological fracture
== END 2023-08-12 10:58 | disposition home or self-care (01) ==
PROVIDERS: PCP Internal Medicine; Visit Provider Internal Medicine Endocrinology, Diabetes & Metabolism
DX: M81.0 Age-related osteoporosis without current pathological fracture (principal)

== ENCOUNTER → 2023-08-12 10:40 | Outpatient (BNVA) | payer MEDICARE, OTHER, SELFPAY | PROVIDERS: PCP Internal Medicine; Visit Provider Internal Medicine Endocrinology, Diabetes & Metabolism | DX: M81.0 Age-related osteoporosis without current pathological fracture (principal) | CPT/HCPCS: 96372; J3111 ==

== ENCOUNTER → 2023-08-24 10:27 | Outpatient (BNVA) | payer MEDICARE, OTHER, SELFPAY | PROVIDERS: PCP Internal Medicine; Visit Provider Internal Medicine ==

== ENCOUNTER → 2023-09-07 11:06 | Outpatient (BNVA) | payer MEDICARE, OTHER, SELFPAY | PROVIDERS: PCP Internal Medicine; Visit Provider Internal Medicine ==

== ENCOUNTER 2023-09-09 10:39 | Outpatient (AMB) | payer MEDICARE, OTHER, SELFPAY ==
--- NOTE | 2023-09-09 10:59 | AM.OFFVISNUR ---
Intake Visit Reasons: Prolia #1 Allergies bee pollen [Bee Stings] Allergy (Severe, Verified 09/07/23 11:24) ANAPHYLAXIS KAVEH Inhibitors Allergy (Unknown, Verified 09/07/23 11:24) cough adhesive [ADHESIVE] Allergy (Unknown, Verified 09/07/23 11:24) SORES Sulfa (Sulfonamide Antibiotics) Allergy (Unknown, Verified 09/07/23 11:24) HIVES/SWELLING, rash Office Meds Prolia 60 mg/mL subcutaneous syringe Performing Provider: Brooks Watkins MD Performing Location: [facility] [place] Administered by: Jessica Flores LPN on 09/09/23 11:00 Dose Route Admin Location Dispensed Lot Number Expiration Date [facility] Precision Assembler Bench 60 mg subcut Left upper arm 1 mL [id number] 08/14/25 AMGEN Assessment & Plan Assessment & Plan Orders: Orders AMB Denosumab Injection Patient Supplied Today M81.0 - Age-related osteoporosis without current pathological fracture Medications: New Prolia (denosumab) 60 mg subcut ONCE 1 mL 0RF NS M81.0 - Age-related osteoporosis without current pathological fracture
== END 2023-09-09 10:58 | disposition home or self-care (01) ==
PROVIDERS: PCP Internal Medicine
DX: M81.0 Age-related osteoporosis without current pathological fracture (principal)

== ENCOUNTER → 2023-09-09 10:39 | Outpatient (BNVA) | payer MEDICARE, OTHER, SELFPAY | PROVIDERS: PCP Internal Medicine | DX: M81.0 Age-related osteoporosis without current pathological fracture (principal) | CPT/HCPCS: 96372; J0897 ==

== ENCOUNTER → 2023-09-21 11:35 | Outpatient (BNVA) | payer MEDICARE, OTHER, SELFPAY | PROVIDERS: PCP Internal Medicine; Visit Provider Internal Medicine ==

== ENCOUNTER → 2023-10-05 13:50 | Outpatient (BNVA) | payer MEDICARE, OTHER, SELFPAY | PROVIDERS: PCP Internal Medicine; Visit Provider Internal Medicine ==

== ENCOUNTER → 2023-10-19 12:43 | Outpatient (BNVA) | payer MEDICARE, OTHER, SELFPAY | PROVIDERS: PCP Internal Medicine; Visit Provider Internal Medicine ==

== ENCOUNTER → 2023-11-02 10:29 | Outpatient (BNVA) | payer MEDICARE, OTHER, SELFPAY | PROVIDERS: PCP Internal Medicine; Visit Provider Internal Medicine ==

== ENCOUNTER → 2023-11-16 09:52 | Outpatient (BNVA) | payer MEDICARE, OTHER, SELFPAY | PROVIDERS: PCP Internal Medicine; Visit Provider Internal Medicine ==

== ENCOUNTER → 2023-11-23 12:10 | Outpatient (BNVA) | payer MEDICARE, OTHER, SELFPAY | PROVIDERS: PCP Internal Medicine; Visit Provider Internal Medicine ==

== ENCOUNTER → 2023-12-07 11:08 | Outpatient (BNVA) | payer MEDICARE, OTHER, SELFPAY | PROVIDERS: PCP Internal Medicine; Visit Provider Internal Medicine ==

== ENCOUNTER → 2023-12-21 12:50 | Outpatient (BNVA) | payer MEDICARE, OTHER, SELFPAY | PROVIDERS: PCP Internal Medicine; Visit Provider Internal Medicine ==

== ENCOUNTER → 2024-01-04 11:28 | Outpatient (BNVA) | payer MEDICARE, OTHER, SELFPAY | PROVIDERS: PCP Internal Medicine; Visit Provider Internal Medicine ==

== ENCOUNTER 2024-01-06 11:00 | Outpatient (AMB) | payer MEDICARE, OTHER, SELFPAY ==
--- NOTE | 2024-01-06 11:02 | MHC.OFFVIS ---
Vital Signs 01/06/24 11:08 BMI Reason not done Patient refused/unable BP 148/82 H Blood Pressure Location Lt brachial Position Sitting Pulse 71 Pulse Source Pulse Oximeter Intake Visit Reasons: f/u osteoporosis confirmed Intake Note: Patient present today for Osteoporosis follow up visit. Bilingual Medical Assistant Required: No Accompanied by: Daughter Allergies bee pollen [Bee Stings] Allergy (Severe, Verified 01/06/24 11:09) ANAPHYLAXIS KAVEH Inhibitors Allergy (Unknown, Verified 01/06/24 11:09) cough adhesive [ADHESIVE] Allergy (Unknown, Verified 01/06/24 11:09) SORES Sulfa (Sulfonamide Antibiotics) Allergy (Unknown, Verified 01/06/24 11:09) HIVES/SWELLING, rash Medication List - Last Reconciled 01/06/24 by Brooks Watkins MD acetaminophen 500 mg PO Q6H PRN bisacodyl (Dulcolax (bisacodyl)) 10 mg [place] DAILY PRN celecoxib 100 mg PO BID cholecalciferol (vitamin D3) 25 mcg PO DAILY cranberry 400 mg PO DAILY denosumab (Prolia) 60 mg subcut [id number] diclofenac sodium 1% (Arthritis Pain (diclofenac)) 2 grams topical QID PRN docusate sodium 100 mg PO DAILY ferrous sulfate 325 mg PO DAILY furosemide 80 mg PO DAILY irbesartan 150 mg PO DAILY levothyroxine 125 mcg PO DAILY@0600 magnesium hydroxide (Milk of Magnesia) 5 mL PO DAILY PRN multivitamin 2 tabs PO DAILY omeprazole 20 mg PO DAILY ondansetron 4 mg PO Q8H PRN 30 days oxybutynin chloride ER 5 mg PO DAILY pantoprazole 40 mg PO DAILY@0630 potassium citrate ER 20 mEq PO BID pyridoxine (vitamin B6) 25 mg PO DAILY Saccharomyces boulardii (Daily Probiotic (S. boulardii)) 250 mg PO DAILY simethicone (Gas-X) 1 strip PO BEDTIME PRN simvastatin 80 mg PO BEDTIME warfarin 4 mg See Protocol PO DAILY zolpidem 5 mg PO BEDTIME HPI Comments Details: 73 YO F with PMHx gastric bypass is seen in consultation at the request of PCP for Osteoporosis. First diagnosed in 5-6 yrs ago. Saw automation controls specialist at [facility] Received treatment in the past with Evelyn, 2019 from to 2019. Could not tolerate because of headaches . history of pathologic fracture of fenur 4 yrs ago fell out of bed or ONJ. Has servings of dietary calcium per day in the form of []. Takes Calcium supplement 1200 mg daily in divided doses. Takes 1000 IU of Vitamin D daily for 3 yrs . Takes PPI, no anticoagulant, noantiepileptic or no glucocorticoid medication. 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 UTD on dental cleanings and does not sees dentist every 6 months. No planned upcoming dental work or extractions. DXA dated 08/23/20 :FINDINGS: AP SPINE L1-L4: BMD 1.088 g/cm2, Z-score -0.3, T-score -0.8, normal. LEFT FOREARM RADIUS 33%: BMD 0.595 g/cm2, Z-score -1.5, T-score -3.2, osteoporosis. IDENTIFIED RISK FACTORS: Early menopause, height loss, osteoporosis, history of fracture (adult), secondary osteoporosis. HISTORY OF FRACTURE: Femur. MEDICATIONS: Calcium, vitamin D. MM/XR DEXA axial skeleton IMPRESSION: 1. DIAGNOSIS: Severe osteoporosis based on the lowest T-score value of -3.2 in the forearm radius 33% and history of a fracture of femur applying World Health Organization criteria.? Labs: Secondary workup was negative. Receiving evenity monthly. Received injections of Evenity and then transition to Prolia. Recent DEXA showed improvements in the bone density with continued osteoporosis. Patient is due for Prolia injection in 02/2024 [facility] Medical History Morbid obesity Post-menopausal Screening for hyperlipidemia Screening for colon cancer Screening for diabetes mellitus Hypertension Surgical History History of colonoscopy H/O basal cell carcinoma excision H/O gastric bypass History of right hip replacement History of left hip replacement History of tubal ligation History of section Family History Father CHF (congestive heart failure) Metastatic cancer to lung Mother Past heart attack Other Substance abuse Social History Housing: House Alcohol intake: current Alcohol intake frequency: a few times a week Alcohol type: wine Patient Tobacco Use Status: Former Tobacco user Tobacco use type: Cigarette Years Smoked: 22 e-Cigarette/Vaping Use: Never Used Second Hand Smoke Exposure: No Advance Directives Date on File: 07/20/22 service: No Current occupational status: retired 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 Secondary causes have been ruled out. Patient has tried and was intolerant of Tymlos. She had a prior history of femur . fracture. She received a full year of Evenity and transitioned to Prolia The plan is to continue Prolia for minimum full 3 years course. Coding Level of Care Code Est Pt Level 3 (07161) Diagnoses Osteoporosis M81.0
[2024-01-06 11:08] VITALS: BP 148/82; PULSE 71
== END 2024-01-06 11:24 | disposition home or self-care (01) ==
PROVIDERS: PCP Internal Medicine; Visit Provider Internal Medicine Endocrinology, Diabetes & Metabolism
DX: M81.0 Age-related osteoporosis without current pathological fracture (principal)
CPT/HCPCS: 99213

== ENCOUNTER → 2024-01-06 11:00 | Outpatient (BNVA) | payer MEDICARE, OTHER, SELFPAY | PROVIDERS: PCP Internal Medicine; Visit Provider Internal Medicine Endocrinology, Diabetes & Metabolism | DX: M81.0 Age-related osteoporosis without current pathological fracture (principal) | CPT/HCPCS: 99212 ==

== ENCOUNTER 2024-01-25 10:28 | Outpatient (AMB) | payer MEDICARE, OTHER, SELFPAY ==
[2024-01-25 10:31] VITALS: BP 138/92; PULSE 86; O2SAT 95; BMI 50.6
--- NOTE | 2024-01-25 10:31 | A.OFFVIS_ITS ---
Intake Vital Signs 01/25/24 10:31 Height 5 ft 4 in Weight 294 lb 8.601 oz BMI 50.6 BP 138/92 H Blood Pressure Location Lt brachial Position Sitting Pulse 86 Pulse Source Pulse Oximeter Pulse Oximetry (%) 95 Oxygen Delivery Method Room Air Intake Visit Reasons: AWV Allergies bee pollen [Bee Stings] Allergy (Severe, Verified 01/25/24 10:31) ANAPHYLAXIS KAVEH Inhibitors Allergy (Unknown, Verified 01/25/24 10:31) cough adhesive [ADHESIVE] Allergy (Unknown, Verified 01/25/24 10:31) SORES Sulfa (Sulfonamide Antibiotics) Allergy (Unknown, Verified 01/25/24 10:31) HIVES/SWELLING, rash Medication List - Last Reconciled 01/26/24 by Jeffery Eddy MD acetaminophen 500 mg PO Q6H PRN bisacodyl (Dulcolax (bisacodyl)) 10 mg [place] DAILY PRN celecoxib 100 mg PO BID cholecalciferol (vitamin D3) 25 mcg PO DAILY cranberry 400 mg PO DAILY denosumab (Prolia) 60 mg subcut [id number] diclofenac sodium 1% (Arthritis Pain (diclofenac)) 2 grams topical QID PRN docusate sodium 100 mg PO DAILY ferrous sulfate 325 mg PO DAILY furosemide 80 mg PO DAILY irbesartan 150 mg PO DAILY levothyroxine 125 mcg PO DAILY@0600 magnesium hydroxide (Milk of Magnesia) 5 mL PO DAILY PRN multivitamin 2 tabs PO DAILY omeprazole 20 mg PO DAILY ondansetron 4 mg PO Q8H PRN 30 days oxybutynin chloride ER 5 mg PO DAILY pantoprazole 40 mg PO DAILY@0630 potassium citrate ER 20 mEq PO BID pyridoxine (vitamin B6) 25 mg PO DAILY Saccharomyces boulardii (Daily Probiotic (S. boulardii)) 250 mg PO DAILY simethicone (Gas-X) 1 strip PO BEDTIME PRN simvastatin 80 mg PO BEDTIME warfarin 4 mg See Protocol PO DAILY zolpidem 5 mg PO BEDTIME HPI AWV HPI Details hypertension hypothyroidism and hyperlipidemia on rx PFSH Medical History Morbid obesity Post-menopausal Screening for hyperlipidemia Screening for colon cancer Screening for diabetes mellitus Hypertension Surgical History History of colonoscopy H/O basal cell carcinoma excision H/O gastric bypass History of right hip replacement History of left hip replacement History of tubal ligation History of section Family History Father CHF (congestive heart failure) Metastatic cancer to lung Mother Past heart attack Other Substance abuse Social History Housing: House Alcohol intake: current Alcohol intake frequency: a few times a week Alcohol type: wine Patient Tobacco Use Status: Former Tobacco user Tobacco use type: Cigarette Years Smoked: 22 e-Cigarette/Vaping Use: Never Used Second Hand Smoke Exposure: No Advance Directives Date on File: 07/20/22 service: No 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 occupational 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: retired 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 Current occupational exposures/hazards: No Cognitive needs: Yes (cane) Hearing needs: No Vision needs: Yes (glasses) Questionnaire Medicare Wellness Checkup What [age] What gender do you identify with?: female During the past 4 weeks, how much have you been bothered by emotional problems such as feeling anxious, depressed, irritable, sad or downhearted, and blue?: slightly During the past 4 weeks, has your physical & emotional health limited your social activities with family, friends, neighbors, or groups?: not at all During the past 4 weeks, how much bodily pain have you generally had?: moderate pain During the past 4 weeks, was someone available to help you if you needed & wanted help?: yes, some During the past 4 weeks, what was the hardest physical activity you could do for at least 2 minutes?: light Can you get to places out of walking distance without help? (For eg., can you travel alone on buses, taxis or drive your car?): No Can you go shopping for groceries or clothes without someone's help?: No Can you prepare your own meals?: Yes Can you do your housework without help?: Yes Because of any health problems, do you need the help of another person with your personal care needs such as eating, bathing, dressing or getting around the house?: No Can you handle your own money without help?: Yes During the past 4 weeks, how would you rate your health in general?: good During the past 4 weeks how have things been going for you?: good & bad parts about equal Are you having difficulties driving your car?: not applicable, I don't use a car Do you always fasten your seat belt when you are in a car?: yes, usually During past 4 weeks, have you been bothered by the following: never: Falling or dizzy when standing up, Teeth or denture problems? and Problems using the telephone?, seldom: Trouble eating well?, sometimes: Tiredness or fatigue? and always: Sexual problems? Have you fallen 2 or more times in the past year?: No Are you afraid of falling?: Yes Are you a smoker?: no During the past 4 weeks, how many drinks of wine, beer, or other alcoholic beverages did you have?: 10 or more per week Do you exercise for about 20 minutes 3 or more times a week?: no, I usually do not exercise this much Have you been given information to help with the following?: yes: Hazards in your house that might hurt you? and yes: Keeping track of your medications? How often do you have trouble taking medicines the way you have been told to ta ke them?: I seldom take medications as prescribed How confident are you that you can control & manage most of your health problems?: somewhat confident What is your race?: White Mini Mental State Exam (MMSE) Orientation What is the (year) (season) (date) (day) (month)?: year, season, date, day and month Where are we (state) (county) (town or city) (hospital) (floor)?: state, county, town or city, hospital/clinic and floor Score Score: 10 Activity of Daily Living Bathing - sponge bath, tub bath or shower: receives no assistance (gets in/out by self, if usual bathing means Dressing - getting clothes from closets & drawers, including inner/outer garments & fasteners.: gets clothes & gets completely dressed without help Toileting - going to the 'toilet room' for urine/bowel elimination & cleaning self/arranging clothes: goes to toilet room, cleans self, arranges clothes without help Transfer: moves in & out of bed and chair without help (may use support object) Continence: controls urination/bowel movements completely by self Feeding: feeds self without help Total Score: 0 Information obtained from: patient Using telephone: independent Traveling: needs assistance Shopping: needs assistance Preparing meals: independent Housework: needs assistance Taking medicine: independent Managing money: independent PHQ-9 Over the last 2 weeks, how often have you been bothered by any of the following problems? 1. Little interest or pleasure in doing things: not at all 2. Feeling down, depressed, or hopeless: several days 3. Trouble falling or staying asleep, or sleeping too much: more than half the days 4. Feeling tired or having little energy: several days 5. Poor appetite or overeating: not at all 6. Feeling bad about yourself - or that you are a failure or have let yourself or your family down: not at all 7. Trouble concentrating on things, such as reading the newspaper or watching television: not at all 8. Moving or speaking so slowly that other people could have noticed. Or the opposite - being so fidgety or restless that you have been moving around a lot more than usual: not at all 9. Thoughts that you would be better off or of hurting yourself in some way: not at all Total score: 4 Depression Screening Interpretation: Positive Depression Screening Done: Yes 17125 - PHQ-9 Billing: Yes Source: Developed by Drs. Brooks Dill, Meghan Arias, Liam Turcios and colleagues, with an educational pat from [employer]. Review of Systems Const Denies chills, Denies fatigue, Denies headache(s) and Denies weight loss Eyes Denies change in vision, Denies diplopia and Denies eye pain ENT Reports Normal hearing present, Denies vertigo, Denies dizziness, Denies headache(s) and Denies nasal discharge Card Denies chest pain, Denies rapid heart rate and Denies dyspnea on exertion Resp Denies chest congestion, Denies cough, Denies pain with cough and Denies dyspnea on exertion GI Denies abdominal pain, Denies hematochezia and Denies change in bowel habits Musc Denies myalgias, Denies arthralgias and Denies joint swelling Skin/Breast Denies lesions and Denies unusual bruising Neuro Reports Normal hearing present, Denies vertigo, Denies dizziness, Denies headache(s) and Denies focal weakness Endo Denies fatigue Physical Exam Vital Signs: Last Vital Signs Pulse 86 01/25/24 10:31 BP 138/92 H 01/25/24 10:31 Pulse Ox 95 01/25/24 10:31 Oxygen Delivery Method Room Air 01/25/24 10:31 BMI result Body Mass Index 50.6 Neuro Cranial nerves: Yes Normal hearing present Assessment & Plan Assessment & Plan (1) Encounter for initial annual wellness visit (AWV) in Medicare patient: Code(s): Z00.00 - Encounter for general adult medical examination without abnormal findings Plan: rhomberg and whisper tests normal, all forms given to patient (2) Hyperlipidemia: Code(s): E78.5 - Hyperlipidemia, unspecified Plan: stable; same rx (3) Hypothyroidism: Code(s): E03.9 - Hypothyroidism, unspecified Plan: stable; same rx (4) Essential hypertension: Code(s): I10 - Essential (primary) hypertension Plan: stable; same rx Quality Reporting (2019) Depression/Bipolar (159/160/161/177) PHQ-9: Total score: 4 Coding Level of Care Code Medicare Subsequent (G0439) Diagnoses Encounter for initial annual wellness visit (AWV) in Medicare patient Z00.00 Hyperlipidemia E78.5 Hypothyroidism E03.9 Essential hypertension I10 CPT Codes Advance Care Planning - Advance Care Planning discussion: On file, no changes ([id number]) Additional Codes PHQ-9 - 45776 - PHQ-9 Billing: Yes ([id number]) Advance Care Planning Advance Care Planning discussion: On file, no changes Forms completed: Health Care Proxy
--- OUTSIDE RECORDS SUMMARY | 2024-01-26 19:50 | XMS_ITS | Continuity of Care Document ---
Author Organization [facility] [address] [place] [address] Phone [phone] Social History Type Date Description Comments Sex Unknown Medical Devices Description No Information Available Encounters Description No Information Available Assessments Description No Information Available Plan of Treatment No Information Available Functional Status Description No Information Available Mental Status Description No Information Available Referrals Description No Information Available
== END 2024-01-25 11:12 | disposition home or self-care (01) ==
PROVIDERS: PCP Internal Medicine; Visit Provider Internal Medicine
DX: Z00.00 Encounter for general adult medical examination without abnormal findings (principal); E78.5 Hyperlipidemia, unspecified; E03.9 Hypothyroidism, unspecified; I10 Essential (primary) hypertension

== ENCOUNTER → 2024-01-25 10:28 | Outpatient (BNVA) | payer MEDICARE, OTHER, SELFPAY | PROVIDERS: PCP Internal Medicine; Visit Provider Internal Medicine | DX: Z00.00 Encounter for general adult medical examination without abnormal findings (principal); I10 Essential (primary) hypertension; E03.9 Hypothyroidism, unspecified; E78.5 Hyperlipidemia, unspecified | CPT/HCPCS: 96127; 99212 ==

== ENCOUNTER → 2024-02-01 13:05 | Outpatient (BNVA) | payer MEDICARE, OTHER, SELFPAY | PROVIDERS: PCP Internal Medicine; Visit Provider Internal Medicine ==

== ENCOUNTER → 2024-02-22 11:06 | Outpatient (BNVA) | payer MEDICARE, OTHER, SELFPAY | PROVIDERS: PCP Internal Medicine; Visit Provider Internal Medicine ==

== ENCOUNTER → 2024-03-07 13:59 | Outpatient (BNVA) | payer MEDICARE, OTHER, SELFPAY | PROVIDERS: PCP Internal Medicine; Visit Provider Internal Medicine ==

== ENCOUNTER 2024-03-08 11:37 | Outpatient (REF) | payer MEDICARE, OTHER, SELFPAY ==
[2024-03-08 13:18] LABS: Alanine Aminotransferase 30 U/L (0-31); Alkaline Phosphatase 64 U/L (39-117); Anion Gap 10 (12-20); Aspartate Amino Transferase 27 U/L (5-31); Bilirubin Total 0.6 mg/dL (0.0-1.0); Blood Urea Nitrogen 19 mg/dL (9-16); Calcium 9.5 mg/dL (8.4-10.2); Carbon Dioxide 31 mmol/L (22-29); Chloride 101 mmol/L (96-108); Estimated Glomerular Filt Rate > 60; Glucose Random 97 mg/dL (60-115); Potassium 4.2 mmol/L (3.3-5.1); Sodium 138 mmol/L (135-145); Total Protein 7.3 g/dL (6.5-8.0)
--- OUTSIDE RECORDS SUMMARY | 2024-03-08 13:22 | XMS_ITS | Continuity of Care Document ---
Author Organization [facility] [address] [place] [address] Phone [phone] Social History Type Date Description Comments Sex Unknown Medical Devices Description No Information Available Encounters Description No Information Available Assessments Description No Information Available Plan of Treatment No Information Available Functional Status Description No Information Available Mental Status Description No Information Available Referrals Description No Information Available
--- OUTSIDE RECORDS SUMMARY | 2024-03-08 13:22 | XMS_ITS ---
Author Organization [facility] Address Unknown Allergies, Adverse Reactions, Alerts Substance Reaction Status Noted Date Resolved Date Sulfa Antibiotics active 07/28/2022 Bees active 07/28/2022 Adhesive Tape active 07/28/2022 KAVEH Inhibitors active 07/28/2022 Problems Problem Status Start Date End Date OTHER LACK OF COORDINATION (Primary) (R27.8 - ICD-10-C M) ACTIVE 07/28/2022 ACUTE RESPIRATORY FAILURE WI TH HYPOXIA (J96.01 - ICD-10-CM) ACTIVE 07/28/2022 OTHER PULMONARY EMBOLISM WIT HOUT ACUTE COR PULMONALE (I26.99 - ICD-10-CM) ACTIVE 07/28/2022 UNSPECIFIED FRACTURE OF RIGH T LOWER LEG, SUBSEQUENT ENCOUNTER FOR CLOSED FRACTURE WITH ROUTINE HEALING (S82.91XD - ICD-10-CM) ACTIVE 07/28/2022 BARIATRIC SURGERY STATUS (Z98.84 - ICD-10-CM) ACTIVE 07/28/2022 MORBID (SEVERE) OBESITY DUE TO EXCESS CALORIES (E66.01 - ICD-10-CM) ACTIVE 07/28/2022 HYPERLIPIDEMIA, UNSPECIFIED (E78.5 - ICD-10-CM) ACTIVE 07/28/2022 UNSPECIFIED PROTEIN-CALORIE MALNUTRITION (E46 - ICD-10 -CM) ACTIVE 07/28/2022 ESSENTIAL (PRIMARY) HYPERTENSION (I10 - ICD-10-CM) ACT RENETTA 07/28/2022 UNSPECIFIED FALL, SUBSEQUENT ENCOUNTER (W19.XXXD - ICD-10-CM) ACTIVE 07/28/2022 GASTRO-ESOPHAGEAL REFLUX DIS EASE WITHOUT ESOPHAGITIS (K21.9 - ICD-10-CM) ACTIVE 07/28/2022 Results * RIB UNI-LAT AND CHEST MIN3V Performed by: [employer] Component Value Range Date RIB UNI-LAT AND CHEST MIN3V RIB UNI-LAT and CHEST MIN3V, LEFTSee NoteFINDINGS: AP examination of the chest and two views of the left ribs. There is atelectasis or fibrosis in the left lower lobe. No infiltrates. No pleural effusions. Heart size is normal. Pulmonary vascularity is normal. No rib fracture is noted.See NoteCONCLUSION: Atelectasis or fibrosis left lower lobe. No evidence of pneumonia or congestive heart failure. No rib fracture is noted. If symptoms persist re-examination in two weeks time is recommended.ELECTRONICALLY SIGNED BY SHOLA FLORES M.D. 09/03/2022 2:44:41 PM EDT.Reason for Study: R07.82 INTERCOSTAL PAINPrincipal Result Sewer Inspector: SHOLA FLORES ([id number])Security Guard Supervisor: AUGUSTINE PHAM (BBIRKS)Base Loader Security Guard Supervisor: CHATA 09/03/2022 02:45 pm EDT * XRAY ABDOMEN 1 VIEW (KUB) Performed by: [employer] Component Value Range Date XRAY ABDOMEN 1 VIEW (KUB) XRAY ABDOMEN 1 VIEW (KUB)FINDINGS: The bowel gas pattern is normal without obstruction or free air. No renal stone is seen. No mass is visible. There is modest amount of stool in colon and rectum.CONCLUSION: Unremarkable bowel gas pattern, improved from 07/22/2022.ELECTRONICALLY SIGNED BY ERIS HARRIS M.D. 08/24/2022 4:50:00 PM EDT.Reason for Study: K59.00 CONSTIPATION, UNSPECIFIEDPrincipal Result Sewer Inspector: ERIS HARRIS ([id number])Security Guard Supervisor: LUCY MADRID ([email or web address])Base Loader Security Guard Supervisor: CHATA 08/24/2022 04:50 pm EDT Encounters Encounter Performer Performer Role Encounter Diagnoses Location Date Leave - Discharged / Transferred to another hospital - [facility] - Acute care hospital [facility] 3 03:34 pm EDT - 3 08:55 pm EDT Discharge - Discharged to home or self care - Home - Community [facility] 3 09:01 am EDT - 3 04:45 pm EDT Reason For Referral Abdominal pain Immunizations Vaccine Date Influenza 2022 01:00 pm EDT Influenza 11/13/2021 12:00 am EDT PPSV23 (Previous Pneumococcal Polysaccha ride)Vaccine 12/07/2016 12:00 am EDT Tdap (Tetanus, Diphtheria, Pertussis) 12:00 am EDT Shingrix 1st Step 09/11/2017 12:00 am EDT SARS-COV-2 (COVID-19) 05/21/2020 12:00 a m EDT SARS-COV-2 (COVID-19) 04/30/2020 12:00 a m EDT Pfizer Covid-19 Booster (SARS-COV-2) vac cine 12/05/2020 12:00 am EDT [employer] Covid-19 Bi-valent Solut ion 11/19/2021 12:00 am EDT Social History
--- OUTSIDE RECORDS SUMMARY | 2024-03-08 13:23 | XMS_ITS | Encounter Summary ---
Author Organization [facility] Address [address] [facility] [facility] [address] [place] [address] Phone Care Team Providers Care Regional Property Manager Name Role Phone Jeffery Eddy MD Primary Care Provider [phone] Reason for Visit * Reason Comments Med Refill Encounter Details Date Type Department Care Team (Late st Contact Info) Description 02/15/2024 Refill [facility] [address] [facility] [address] [place] [phone] Florentino Ribeiro MD [address] [address] Social History Tobacco Use Types Packs/Day Years Used Date Smoking Tobacco: Never Smokeless Tobacco: Never Alcohol Use Standard Drinks/Week Comments Yes 0 (1 standard drink = 0.6 oz pure alcohol) Alcoholic Drinks/day: Occasional social drink Comments Unknown Sex and Gender Information Value Date Recorded Sex Assigned at Not on file Legal Sex Female 5:20 PM EST Gender Identity Not on file Sexual Orientation Not on file documented as of this encounter Plan of Treatment Upcoming Encounters Date Type Department Care Team (Late st Contact Info) Description 03/27/2024 11:20 AM EST Office Visit [facility] [address] [facility] [address] [place] [phone] Florentino Rbieiro MD [address] [phone] documented as of this encounter Visit Diagnoses Not on filedocumented in this encounter Care Teams Regional Property Manager Relationship Specialty Start Date End Date Jeffery Eddy MD [address] [place], [place] PCP - General 02/26/20 documented as of this encounter
--- OUTSIDE RECORDS SUMMARY | 2024-03-08 13:23 | XMS_ITS | Clinical Summary ---
Author Organization [facility] Address [address] [address] Phone Care Team Providers Care Operations Consultant Name Role Phone Jeffery Eddy MD Primary Care Provider [phone] Allergies Active Allergy Reactions Criticality Noted Date Comments Aspirin 12/04/2020 Bee Venom 12/04/2020 Sulfa Antibiotics 12/04/2020 Wound Dressing Adhesive 12/04/2020 Medications Cranberry Extract 250 MG tablet Take 1 capsule by mouth 1 (one) time each day Active Multiple Vitamins-[employer] [facility] als (Multivitamin Adults 50+) tablet Take 2 tablets by mouth 1 (one) time each day Active Calcium Citrate-Vitami n D 315-250 MG-UNIT tablet Take 2 tablets by mouth 2 (two) times a day Active celecoxib (CeleBREX) 100 MG capsule Take 1 capsule by mouth 1 (one) time each day Active cholecalcifero l (VITAMIN D-3) 25 MCG (1000 UT) capsule Take 1 capsule by mouth 1 (one) time each day Active ferrous gluconate (FERGON) 240 (27 Fe) MG tablet Take 1 tablet by mouth 1 (one) time each day Active furosemide (LASIX) 80 MG tablet Take 1 tablet by mouth 1 (one) time each day Active irbesartan (AVAPRO) 150 MG tablet Take 1 tablet by mouth 1 (one) time each day Active Krill Oil ([place]-3) 500 MG capsule Take 1 capsule by mouth 1 (one) time each day Active oxybutynin XL (DITROPAN-XL) 5 MG 24 hr tablet Take 1 tablet by mouth 1 (one) time each day Active pantoprazole (PROTONIX) 40 MG EC tablet Take 1 tablet by mouth 1 (one) time each day Active zolpidem (AMBIEN) 5 MG tablet Take 1 tablet by mouth at night if needed Active simvastatin (ZOCOR) 80 MG tablet Take 80 mg by mouth 1 (one) time each day 1 Active [facility] Bisacodyl 5 MG EC tablet 1 Active warfarin (COUMADIN) 3 MG tablet Take 3 mg by mouth 1 (one) time each day Take as directed per After Visit Summary. Active pyridoxine (B-6) 100 MG tablet Take 100 mg by mouth 1 (one) time each day Active levothyroxine sodium (TIROSINT) 100 MCG capsule Take 100 mcg by mouth 1 (one) time each day Active Evenity 105 MG/1.17ML solution prefilled syringe 3 Active Abaloparatide (TYMLOS SC) Inject under the skin Active potassium citrate 10 MEQ (1080 MG) CR tablet TAKE 2 TABLETS TWICE A DAY 360 tablet 3 5 Active potassium citrate 10 MEQ (1080 MG) CR tablet TAKE 2 TABLETS TWICE A DAY 360 tablet 3 3 025 Discontinued Active Problems Problem Noted Date Diagnosed Date Bariatric surgery status 07/28/2022 023 Obesity 12/03/2020 Peripheral vascular disease 12/03/2020 Atrophy of kidney 12/03/2020 Staghorn calculus 12/03/2020 Stage 3a chronic kidney disease 12/03/2020 Hypertension 12/03/2020 Osteoporosis 12/03/2020 Hyperoxaluria 12/03/2020 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 Encounters Date Type Department Care Team Description 02/15/2024 Refill [facility] [address] [place] [phone] Florentino Ribeiro MD 01/29/2024 Orders Only [facility] [address] [place] [id number] Florentino Ribeiro MD Stage 3a chronic kidney disease (HCC); Peripheral vascular disease (HCC); Hypocitraturia; Hypertension; Hyperoxaluria; Atrophy of kidney; Staghorn calculus from Last 3 Months Family History Medical History Relation Comments Cancer Father lung Heart disease Father CHF Heart disease Mother [place] Relation Status Comments Father Mother Social History Tobacco Use Types Packs/Day Years Used Date Smoking Tobacco: Never Smokeless Tobacco: Never Tobacco Cessation:Counseling Given: No Alcohol Use Standard Drinks/Week Comments Yes 0 (1 standard drink = 0.6 oz pure alcohol) Alcoholic Drinks/day: Occasional social drink Comments Unknown Sex and Gender Information Value Date Recorded Sex Assigned at Not on file Legal Sex Female 5:20 PM EST Gender Identity Not on file Sexual Orientation Not on file Last Filed Vital Signs Vital Sign Reading Time Taken Comments Blood Pressure 160/72 01/28/2023 11:31 AM EST Pulse 91 01/28/2023 11:31 AM EST Temperature - - Respiratory Rate - - Oxygen Saturation 97% 12/04/2021 10:09 AM EDT Inhaled Oxygen Concentration - - Weight 118 kg (260 lb) 01/28/2023 11:31 AM EST Height 160 cm (5' 3 ) 12/04/2021 10:09 AM EDT Body Mass Index 46.06 12/04/2021 10:09 AM EDT Plan of Treatment Upcoming Encounters Date Type Department Care Team (Late st Contact Info) Description 03/27/2024 11:20 AM EST Office Visit [facility] [address] [phone] Florentino Ribeiro MD [address] [phone] Health Maintenance Due Date Last Done Comments Breast Cancer Screening 1950 Colorectal Cancer Screening: Annual FOBT 09/20/2000 Colorectal Cancer Screening: Colonoscopy 09/20/2000 Colorectal Cancer Screening: Sigmoidoscopy 09/20/2000 Pneumococcal Vaccine: 65+ Years (3 of 3 - PCV) 12/07/2017 12/07/2016, 09/24/2009 Influenza Vaccine (#1) 2023 Hepatitis B Vaccine Aged Out No longe r eligible based on patient's age to complete this topic Insurance [facility] MEDICARE [facility] MEDICARE Care Teams Operations Consultant Relationship Specialty Start Date End Date Jeffery Eddy MD [address] [place] PCP - General 02/26/20
== END 2024-03-08 11:38 | disposition home or self-care (01) ==
LOC: HO.LAB 11:37
PROVIDERS: PCP Internal Medicine; Visit Provider Internal Medicine Endocrinology, Diabetes & Metabolism
DX: M81.0 Age-related osteoporosis without current pathological fracture (principal)
CPT/HCPCS: 36415; 80053

== ENCOUNTER 2024-03-14 10:27 | Outpatient (AMB) | payer MEDICARE, OTHER, SELFPAY ==
--- NOTE | 2024-03-14 10:55 | AM.OFFVISNUR ---
Intake Visit Reasons: Prolia Allergies bee pollen [Bee Stings] Allergy (Severe, Verified 03/07/24 14:04) ANAPHYLAXIS KAVEH Inhibitors Allergy (Unknown, Verified 03/07/24 14:04) cough adhesive [ADHESIVE] Allergy (Unknown, Verified 03/07/24 14:04) SORES Sulfa (Sulfonamide Antibiotics) Allergy (Unknown, Verified 03/07/24 14:04) HIVES/SWELLING, rash Office Meds Prolia 60 mg/mL subcutaneous syringe Performing Provider: Brooks Watkins MD Performing Location: [facility] [place] Endocrinology Administered by: Arianna Suárez RN on 03/14/24 10:55 Dose Route Admin Location Dispensed Lot Number Expiration Date [facility] Lead Application Architect 60 mg subcut left upper arm 1 mL [id number] 06/14/26 29848-257-49 AMGEN Comments: Pt accompanied by daughter for visit. Pt is currently wheelchair bound. Consent form signed by patient. Pt tolerated injection well. Pt denies any adverse reactions with her first prolia, this will be her second. Assessment & Plan Assessment & Plan Orders: Orders AMB Denosumab Injection Patient Supplied Today M81.0 - Age-related osteoporosis without current pathological fracture Medications: New Prolia (denosumab) 60 mg subcut ONCE 1 mL 0RF NS M81.0 - Age-related osteoporosis without current pathological fracture Coding
--- OUTSIDE RECORDS SUMMARY | 2024-03-14 11:27 | XMS_ITS | Encounter Summary ---
Author Organization [facility] Address [address] [facility] [address] [place] [address] Phone Care Team Providers Care Message Clerk Name Role Phone Jeffery Eddy MD Primary Care Provider [phone] Reason for Visit * Reason Comments Med Refill Encounter Details Date Type Department Care Team (Late st Contact Info) Description 02/15/2024 Refill [facility] [address] [facility] [address] [place] [phone] Florentino Ribeiro MD [address] [phone] Social History Tobacco Use Types [...] Visit [facility] [address] [facility] [address] [place] [phone] Florentino Ribeiro MD [address] [phone] documented as of this encounter Visit Diagnoses Not on filedocumented in this encounter Care Teams Message Clerk Relationship Specialty Start Date End Date Jeffery Eddy MD [address] [place], [place] PCP - General 02/26/20 documented as of this encounter
--- OUTSIDE RECORDS SUMMARY | 2024-03-14 11:27 | XMS_ITS | Clinical Summary ---
Author Organization [facility] Address [address] [address] Phone Care Team Providers Care Flat Lock Machine Operator Name Role Phone Jeffery Eddy MD Primary Care Provider [phone] Allergies Active Allergy Reactions Criticality Noted Date Comments Aspirin 12/04/2020 Bee Venom 12/04/2020 Sulfa Antibiotics 12/04/2020 Wound Dressing Adhesive 12/04/2020 Medications Cranberry Extract 250 MG tablet Take 1 capsule by mouth 1 (one) time each day Active Multiple Vitamins-[place] als (Multivitamin Adults 50+) tablet Take 2 [...] (one) time each day Active Krill Oil ([place]-3) 500 MG capsule Take 1 capsule by [...] [place] [address] [place] [phone] Florentino Ribeiro MD 01/29/2024 Orders Only [facility] [address] [place] [phone] Florentino Ribeiro MD Stage 3a chronic kidney disease (HCC); Peripheral vascular disease (HCC); Hypocitraturia; Hypertension; Hyperoxaluria; Atrophy of kidney; Staghorn calculus from Last 3 Months Family History Medical History Relation Comments Cancer Father lung Heart disease Father CHF Heart disease Mother [place] Relation Status Comments Father Mother Social History [...] Visit [facility] [address] [phone] Florentino Ribeiro MD [address] [phone] Health Maintenance Due Date Last Done Comments Breast Cancer Screening 1950 Colorectal Cancer Screening: Annual FOBT 09/20/2000 Colorectal Cancer Screening: Colonoscopy 09/20/2000 Colorectal Cancer Screening: Sigmoidoscopy 09/20/2000 Pneumococcal Vaccine: 65+ Years (3 of 3 - PCV) 12/07/2017 12/07/2016, 09/24/2009 Influenza Vaccine (#1) 2023 Hepatitis B Vaccine Aged Out No longe r eligible based on patient's age to complete this topic Insurance [facility] MEDICARE [facility] MEDICARE Care Teams Flat Lock Machine Operator Relationship Specialty Start Date End Date Jeffery Eddy MD [address] [place] PCP - General 02/26/20
== END 2024-03-14 10:46 | disposition home or self-care (01) ==
PROVIDERS: PCP Internal Medicine
DX: M81.0 Age-related osteoporosis without current pathological fracture (principal)

== ENCOUNTER → 2024-03-14 10:27 | Outpatient (BNVA) | payer MEDICARE, OTHER, SELFPAY | PROVIDERS: PCP Internal Medicine | DX: M81.0 Age-related osteoporosis without current pathological fracture (principal); I26.99 Other pulmonary embolism without acute cor pulmonale; Z51.81 Encounter for therapeutic drug level monitoring; Z79.01 Long term (current) use of anticoagulants | CPT/HCPCS: 85610; 96372; 99212; J0897 ==

== ENCOUNTER 2024-03-14 10:59 | Outpatient (AMB) | payer MEDICARE, OTHER, SELFPAY ==
[2024-03-14 11:18] LABS: Prothrombin Time Whole Bld POC 18.9 sec (11.1-13.5); ~PT, ~INR - Anti Coag Clinic 1.6 (0.9-1.1)
--- NOTE | 2024-03-14 11:27 | MHC.OFFVISCO ---
Intake Intake Visit Reasons: Anticoagulation Allergies bee pollen [Bee Stings] Allergy (Severe, Verified 03/14/24 11:18) ANAPHYLAXIS KAVEH Inhibitors Allergy (Unknown, Verified 03/14/24 11:18) cough adhesive [ADHESIVE] Allergy (Unknown, Verified 03/14/24 11:18) SORES Sulfa (Sulfonamide Antibiotics) Allergy (Unknown, Verified 03/14/24 11:18) HIVES/SWELLING, rash Medication List - Last Reconciled 03/14/24 by Noemi Leyva, MAGO acetaminophen 500 mg PO Q6H PRN bisacodyl (Dulcolax (bisacodyl)) 10 mg MO DAILY PRN celecoxib 100 mg PO BID cholecalciferol (vitamin D3) 25 mcg PO DAILY cranberry 400 mg PO DAILY denosumab (Prolia) 60 mg subcut [id number] diclofenac sodium 1% (Arthritis Pain (diclofenac)) 2 grams topical QID PRN docusate sodium 100 mg PO DAILY ferrous sulfate 325 mg PO DAILY furosemide 80 mg PO DAILY irbesartan 150 mg PO DAILY levothyroxine 125 mcg PO DAILY@0600 magnesium hydroxide (Milk of Magnesia) 5 mL PO DAILY PRN multivitamin 2 tabs PO DAILY omeprazole 20 mg PO DAILY ondansetron 4 mg PO Q8H PRN 30 days oxybutynin chloride ER 5 mg PO DAILY potassium citrate ER 20 mEq PO BID pyridoxine (vitamin B6) 25 mg PO DAILY Saccharomyces boulardii (Daily Probiotic (S. boulardii)) 250 mg PO DAILY simethicone (Gas-X) 1 strip PO BEDTIME PRN simvastatin 80 mg PO BEDTIME warfarin 4 mg See Protocol PO DAILY zolpidem 5 mg PO BEDTIME Nursing Note Pt to ACS in accompanied by daughter for yearly meter to meter check. Pt meter checked for battery strength, date, time etc. Last 5 INR's compared to ACS record. All match. Pt performed the procedure with good technique. INR on pt meter 1.6. INR on ACS meter 1.6. INR range is 2-3. Pt states she likes greens and had spinach yesterday. Medications reviewed Risk scores done. Dose: Increase today's dose to 4mg then resume usual dose of 3mg X 4 days and 2mg X 3 days. Pt to hold greens X 2 days then to balancefoods that raise with foods that lower the INR. Signs and symptoms of bleeding and bruising discussed Patient will go to ER with any signs and symptoms of bleeding, or clotting or unusual bruising? Retest: 1 week Patient verbalizes understanding of instructions given and retest date with read back Anti-Coag Initial Assessment Social Hx Patient Tobacco Use Status: Former Tobacco user Tobacco use type: Cigarette alcohol intake: current Alcohol intake frequency: a few times a week Cardiovascular Hx: HTN Lung Disease HX: DVT/PE Endocrine Hx: Thyroid Disease Musculoskeletal Hx: Arthritis Blood Disorder Hx: Hyperlipidemia GI Hx: Other Hx: Kidney Disease and Bladder Disorders Cancer HX: No Psych. Illness/Depression: No Questionnaires HAS-BLED Does the patient had uncontrolled Hypertension?: No Does the patient have renal disease?: Yes Does the patient have liver disease?: No Does the patient have a history of stroke?: No Has the patient had major bleeding or predisposition to bleeding?: No Does the patient have labile INRs?: Yes Is the patient over 65 years of age?: Yes Is the patient on medications that gives them a predisposition to bleeding?: Yes Does the patient use alcohol?: Yes HAS-BLED Score: 5 CHADSVASC Age: 66-74 Gender: Female Does the patient have a history of CHF?: No Does the patient have a history of Hypertension?: Yes Does the patient have a history of Stroke/TIA/Thromboembolism?: Yes Does the patient have a history of Vascular Disease (prior OH, PAD or aortic plaque)?: No Does the patient have a history of Diabetes?: No CHADS VACS Score: 5 Augustin Prediction Score Rsk VTE Active Cancer: No Previous VTE, excluding superficial vein thrombosis: Yes Reduced mobility: Yes Already known Thrombophilic Condition: No With-in last month Trauma and/or Surgery: No Elderly 70 year or older: Yes Heart and/or Respiratory Failure: No Acute Myocardial infarction and/or Ischemic Stroke: No Acute Infection and/or Rheumatologic Disorder: No Obesity (BMI 30 or greater): Yes Ongoing Hormonal Treatment: No Score: 8 Augustin Score less than 4; Low Risk of VTE Augustin Score 4 or greater; High Risk of VTE Coding Level of Care Code Est Patient Level 2 Diagnoses Current use of anticoagulant therapy Z79.01 Results AMB INR Fingerstick AMB INR Fingerstick 1.6 Last Edit by Noemi Leyva RN on 03/14/24 11:37 interface delay Assessment & Plan Assessment & Plan (1) Current use of anticoagulant therapy: Code(s): Z79.01 - watermaster (current) use of anticoagulants Category: Medical
--- OUTSIDE RECORDS SUMMARY | 2024-03-14 12:12 | XMS_ITS | Encounter Summary ---
Author Organization [facility] Address [address] [facility] [address] [place] [address] Phone Care Team Providers Care Metalizing Machine Operator Automatic Name Role Phone Jeffery Eddy MD Primary Care Provider [phone] Reason for Visit * Reason Comments Med Refill Encounter Details Date Type Department Care Team (Late st Contact Info) Description 02/15/2024 Refill [facility] [address] [facility] [address] [place] [phone] Florentino Ribeiro MD [address] [phone] Social History Tobacco Use Types [...] Visit [facility] [address] [facility] [address] [place] [phone] Florentino Ribeiro MD [address] [phone] documented as of this encounter Visit Diagnoses Not on filedocumented in this encounter Care Teams Metalizing Machine Operator Automatic Relationship Specialty Start Date End Date Jeffery Eddy MD [address] [place], [place] PCP - General 02/26/20 documented as of this encounter
--- OUTSIDE RECORDS SUMMARY | 2024-03-14 12:12 | XMS_ITS | Clinical Summary ---
Author Organization [facility] Address [address] [address] Phone Care Team Providers Care Video Game Producer Name Role Phone Jeffery Eddy MD Primary Care Provider [phone] Allergies Active Allergy Reactions Criticality Noted Date Comments Aspirin 12/04/2020 Bee Venom 12/04/2020 Sulfa Antibiotics 12/04/2020 Wound Dressing Adhesive 12/04/2020 Medications Cranberry Extract 250 MG tablet Take 1 capsule by mouth 1 (one) time each day Active Multiple Vitamins-[place] als (Multivitamin Adults 50+) tablet Take 2 [...] (one) time each day Active Krill Oil ([place]-3) 500 MG capsule Take 1 capsule by [...] [place] [address] [place] [phone] Florentino Ribiero MD 01/29/2024 Orders Only [facility] [address] [place] [phone] Florentino Ribeiro MD Stage 3a chronic kidney [...] Visit [facility] [address] [phone] Florentino Ribeiro MD [address] [phone] Health Maintenance Due Date Last Done Comments Breast Cancer Screening 1950 Colorectal Cancer Screening: Annual FOBT 09/20/2000 Colorectal Cancer Screening: Colonoscopy 09/20/2000 Colorectal Cancer Screening: Sigmoidoscopy 09/20/2000 Pneumococcal Vaccine: 65+ Years (3 of 3 - PCV) 12/07/2017 12/07/2016, 09/24/2009 Influenza Vaccine (#1) 2023 Hepatitis B Vaccine Aged Out No longe r eligible based on patient's age to complete this topic Insurance [facility] MEDICARE [facility] MEDICARE Care Teams Video Game Producer Relationship Specialty Start Date End Date Jeffery Eddy MD [address] [place] PCP - General 02/26/20
== END 2024-03-14 12:00 | disposition home or self-care (01) ==
LOC: HO.ACS 10:59
PROVIDERS: PCP Internal Medicine; Visit Provider Internal Medicine
DX: Z79.01 Long term (current) use of anticoagulants (principal)

== ENCOUNTER → 2024-03-21 10:55 | Outpatient (BNVA) | payer MEDICARE, OTHER, SELFPAY | PROVIDERS: PCP Internal Medicine; Visit Provider Internal Medicine ==

== ENCOUNTER → 2024-04-04 12:09 | Outpatient (BNVA) | payer MEDICARE, OTHER, SELFPAY | PROVIDERS: PCP Internal Medicine; Visit Provider Internal Medicine ==

== ENCOUNTER 2024-04-27 13:03 | Outpatient (AMB) | payer MEDICARE, OTHER, SELFPAY ==
--- NOTE | 2024-04-27 13:07 | MHC.PC.OV ---
Vital Signs 04/27/24 13:09 Height 5 ft 4 in Weight 261 lb 2 oz BMI 44.8 BP 130/74 Blood Pressure Location Lt brachial Position Sitting Pulse 83 Pulse Source Pulse Oximeter Temp 97.5 F Temp Source Temporal Artery Scan Pulse Oximetry (%) 95 Oxygen Delivery Method Room Air Intake Visit Reasons: 3 month f/u Intake Note: Patient is here to follow up on HLD, Hypothyroidism, HTN. Senior Lead Software Engineer Required: No Line Technician: Present Accompanied by: Son Allergies bee pollen [Bee Stings] Allergy (Severe, Verified 04/27/24 13:08) ANAPHYLAXIS KAVEH Inhibitors Allergy (Unknown, Verified 04/27/24 13:08) cough adhesive [ADHESIVE] Allergy (Unknown, Verified 04/27/24 13:08) SORES Sulfa (Sulfonamide Antibiotics) Allergy (Unknown, Verified 04/27/24 13:08) HIVES/SWELLING, rash Medication List - Last Reconciled 04/28/24 by Jeffery Eddy MD acetaminophen 500 mg PO Q6H PRN bisacodyl (Dulcolax (bisacodyl)) 10 mg [place] DAILY PRN celecoxib 100 mg PO BID cholecalciferol (vitamin D3) 25 mcg PO DAILY cranberry fruit 400 mg PO DAILY denosumab (Prolia) 60 mg subcut [id number] diclofenac sodium 1% (Arthritis Pain (diclofenac)) 2 grams topical QID PRN docusate sodium 100 mg PO DAILY ferrous sulfate 325 mg PO DAILY furosemide 80 mg PO DAILY irbesartan 150 mg PO DAILY levothyroxine 125 mcg PO DAILY@0600 magnesium hydroxide (Milk of Magnesia) 5 mL PO DAILY PRN multivitamin 2 tabs PO DAILY omeprazole 20 mg PO DAILY ondansetron 4 mg PO Q8H PRN 30 days oxybutynin chloride ER 5 mg PO DAILY potassium citrate ER 20 mEq PO BID pyridoxine (vitamin B6) 25 mg PO DAILY Saccharomyces boulardii (Daily Probiotic (S. boulardii)) 250 mg PO DAILY simethicone (Gas-X) 1 strip PO BEDTIME PRN simvastatin 80 mg PO BEDTIME warfarin 4 mg See Protocol PO DAILY zolpidem 5 mg PO BEDTIME Tobacco use date assessed: 04/27/24 Fall risk assessment: No Falls in past year Last assessed Fall Risk: 04/27/24 Dental Screening Dental Screen Date: 04/27/24 Did you have a dental visit in the last 12 months?: No Did you have a dental problem in the last 6 months where you did not have access to dental care?: No Was dental information given to patient?: Patient has dentist HPI 3 month f/u HPI Details hypothyroidism hyperlipidemia and recovering from fractur right foot PFSH Medical History Morbid obesity Post-menopausal Screening for hyperlipidemia Screening for colon cancer Screening for diabetes mellitus Hypertension Surgical History History of colonoscopy H/O basal cell carcinoma excision H/O gastric bypass History of right hip replacement History of left hip replacement History of tubal ligation History of section Family History Father CHF (congestive heart failure) Metastatic cancer to lung Mother Past heart attack Other Substance abuse Social History Housing: House Alcohol intake: current Alcohol intake frequency: a few times a week Alcohol type: wine Patient Tobacco Use Status: Former Tobacco user Tobacco use type: Cigarette Years Smoked: 22 e-Cigarette/Vaping Use: Never Used Second Hand Smoke Exposure: Yes Advance Directives Date on File: 07/20/22 service: No 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 1. Little interest or pleasure in doing things: not at all 2. Feeling down, depressed, or hopeless: not at all 3. Trouble falling or staying asleep, or sleeping too much: not at all 4. Feeling tired or having little energy: not at all 5. Poor appetite or overeating: not at all 6. Feeling bad about yourself - or that you are a failure or have let yourself or your family down: not at all 7. Trouble concentrating on things, such as reading the newspaper or watching television: not at all 8. Moving or speaking so slowly that other people could have noticed. Or the opposite - being so fidgety or restless that you have been moving around a lot more than usual: not at all 9. Thoughts that you would be better off or of hurting yourself in some way: not at all Total score: 0 Depression Screening Interpretation: Negative Depression Screening Done: Yes Source: Developed by Drs. Brooks Dill, Meghan Arias, Liam Turcios and colleagues, with an educational pat from [employer]. Thrive Questionnaire Date Thrive assessed: 04/27/24 I am a: Patient What is your living situation today?: I have a steady place to live Within the past 12 months, did the food you bought not last and you didn't have the money to get more?: Never true Within the past 12 months, did you worry whether your food would run out before you got money to buy more?: Never true Do you have trouble paying for medicines?: No Do you have trouble getting transportation to medical appointments?: No Do you have trouble paying your heating and electricity bill?: No Do you have trouble taking care of your child, family member or friend?: No Do you have trouble with day-to-day activities such as bathing, preparing meals, shopping, managing finances, etc.?: No Are you currently unemployed and looking for a job?: No Are you interested in more education?: No Please select the resources that you would like help with: None Currently or been in a relationship where the following occur: No concerns reported THRIVE Score: 0 AUDIT C Alcohol Use Questionnaire (AUDIT-C) 1. How often do you have a drink containing alcohol?: 2-4 times a month 2. How many drinks containing alcohol do you have on a typical day when you are drinking?: 1 or 2 3. How often do you have six or more drinks on one occasion?: Never Total Score: 2 NING-7 AMB Questionnaire NING-7 Date NING - 7 assessed: 04/27/24 Feeling nervous, anxious, or on edge: 0 = Not at all Not being able to stop or control worryin = Not at all Worrying too much about different things: 0 = Not at all Trouble relaxin = Not at all Being so restless that it is hard to sit still: 0 = Not at all Becoming easily annoyed or irritable: 0 = Not at all Feeling afraid as if something awful might happen: 0 = Not at all Total NING-7 score (0-4 normal; 5-9 mild; 10-14 moderate; 15-21 severe): 0 Source: Developed by Drs. Brooks Dill, Meghan Arias, Liam Turcios and colleagues, with an educational pat from [employer]. Review of Systems Const Denies chills, Denies headache(s) and Denies weight loss ENT Denies headache(s) Card Denies chest pain, Denies syncope, Denies irregular heart rhythm and Denies dyspnea Resp Denies chest congestion, Denies cough and Denies dyspnea GI Denies abdominal pain, Denies change in stool character, Denies nausea and Denies vomiting Musc Denies deformity and Denies joint swelling Neuro Denies syncope and Denies headache(s) Physical exam (Primary Care) Vital Signs: Last Vital Signs Temp 97.5 F 04/27/24 13:09 Pulse 83 04/27/24 13:09 BP 130/74 04/27/24 13:09 Pulse Ox 95 04/27/24 13:09 Oxygen Delivery Method Room Air 04/27/24 13:09 BMI result Body Mass Index 44.8 Tobacco/Smoking Status: Tobacco use Status Tobacco use date assessed 04/27/24 04/27/24 13:14 Patient Tobacco Use Status Former Tobacco user 04/27/24 13:14 Tobacco use type Cigarette 04/27/24 13:14 e-Cigarette/Vaping Use Never Used 04/27/24 13:14 PHQ-9: PHQ-9 Score PHQ-9: Total score 0 04/27/24 13:14 Depression Screening Interpretation: Negative Thrive Assessment: Date of Thrive Assessment Date Thrive assessed 04/27/24 04/27/24 13:14 Currently or been in a relationship where the following occur: No concerns reported Const General: cooperative, comfortable, no acute distress and alert Neck Neck: Yes no lymphadenopathy Thyroid: Thyroid normal Resp Effort & Inspection: normal respiratory effort Auscultation: clear to auscultation bilaterally Percussion: percussion normal Cardio Jugular venous distension: no JVD Palpation: normal PMI Rate: regular rate Rhythm: regular rhythm Heart sounds: S1 normal heart sound present and S2 normal heart sound present GI Inspection: Yes normal to inspection Palpation (GI): No hepatosplenomegaly present Skin General skin exam: no rashes or lesions noted Extrem General: Yes no clubbing, cyanosis or edema Coding Level of Care Code Est Pt Level 4 (96253) Diagnoses Hyperlipidemia E78.5 Hypothyroidism E03.9 Pulmonary embolism I26.99 Assessment & Plan Assessment & Plan (1) Hyperlipidemia: Code(s): E78.5 - Hyperlipidemia, unspecified Category: Medical Plan: stable; same rx (2) Hypothyroidism: Code(s): E03.9 - Hypothyroidism, unspecified Category: Medical Plan: stable; same rx (3) Pulmonary embolism: Code(s): I26.99 - Other pulmonary embolism without acute cor pulmonale Category: Medical Plan: stable; on warfarin Orders: Orders XR shoulder RT min 2V 04/27/24 M25.519 - Pain in unspecified shoulder
[2024-04-27 13:09] VITALS: BP 130/74; PULSE 83; TEMP 36.4; O2SAT 95; BMI 44.8
--- OUTSIDE RECORDS SUMMARY | 2024-04-27 16:26 | XMS_ITS ---
Author Organization [facility] Care Team Providers Care Revenue Collector Name Role Phone Raul Addison Unavailable Unavailable Berta Ortiz Unavailable Unavailable Kalyn Quevedo Unavailable Unavailable Allergies and adverse reactions Code CodeSystem Substance Reaction Severity StartDate Concern Status 640426026 SNOMED CT Sulfa Antibiotics Unknown 07/28/2022 active Bees Unknown 07/28/2022 active Adhesive Tape Unknown 07/28/[address] KAVEH Inhibitors Unknown 07/28/2022 ac tive Care Team Name Role Address Phone Organization Dates Raul Addison PCP [address], [address], [facility] (Office): : [facility] 07/28/2022 - 11/04/2022 Berta Ortiz Attending Physician [address] [place] [address], [id number], [place] (Office): : [facility] 07/28/2022 - 11/04/2022 Kalyn Quevedo Attending Physician [address] [place] [address], [id number], [place] (Office): [facility] 07/28/2022 - 11/04/2022 Immunizations Immunization Status Vaccine Details Vaccine Code CodeSystem Date Notes Influenza completed Influenza, split virus, trivalent, injectable, contains preservative lotNumber: [id number] expiry: 07/13/2023 Mfg: seqirus Given 0.5 ml Right Deltoid intramuscularly 141 CVX created date: 2022 consent date: 2022 administer ed date: 2022 Educated by Denise Everett LPN on 2022 Influenza completed Influenza, split virus, trivalent, injectable, contains preservative 141 CVX created date: 07/28/2022 administer ed date: 11/13/2021 PPSV23 (Previous Pneumococcal Polysaccharide) Vaccine completed pneumococcal polysaccharide vaccine, 23 valent 33 CVX created date: 07/28/2022 administer ed date: 12/07/2016 Tdap (Tetanus, Diphtheria, Pertussis) completed tetanus toxoid, reduced diphtheria toxoid, and acellular pertussis vaccine, adsorbed 115 CVX created date: 07/28/2022 administer ed date: 11/12/2017 Shingrix 1st Step completed zoster vaccine, live 121 CVX created date: 07/28/2022 administer ed date: 09/11/2017 SARS-COV-2 (COVID-19) completed SARS-COV-2 (COVID-19) vaccine, mRNA, spike protein, LNP, preservative free, 30 mcg/0.3mL dose Step 2 of Multi-step with next step required 208 CVX created date: 07/29/2022 administer ed date: 05/21/2020 SARS-COV-2 (COVID-19) completed SARS-COV-2 (COVID-19) vaccine, mRNA, spike protein, LNP, preservative free, 30 mcg/0.3mL dose Mfg: Pfizer Step 1 of Multi-step with next step required 208 CVX created date: 07/28/2022 administer ed date: 04/30/2020 Pfizer Covid-19 Booster (SARS-COV-2) vaccine completed SARS-COV-2 (COVID-19) vaccine, mRNA, spike protein, LNP, preservative free, 30 mcg/0.3mL dose 208 CVX created date: 07/28/2022 administer ed date: 12/05/2020 Pf[employer] Covid-19 Bi-valent Solution completed SARS-COV-2 (COVID-19) vaccine, mRNA, spike protein, LNP, bivalent, preservative free, 30 mcg/0.3 mL dose, kay-sucrose formulation 300 CVX created date: 07/29/2022 administer ed date: 11/19/2021 Mental Status Section Date Assessment Total Score Description 11/04/2022 BIMS 15 cognitively int act CAM 0 No delirium ind icated PHQ-9 00 09/25/2022 BIMS 15 cognitively int act CAM 0 No delirium ind icated PHQ-9 00 Problems Problem # Description Date of onset Resolved Date Code CodeSystem Concern Status 1 ACUTE RESPIRATORY FAILURE WITH HYPOXIA 07/28/[address] active 2 BARIATRIC SURGERY STATUS 07/28/[address] active 3 ESSENTIAL (PRIMARY) HYPERTENSION 07/28/[address] active 4 GASTRO-ESOPHAGEAL REFLUX DISEASE WITHOUT ESOPHAGITIS 07/28/[address] active 5 HYPERLIPIDEMIA, UNSPECIFIED 07/28/[address] active 6 MORBID (SEVERE) OBESITY DUE TO EXCESS CALORIES 07/28/[address] active 7 OTHER LACK OF COORDINATION 07/28/[address] active 8 OTHER PULMONARY EMBOLISM WITHOUT ACUTE COR PULMONALE 07/28/[address] active 9 UNSPECIFIED FALL, SUBSEQUENT ENCOUNTER 07/28/[address] active 10 UNSPECIFIED FRACTURE OF RIGHT LOWER LEG, SUBSEQUENT ENCOUNTER FOR CLOSED FRACTURE WITH ROUTINE HEALING 07/28/[address] active 11 UNSPECIFIED PROTEIN-CALORIE MALNUTRITION 07/28/[address] active Reason for Referral No Reasons for Referral Entered Social History Social History Observation Description Start Date End Date Code Code System Current Smoking Status Tobacco smoking consumption unknown 847179447 SNOMED CT Sex Assigned At Female 1950 80939-2 [facility] Vital Signs Code Code System Vitals Name Values and Units Timing Information 09682-6 [facility] Pain Level Value=0.0 11/04/2022 9279-1 [facility] Respiratory Rate Value=15.0 Units=/m in 11/04/2022 8462-4 [facility] Blood Pressure-Diastolic Value=68 Un its=mmHg 11/04/2022 8480-6 [facility] Blood Pressure-Systolic Lpies=679 Un its=mmHg 11/04/2022 8310-5 [facility] Body Temperature Value=97.9 Units=?? F 11/04/2022 8867-4 [facility] Heart rate Value=75.0 Units=/min 83939-8 [facility] O2 % BldC Oximetry Value=99.0 Units= % 11/04/2022 92488-8 [facility] Weight Xwqnm=438.0 Units=Lbs 06/2022 8302-2 [facility] Height Value=66.0 Units=Inches 07/29/2022
--- OUTSIDE RECORDS SUMMARY | 2024-04-27 16:27 | XMS_ITS | Continuity of Care Document ---
Author Organization [facility] [address] [place] [address] Phone [phone] Social History Type Date Description Comments Sex Unknown Medical Devices Description No Information Available Encounters Description No Information Available Assessments Description No Information Available Plan of Treatment No Information Available Functional Status Description No Information Available Mental Status Description No Information Available Referrals Description No Information Available
--- OUTSIDE RECORDS SUMMARY | 2024-04-27 16:27 | XMS_ITS | Clinical Summary ---
Author Organization [facility] Address [address] [address] Phone Care Team Providers Care Beauty Culturist Apprentice Name Role Phone Jeffery Eddy MD Primary Care Provider [phone] Allergies Active Allergy Reactions Criticality Noted Date Comments Aspirin 12/04/2020 Bee Venom 12/04/2020 Sulfa Antibiotics 12/04/2020 Wound Dressing Adhesive 12/04/2020 Medications Cranberry Extract 250 MG tablet Take 1 capsule by mouth 1 (one) time each day Active Multiple Vitamins-Minera ls (Multivitamin Adults 50+) tablet Take 2 tablets by mouth 1 (one) time each day Active Calcium Citrate-Vitamin D 315-250 MG-UNIT tablet Take 2 tablets by mouth 2 (two) times a day Active celecoxib (CeleBREX) 100 MG capsule Take 1 capsule by mouth 1 (one) time each day Active cholecalciferol (VITAMIN D-3) 25 MCG (1000 UT) capsule [...] (one) time each day Active Krill Oil ([place]-3) 500 MG capsule Take 1 capsule by [...] by mouth 1 (one) time each day 11/04/2020 Active [facility] Bisacodyl 5 MG EC tablet 10/02/2020 Active warfarin (COUMADIN) 3 MG tablet Take 3 mg by mouth 1 (one) time each day Take as directed per After Visit Summary. Active pyridoxine (B-6) 100 MG tablet Take 100 mg by mouth 1 (one) time each day Active levothyroxine sodium (TIROSINT) 100 MCG capsule Take 100 mcg by mouth 1 (one) time each day Active Abaloparatide (TYMLOS SC) Inject under the skin Active potassium citrate 10 MEQ (1080 MG) CR tablet TAKE 2 TABLETS TWICE A DAY 360 tablet 3 02/17/2024 Active Denosumab (PROLIA SC) Inject under the skin every 6 (six) months Active Active Problems Problem Noted Date Diagnosed Date Bariatric surgery status 07/28/2022 023 Obesity 12/03/2020 Peripheral vascular disease 12/03/2020 Atrophy of kidney 12/03/2020 Staghorn calculus 12/03/2020 Stage 3a chronic kidney disease 12/03/2020 Hypertension 12/03/2020 Osteoporosis 12/03/2020 Hyperoxaluria 12/03/2020 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 [address] [facility] [address] [place] [address] Florentino Ribeiro MD Stage 3a chronic kidney disease (HCC) (Primary Dx); Staghorn calculus; Peripheral vascular disease (HCC); Hypocitraturia; Hypertension; Hyperoxaluria; Bariatric surgery status; Atrophy of kidney 02/15/2024 Refill [facility] [address] [place] [address] Florentino Ribeiro MD 01/29/2024 Orders Only [facility] [address] [place] [address] Florentino Ribeiro MD Stage 3a chronic kidney disease (HCC); Peripheral vascular disease (HCC); Hypocitraturia; Hypertension; Hyperoxaluria; Atrophy of kidney; Staghorn calculus from Last 3 Months Family History Medical History Relation Comments Cancer Father lung Heart disease Father CHF Heart disease Mother DC Relation Status Comments Father Mother Social History [...] Sign Reading Time Taken Comments Blood Pressure 172/96 03/27/2024 11:49 AM EST Pulse 80 03/27/2024 11:49 AM EST Temperature - - Respiratory Rate - - Oxygen Saturation 97% 03/27/2024 11:49 AM EST Inhaled Oxygen Concentration - - Weight 134 kg (295 lb) 03/27/2024 11:49 AM EST Height 160 cm (5' 3 ) 03/27/2024 11:49 AM EST Body Mass Index 52.26 03/27/2024 11:49 AM EST Plan of Treatment Upcoming Encounters Date Type Department Care Team (Late st Contact Info) Description 03/27/2025 11:40 AM EST Office Visit [facility] [address] [address] Florentino Ribeiro MD [facility] [facility] [address] [place] [address] Health Maintenance Due Date Last Done Comments Breast Cancer Screening 1950 Colorectal Cancer Screening: Annual FOBT 09/20/2000 Colorectal Cancer Screening: Colonoscopy 09/20/2000 Colorectal Cancer Screening: Sigmoidoscopy 09/20/2000 Pneumococcal Vaccine: 65+ Years (3 of 3 - PCV) 12/07/2017 12/07/2016, 09/24/2009 Influenza Vaccine (#1) 2023 Hepatitis B Vaccine Aged Out No longe r eligible based on patient's age to complete this topic Procedures Procedure Name Priority Date/Time Associated Diagnosis Comments CALCIUM, URINE, RANDOM Routine 10:44 AM EST Stage 3a chronic kidney disease (HCC) Peripheral vascular disease (HCC) Hypocitraturia Hypertension Hyperoxaluria Atrophy of kidney Staghorn calculus URINALYSIS WITH MICROSCOPIC Routine 03/15/2024 10:44 AM EST Stage 3a chronic kidney disease (HCC) Peripheral vascular disease (HCC) Hypocitraturia Hypertension Hyperoxaluria Atrophy of kidney Staghorn calculus PROTEIN / CREATININE RATIO, URINE Routine 03/15/2024 10:44 AM EST Stage 3a chronic kidney disease (HCC) Peripheral vascular disease (HCC) Hypocitraturia Hypertension Hyperoxaluria Atrophy of kidney Staghorn calculus CBC AND DIFFERENTIAL Routine 03/15/2024 10:44 AM EST Stage 3a chronic kidney disease (HCC) Peripheral vascular disease (HCC) Hypocitraturia Hypertension Hyperoxaluria Atrophy of kidney Staghorn calculus VITAMIN D 25 HYDROXY Routine 03/15/2024 10:44 AM EST Stage 3a chronic kidney disease (HCC) Peripheral vascular disease (HCC) Hypocitraturia Hypertension Hyperoxaluria Atrophy of kidney Staghorn calculus PTH, INTACT Routine 03/15/2024 10:44 AM EST Stage 3a chronic kidney disease (HCC) Peripheral vascular disease (HCC) Hypocitraturia Hypertension Hyperoxaluria Atrophy of kidney Staghorn calculus PHOSPHATE ( PHOSPHORUS) Routine 03/15/2024 10:44 AM EST Stage 3a chronic kidney disease (HCC) Peripheral vascular disease (HCC) Hypocitraturia Hypertension Hyperoxaluria Atrophy of kidney Staghorn calculus MAGNESIUM Routine 03/15/2024 10:44 AM EST Stage 3a chronic kidney disease (HCC) Peripheral vascular disease (HCC) Hypocitraturia Hypertension Hyperoxaluria Atrophy of kidney Staghorn calculus URIC ACID Routine 03/15/2024 10:44 AM EST Stage 3a chronic kidney disease (HCC) Peripheral vascular disease (HCC) Hypocitraturia Hypertension Hyperoxaluria Atrophy of kidney Staghorn calculus COMPREHENSIVE METABOLIC PANEL Routine 03/15/2024 10:44 AM EST Stage 3a chronic kidney disease (HCC) Peripheral vascular disease (HCC) Hypocitraturia Hypertension Hyperoxaluria Atrophy of kidney Staghorn calculus MICROSCOPIC EXAMINATION - DO NOT USE Routine 03/15/2024 10:44 AM EST from Last 3 Months Results * (ABNORMAL) Microscopic Examination (03/15/2024 10:44 AM EST) WBC, Urine >30(A) 0 - 5 /hpf [facility] RBC, Urine 0-2 0 - 2 /hpf [facility] Squamous Epithelial, Urine 0-10 0 - 10 /hpf [facility] Casts None seen None seen /lpf [facility] Bacteria, Urine Many(A) None seen/Few [facility] 03/15/2024 10:4 4 AM EST 03/15/2024 us Florentino Ribeiro MD LAB MICROBIOLOGY - GENERAL OR DERABLES Final Result [facility] [address] [place] [address] * (ABNORMAL) Protein, Total, Random Urine w/Creatinine (Protein/Creat Ratio) (03/15/2024 10:44 AM EST) Creatinine, Ur 111.6 Not Estab. mg/dL [facility] Protein, Ur 56.3 Not Estab. mg/dL [facility] Urine Protein/Creati nine Ratio 504(H) 0 - 200 mg/g creat [facility] Urine (Urine, Clean Catch) 03/15/2024 10:44 AM EST 03/15/2024 us Florentino Ribeiro MD LAB URINE ORDERABLES Final Re sult Performing Organization Address City/[facility]/ZIP Co de Phone Number [facility] [address] [place] [address] * Calcium, urine, random (03/15/2024 10:44 AM EST) Calcium, Ur 2.7 Not Estab. mg/dL [facility] Urine (Urine, Clean Catch) 03/15/2024 10:44 AM EST 03/15/2024 Florentino Ribeiro MD LAB URINE ORDERABLES Final Re sult Performing Organization Address City/[facility] Co de Phone Number [facility] [address] [place] [address] * Vitamin D 25 Hydroxy (03/15/2024 10:44 AM EST) Vitamin D, 25-OH, Total 32.2 30.0 - 100.0 ng/mL [facility] Comment: Vitamin D deficiency has been defined by the [place] of Medicine and an Endocrine Society practice guideline as a level of serum 25-OH vitamin D less than 20 ng/mL (1,2). The Endocrine Society went on to further define vitamin D insufficiency as a level between 21 and 29 ng/mL (2). 1. IOM ([place] of Medicine). 2010. Dietary reference ?? intakes for calcium and D. [place]: The ?? National AcademJelly [employer] Press. 2. Naveen OLGUIN, Ever MOHAMUD, Christian VILLAREAL, et al. ?? Evaluation, treatment, and prevention of vitamin D ?? deficiency: an Endocrine Society clinical practice ?? guideline. JCEM. 2010; 96(7):1911-30. Blood (Blood, Venous) 03/15/2024 10:44 AM EST 03/15/2024 Florentino Ribeiro MD LAB BLOOD ORDERABLES Final Re sult Performing Organization Address City/[facility]/ZIP Co de Phone Number [facility] [address] [place] [address] * (ABNORMAL) Urinalysis with microscopic (03/15/2024 10:44 AM EST) Specific [place], Urine 1.020 1.005 - 1.030 [facility] [phone] pH Urine 6.0 5.0 - 7.5 [facility] Color, Urine Yellow Yellow [facility] Appearance Urine Cloudy(A) Clear [facility] [phone] WBC Esterase Urine 2+(A) Negative [facility] Protein, Ur Trace Negative/Tra ce [facility] Glucose, Ur Negative Negative [facility] Ketones, Urine Trace(A) Negative [facility] Blood Urine Trace(A) Negative [facility] [phone] Bilirubin Urine Negative Negative [facility] [phone] Urobilinogen Urine 0.2 0.2 - 1.0 mg/dL [facility] Nitrite, Urine Negative Negative [facility] Microscopic Examination See below: [facility] Comment:Microscopic was javi cated and was performed. Urine (Urine, Clean Catch) 03/15/2024 10:44 AM EST 03/15/2024 Florentino Ribeiro MD LAB URINE ORDERABLES Final Re sult [facility] [address] [place] [address] * (ABNORMAL) CBC and Differential (03/15/2024 10:44 AM EST) WBC 4.2 3.4 - 10.8 x10E3/uL [facility] RBC 3.96 3.77 - 5.28 x10E6/uL [facility] Hemoglobin 13.1 11.1 - 15.9 g/dL [facility] Hematocrit 39.8 34.0 - 46.6 % [facility] MCV 101(H) 79 - 97 fL [facility] MCH 33.1(H) 26.6 - 33.0 pg [facility] MCHC 32.9 31.5 - 35.7 g/dL [facility] RDW 13.0 11.7 - 15.4 % [facility] Platelets 269 150 - 450 x10E3/uL [facility] Neutrophils Relative 65 Not Estab. % [facility] Lymphocytes Relative 22 Not Estab. % [facility] Monocytes 9 Not Estab. % [facility] Eosinophils Relative 3 Not Estab. % [facility] Basophils Relative 1 Not Estab. % [facility] Neutrophils Absolute 2.7 1.4 - 7.0 x10E3/uL [facility] Lymphocytes Absolute 0.9 0.7 - 3.1 x10E3/uL [facility] Monocytes Absolute 0.4 0.1 - 0.9 x10E3/uL [facility] Eosinophils Absolute 0.1 0.0 - 0.4 x10E3/uL [facility] Basophils Absolute 0.1 0.0 - 0.2 x10E3/uL [facility] Immature Granulocytes 0 Not Estab. % [facility] Immature Grans (Absolute) 0.0 0.0 - 0.1 x10E3/uL [facility] Blood (Blood, Venous) 03/15/2024 10:44 AM EST 03/15/2024 us Florentino Ribeiro MD LAB BLOOD ORDERABLES Final Re sult Performing Organization Address [facility] de Phone Number [facility] [address] [place] [address] * Uric Acid (03/15/2024 10:44 AM EST) Uric Acid 5.1 3.1 - 7.9 mg/dL [facility] Comment:Therapeutic target f or gout patients: <6.0 Blood (Blood, Venous) 03/15/2024 10:44 AM EST 03/15/2024 us Florentino Ribeiro MD LAB BLOOD ORDERABLES Final Re sult Performing Organization Address [facility] Co de Phone Number [facility] [facility] [facility] [employer] [facility] [address] [place] [address] * Phosphorus (03/15/2024 10:44 AM EST) Phosphorus 3.8 3.0 - 4.3 mg/dL [facility] Blood (Blood, Venous) 03/15/2024 10:44 AM EST 03/15/2024 Florentino Ribeiro MD LAB BLOOD ORDERABLES Final Re sult [facility] [address] [place] [address] * PTH, Intact (03/15/2024 10:44 AM EST) Pathologist [facility] PTH 42 15 - 65 pg/mL [facility] Blood (Blood, Venous) 03/15/2024 10:44 AM EST 03/15/2024 Florentino Ribeiro MD LAB BLOOD ORDERABLES Final Re sult Performing Organization Address City/[facility]/ZIP Co de Phone Number [facility] [address] [place] [address] * Magnesium (03/15/2024 10:44 AM EST) Pathologist [facility] Magnesium 2.0 1.6 - 2.3 mg/dL [facility] Blood (Blood, Venous) 03/15/2024 10:44 AM EST 03/15/2024 Florentino Ribeiro MD LAB BLOOD ORDERABLES Final Re sult Performing Organization Address City/[facility]/ZIP Co de Phone Number [facility] [address] [place] [address] * Comprehensive Metabolic Panel (03/15/2024 10:44 AM EST) Pathologist [facility] Glucose 98 70 - 99 mg/dL [facility] BUN 19 8 - 27 mg/dL [facility] Creatinine 0.89 0.57 - 1.00 mg/dL [facility] eGFR CKD-EPI CR 2020 69 >59 mL/min/1.7 3 [facility] BUN/Creatinine Ratio 21 12 - 28 [facility] Sodium 141 134 - 144 mmol/L [facility] Potassium 5.2 3.5 - 5.2 mmol/L [facility] Chloride 101 96 - 106 mmol/L [facility] Bicarbonate (CO2) 25 20 - 29 mmol/L [facility] Calcium 9.1 8.7 - 10.3 mg/dL [facility] Total Protein 7.0 6.0 - 8.5 g/dL [facility] Albumin 4.3 3.8 - 4.8 g/dL [facility] Globulin 2.7 1.5 - 4.5 g/dL [facility] Total Bilirubin 0.4 0.0 - 1.2 mg/dL [facility] Alkaline Phosphatase 74 44 - 121 IU/L [facility] AST (SGOT) 24 0 - 40 IU/L [facility] ALT (SGPT) 25 0 - 32 IU/L [facility] Blood (Blood, Venous) 03/15/2024 10:44 AM EST 03/15/2024 us Florentino Ribeiro MD LAB BLOOD ORDERABLES Final Re sult [facility] [address] [place] [address] from Last 3 Months Insurance [employer] MEDICARE [facility] MEDICARE Care Teams Beauty Culturist Apprentice Relationship Specialty Start Date End Date Jeffery Eddy MD [address] [facility] [place] [facility] - General 02/26/20
== END 2024-04-27 13:30 | disposition home or self-care (01) ==
LOC: HO.HMCH 13:04
PROVIDERS: PCP Internal Medicine; Visit Provider Internal Medicine
DX: E78.5 Hyperlipidemia, unspecified (principal); E03.9 Hypothyroidism, unspecified; I26.99 Other pulmonary embolism without acute cor pulmonale

== ENCOUNTER → 2024-04-27 13:03 | Outpatient (BNVA) | payer MEDICARE, OTHER, SELFPAY | PROVIDERS: PCP Internal Medicine; Visit Provider Internal Medicine | DX: E78.5 Hyperlipidemia, unspecified (principal); E03.9 Hypothyroidism, unspecified; I26.99 Other pulmonary embolism without acute cor pulmonale | CPT/HCPCS: 99212 ==

== ENCOUNTER → 2024-05-23 14:05 | Outpatient (BNVA) | payer MEDICARE, OTHER, SELFPAY | PROVIDERS: PCP Internal Medicine; Visit Provider Internal Medicine Medical Oncology | DX: Z13.89 Encounter for screening for other disorder (principal) ==

== ENCOUNTER → 2024-06-06 14:37 | Outpatient (BNVA) | payer MEDICARE, OTHER, SELFPAY | PROVIDERS: PCP Internal Medicine; Visit Provider Internal Medicine Medical Oncology | DX: Z13.89 Encounter for screening for other disorder (principal) ==

== ENCOUNTER → 2024-06-20 11:15 | Outpatient (BNVA) | payer MEDICARE, OTHER, SELFPAY | PROVIDERS: PCP Internal Medicine; Visit Provider Internal Medicine Medical Oncology | DX: Z13.89 Encounter for screening for other disorder (principal) ==

== ENCOUNTER → 2024-07-04 11:45 | Outpatient (BNVA) | payer MEDICARE, OTHER, SELFPAY | PROVIDERS: PCP Internal Medicine; Visit Provider Internal Medicine Medical Oncology ==

== ENCOUNTER → 2024-07-18 10:24 | Outpatient (BNVA) | payer MEDICARE, OTHER, SELFPAY | PROVIDERS: PCP Internal Medicine; Visit Provider Internal Medicine Medical Oncology | DX: Z13.89 Encounter for screening for other disorder (principal) ==

== ENCOUNTER → 2024-08-01 10:51 | Outpatient (BNVA) | payer MEDICARE, OTHER, SELFPAY | PROVIDERS: PCP Internal Medicine; Visit Provider Internal Medicine Medical Oncology ==

== ENCOUNTER → 2024-08-15 11:11 | Outpatient (BNVA) | payer MEDICARE, OTHER, SELFPAY | PROVIDERS: PCP Internal Medicine; Visit Provider Internal Medicine Medical Oncology | DX: I12.9 Hypertensive chronic kidney disease with stage 1 through stage 4 chronic kidney disease, or unspecified chronic kidney disease (principal); N18.31 Chronic kidney disease, stage 3a; E78.00 Pure hypercholesterolemia, unspecified; E03.9 Hypothyroidism, unspecified; M81.0 Age-related osteoporosis without current pathological fracture; E55.9 Vitamin D deficiency, unspecified; I26.99 Other pulmonary embolism without acute cor pulmonale; D50.9 Iron deficiency anemia, unspecified; G47.00 Insomnia, unspecified; E66.01 Morbid (severe) obesity due to excess calories; Z68.43 Body mass index [BMI] 50.0-59.9, adult; N20.0 Calculus of kidney; Z79.01 Long term (current) use of anticoagulants; Z79.899 Other long term (current) drug therapy; Z13.31 Encounter for screening for depression; Z13.30 Encounter for screening examination for mental health and behavioral disorders, unspecified | CPT/HCPCS: 96127; 99212 ==

== ENCOUNTER 2024-08-15 14:55 | Outpatient (AMB) | payer MEDICARE, OTHER, SELFPAY ==
[2024-08-15 14:58] VITALS: BP 138/82; PULSE 72; O2SAT 93; BMI 50.1
--- NOTE | 2024-08-15 14:58 | MHC.PC.OV ---
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 Required: No Accompanied by: Self / Same As Patient Allergies bee pollen (Bee Stings) Allergy (Severe, Verified 08/15/24 15:26) ANAPHYLAXIS KAVEH Inhibitors Allergy (Unknown, Verified 08/15/24 15:26) cough adhesive (ADHESIVE) Allergy (Unknown, Verified 08/15/24 15:26) SORES Sulfa (Sulfonamide Antibiotics) Allergy (Unknown, Verified 08/15/24 15:26) HIVES/SWELLING, rash Medication List - Last Reconciled 08/15/24 by Cornelio Morales MD acetaminophen 500 mg PO Q6H PRN bisacodyl (Dulcolax (bisacodyl)) 10 mg OR DAILY PRN celecoxib 100 mg PO BID cholecalciferol (vitamin D3) 25 mcg PO DAILY cranberry fruit 400 mg PO DAILY denosumab (Prolia) 60 mg subcut [id number] diclofenac sodium 1% (Arthritis Pain (diclofenac)) 2 grams topical QID PRN docusate sodium 100 mg PO DAILY ferrous sulfate 325 mg PO DAILY fexofenadine 60 mg PO BID PRN furosemide 80 mg PO DAILY irbesartan 150 mg PO DAILY levothyroxine 125 mcg PO DAILY@0600 magnesium hydroxide (Milk of Magnesia) 5 mL PO DAILY PRN multivitamin 2 tabs PO DAILY omeprazole 20 mg PO DAILY ondansetron 4 mg PO Q8H PRN 30 days oxybutynin chloride ER 5 mg PO DAILY potassium citrate ER 20 mEq PO BID pyridoxine (vitamin B6) 25 mg PO DAILY Saccharomyces boulardii (Daily Probiotic (S. boulardii)) 250 mg PO DAILY simethicone (Gas-X) 1 strip PO BEDTIME PRN simvastatin 80 mg PO BEDTIME warfarin 4 mg See Protocol PO DAILY zolpidem 5 mg PO BEDTIME PRN Tobacco use date assessed: 08/15/24 Fall risk assessment: No Falls in past year Last assessed Fall Risk: 08/15/24 Dental Screening Dental Screen Date: 08/15/24 Did you have a dental visit in the last 12 months?: No Did you have a dental problem in the last 6 months where you did not have access to dental care?: No Was dental information given to patient?: No HPI 3 Month F/U RIVAS Eddy HPI Details Patient comes in today for her follow up visit - is transferring over from Dr. Eddy, who retired from the practice a few months ago Patient states that she feels okay She denies any headaches or dizziness Denies any chest pains, no shortness of breath No nausea/vomiting, no abdominal pain No change in bowel habits noted Needs her Zolpidem Rx refilled She does not appear to have any follow up labs done since 2022 [facility] Medical History (Updated 08/20/24 @ 23:56 by Cornelio Morales MD) Morbid obesity with BMI of 50.0-59.9, adult Insomnia Chronic kidney disease, stage III (moderate) Anemia Vitamin D deficiency Morbid obesity Post-menopausal Screening for hyperlipidemia Screening for colon cancer Screening for diabetes mellitus Hypertension Surgical History History of colonoscopy H/O basal cell carcinoma excision H/O gastric bypass History of right hip replacement History of left hip replacement History of tubal ligation History of section Family History Father CHF (congestive heart failure) Metastatic cancer to lung Mother Past heart attack Other Substance abuse Social History Housing: House Alcohol intake: current Alcohol intake frequency: a few times a week Alcohol type: wine Patient Tobacco Use Status: Former Tobacco user Tobacco use type: Cigarette Years Smoked: 22 e-Cigarette/Vaping Use: Never Used Second Hand Smoke Exposure: Yes Advance Directives Date on File: 07/20/22 service: No 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 1. Little interest or pleasure in doing things: not at all 2. Feeling down, depressed, or hopeless: not at all 3. Trouble falling or staying asleep, or sleeping too much: more than half the days 4. Feeling tired or having little energy: several days 5. Poor appetite or overeating: not at all 6. Feeling bad about yourself - or that you are a failure or have let yourself or your family down: not at all 7. Trouble concentrating on things, such as reading the newspaper or watching television: not at all 8. Moving or speaking so slowly that other people could have noticed. Or the opposite - being so fidgety or restless that you have been moving around a lot more than usual: not at all 9. Thoughts that you would be better off or of hurting yourself in some way: not at all Total score: 3 Depression Screening Interpretation: Positive Depression Screening Follow-up: Follow-up Visit Requested Depression Screening Done: Yes 21882 - PHQ-9 Billing: Yes Source: Developed by Drs. Brooks Dill, Meghan Arias, Liam Turcios and colleagues, with an educational pat from [employer]. Thrive Questionnaire Date Thrive assessed: 08/15/24 I am a: Patient What is your living situation today?: I have a steady place to live Within the past 12 months, did the food you bought not last and you didn't have the money to get more?: Never true Within the past 12 months, did you worry whether your food would run out before you got money to buy more?: Never true Do you have trouble paying for medicines?: No Do you have trouble getting transportation to medical appointments?: Yes Do you have trouble paying your heating and electricity bill?: No Do you have trouble taking care of your child, family member or friend?: No Do you have trouble with day-to-day activities such as bathing, preparing meals, shopping, managing finances, etc.?: No Are you currently unemployed and looking for a job?: No Are you interested in more education?: No Please select the resources that you would like help with: None Currently or been in a relationship where the following occur: No concerns reported THRIVE Score: 1 AUDIT C Alcohol Use Questionnaire (AUDIT-C) 1. How often do you have a drink containing alcohol?: 2-3 times a week 2. How many drinks containing alcohol do you have on a typical day when you are drinking?: 3 or 4 3. How often do you have six or more drinks on one occasion?: Never Total Score: 4 Score Reviewed/Action Taken: Yes NING-7 AMB Questionnaire NING-7 Date NING - 7 assessed: 08/15/24 Feeling nervous, anxious, or on edge: 0 = Not at all Not being able to stop or control worryin = Several days Worrying too much about different things: 1 = Several days Trouble relaxin = Several days Being so restless that it is hard to sit still: 0 = Not at all Becoming easily annoyed or irritable: 1 = Several days Feeling afraid as if something awful might happen: 1 = Several days Total NING-7 score (0-4 normal; 5-9 mild; 10-14 moderate; 15-21 severe): 5 Source: Developed by Drs. Brooks Dill, Meghan Arias, Liam Turcios and colleagues, with an educational pat from [employer]. Review of Systems Const Denies chills, Denies fatigue, Denies fever(s) and Denies headache(s) ENT Denies dysphagia, Denies dizziness, Denies otalgia, Denies headache(s), Denies neck pain, Denies odynophagia and Denies sore throat Card Denies chest pain, Denies palpitations and Denies dyspnea Resp Denies cough and Denies dyspnea GI Denies abdominal pain, Denies constipation, Denies dysphagia, Denies heartburn, Denies diarrhea, Denies nausea, Denies odynophagia and Denies vomiting Denies difficulty voiding, Denies nocturia, Denies dysuria and Denies urinary urgency Musc Denies back pain and Denies neck pain Skin/Breast Denies rash Neuro Denies dizziness and Denies headache(s) Endo Denies fatigue and Denies palpitations Physical exam (Primary Care) Vital Signs: Last Vital Signs Pulse 72 08/15/24 14:58 BP 138/82 08/15/24 14:58 Pulse Ox 93 08/15/24 14:58 Oxygen Delivery Method Room Air 08/15/24 14:58 BMI result Body Mass Index 50.1 Tobacco/Smoking Status: Tobacco use Status Tobacco use date assessed 08/15/24 08/15/24 15:10 Patient Tobacco Use Status Former Tobacco user 08/15/24 15:10 Tobacco use type Cigarette 08/15/24 15:10 e-Cigarette/Vaping Use Never Used 08/15/24 15:10 PHQ-9: PHQ-9 Score PHQ-9: Total score 3 08/15/24 15:28 Depression Screening Interpretation: Positive Depression Screening Follow-up: Follow-up Visit Requested Thrive Assessment: Date of Thrive Assessment Date Thrive assessed 08/15/24 08/15/24 15:10 Currently or been in a relationship where the following occur: No concerns reported Const General: no acute distress and alert HENMT Ears: TM's normal bilaterally and EAC's normal Throat: Yes posterior oropharynx normal and Yes tonsils normal (no TP congestion) Neck Neck: Yes supple and No lymphadenopathy Thyroid: Thyroid normal Resp Auscultation: clear to auscultation bilaterally, no rales and no wheezes Cardio Rate: regular rate Rhythm: regular rhythm Heart sounds: no murmurs GI Palpation (GI): Soft to palpation and nontender Auscultation: normal bowel sounds General: Yes no CVA tenderness Back/Spine/Pelvis Back: no CVA tenderness Thoracic/Lumbar Spine: No lumbar spinal tenderness Skin Rashes: no rashes Extrem General: Yes no clubbing, cyanosis or edema Results AMB INR Fingerstick AMB INR Fingerstick 1.9 Last Edit by Gunjan Bailey RN on 08/15/24 11:57 Coding Level of Care Code Est Pt Level 4 (43541) Diagnoses Essential hypertension I10 Pure hypercholesterolemia E78.00 Hyperlipidemia type: pure hypercholesterolemia Acquired hypothyroidism E03.9 Hypothyroidism type: acquired Age-related osteoporosis without current pathological fracture M81.0 Osteoporosis type: age-related Presence of current pathological fracture: without current pathological fracture Vitamin D deficiency E55.9 Pulmonary embolism without acute cor pulmonale, unspecified chronicity, unspecified pulmonary embolism type I26.99 Pulmonary embolism type: unspecified Chronicity: unspecified Acute cor pulmonale presence: without acute cor pulmonale Iron deficiency anemia, unspecified iron deficiency anemia type D50.9 Anemia type: iron deficiency Iron deficiency anemia type: unspecified iron deficiency Atrophy of left kidney N26.1 Stage 3a chronic kidney disease N18.31 Chronic kidney disease stage 3 subtype: stage 3a (GFR 45-59) Insomnia, unspecified type G47.00 Insomnia type: unspecified Morbid obesity with BMI of 50.0-59.9, adult E66.01; Z68.43 Additional Codes PHQ-9 - 05987 - PHQ-9 Billing: Yes ([id number]) Assessment & Plan Assessment & Plan (1) Essential hypertension: Code(s): I10 - Essential (primary) hypertension Category: Medical Plan: Reinforced low sodium diet - goal is systolic BP of at least 130 to 140 mm or less Continue Irbesartan 150 mg QD and Furosemide 80 mg QD (2) Hyperlipidemia: Code(s): E78.5 - Hyperlipidemia, unspecified Category: Medical Qualifiers: Hyperlipidemia type: pure hypercholesterolemia Qualified Code(s): E78.00 - Pure hypercholesterolemia, unspecified Plan: Reinforced low cholesterol diet Continue Simvastatin 80 mg QD Will have patient check her labs and fasting lipids in 3 months for follow up (3) Hypothyroidism: Code(s): E03.9 - Hypothyroidism, unspecified Category: Medical Qualifiers: Hypothyroidism type: acquired Qualified Code(s): E03.9 - Hypothyroidism, unspecified Plan: Continue Levpthyroxine 125 mcg QD Will check patient's TFTs in 3 months (4) Osteoporosis: Code(s): M81.0 - Age-related osteoporosis without current pathological fracture Category: Medical Qualifiers: Osteoporosis type: age-related Presence of current pathological fracture: without current pathological fracture Qualified Code(s): M81.0 - Age-related osteoporosis without current pathological fracture Plan: Continue Prolia 60 mg SQ every 6 months Follow up with endocrinology as scheduled (5) Vitamin D deficiency: Code(s): E55.9 - Vitamin D deficiency, unspecified Category: Medical Plan: Continue Vitamin D3 1000 units QD (6) Pulmonary embolism: Code(s): I26.99 - Other pulmonary embolism without acute cor pulmonale Category: Medical Qualifiers: Pulmonary embolism type: unspecified Chronicity: unspecified Acute cor pulmonale presence: without acute cor pulmonale Qualified Code(s): I26.99 - Other pulmonary embolism without acute cor pulmonale Plan: Continue Coumadin 4 mg QD (7) Anemia: Code(s): D64.9 - Anemia, unspecified Category: Medical Qualifiers: Anemia type: iron deficiency Iron deficiency anemia type: unspecified iron deficiency Qualified Code(s): D50.9 - Iron deficiency anemia, unspecified Plan: Continue Ferrous Sulfate 325 mg QD Will recheck her CBC in 3 months (8) Atrophy of left kidney: Code(s): N26.1 - Atrophy of kidney (terminal) Category: Medical Plan: This is most likely due to staghorn calculus Follow up with nephrology as scheduled (9) Chronic kidney disease, stage III (moderate): Code(s): N18.30 - Chronic kidney disease, stage 3 unspecified Category: Medical Qualifiers: Chronic kidney disease stage 3 subtype: stage 3a (GFR 45-59) Qualified Code(s): N18.31 - Chronic kidney disease, stage 3a Plan: Follow up with nephrology as scheduled (10) Insomnia: Code(s): G47.00 - Insomnia, unspecified Category: Medical Qualifiers: Insomnia type: unspecified Qualified Code(s): G47.00 - Insomnia, unspecified Plan: Sleep hygiene reinforced Continue Zolpidem 5 mg Q HS PRN - Rx refilled (11) Morbid obesity with BMI of 50.0-59.9, adult: Code(s): E66.01 - Morbid (severe) obesity due to excess calories; Z68.43 - Body mass index [BMI] 50.0-59.9, adult Category: Medical Plan: Reinforced diet; exercise and weight loss are unrealistic given patient's comorbidities and physical issues Plan Follow up in 3 months Orders: Orders Complete Blood Count Auto Diff 3 Months D64.9 - Anemia, unspecified Free T4 (Free Thyroxine) 3 Months E03.9 - Hypothyroidism, unspecified Vitamin D 25-OH Total 3 Months E55.9 - Vitamin D deficiency, unspecified UA CC w/rflx Micro + Cult 3 Months R30.0 - Dysuria Comprehensive [place]. Panel Fast 3 Months E78.00 - Pure hypercholesterolemia, unspecified Thyroid Stimulating Hormone 3 Months E03.9 - Hypothyroidism, unspecified Lipid Panel 3 Months E78.00 - Pure hypercholesterolemia, unspecified Medications: Changed From zolpidem 5 mg PO BEDTIME 30 tabs 5RF To zolpidem 5 mg PO BEDTIME PRN 30 tabs 2RF insomnia
== END 2024-08-15 15:41 | disposition home or self-care (01) ==
LOC: HO.HMCH 14:56
PROVIDERS: PCP Internal Medicine; Visit Provider Internal Medicine
DX: I12.9 Hypertensive chronic kidney disease with stage 1 through stage 4 chronic kidney disease, or unspecified chronic kidney disease (principal); N18.31 Chronic kidney disease, stage 3a; E66.01 Morbid (severe) obesity due to excess calories; I26.99 Other pulmonary embolism without acute cor pulmonale; Z68.43 Body mass index [BMI] 50.0-59.9, adult; E78.00 Pure hypercholesterolemia, unspecified; E03.9 Hypothyroidism, unspecified; M81.0 Age-related osteoporosis without current pathological fracture; E55.9 Vitamin D deficiency, unspecified; D50.9 Iron deficiency anemia, unspecified; N26.1 Atrophy of kidney (terminal); G47.00 Insomnia, unspecified

== ENCOUNTER 2024-08-28 12:12 | Outpatient (REF) | payer MEDICARE, OTHER, SELFPAY ==
--- OUTSIDE RECORDS SUMMARY | 2024-08-28 13:14 | XMS_ITS | Clinical Summary ---
Author Organization [facility] Address [address] [address] Phone Care Team Providers Care [place] Name Role Phone Jeffery Eddy MD Primary Care Provider [phone] Allergies Active Allergy Reactions Criticality Noted Date [...] (one) time each day Active Krill Oil ([place]-3) 500 MG capsule Take 1 capsule by [...] 12/03/2020 Osteoporosis 12/03/2020 Hyperoxaluria 12/03/2020 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 Family History Medical History Relation Comments Cancer Father lung Heart disease Father CHF Heart disease Mother PR Relation Status Comments Father Mother Social History [...] Office Visit [facility] [address] [id number] Florentino Ribeiro MD [address] [id number] Health Maintenance Due Date Last Done Comments Breast Cancer Screening 1950 Colorectal Cancer Screening: Annual FOBT 09/20/2000 Colorectal Cancer Screening: Colonoscopy 09/20/2000 Colorectal Cancer Screening: Sigmoidoscopy 09/20/2000 Pneumococcal Vaccine: 50+ Years (3 of 3 - PCV) 12/07/2017 12/07/2016, 09/24/2009 Influenza Vaccine (#1) 2024 Pneumococcal Vaccine: Peds ( 0 to 5 Years) and At-Risk Patients (6 to 49 Years) Discontinued 12/07/2016, 09/24/2009 Hepatitis B Vaccine Aged Out No longe r eligible based on patient's age to complete this topic Insurance [facility] Medicare [facility] Medicare Care Teams [place] [employer] Relationship Specialty Start Date End Date Jeffery Eddy MD [address] [place] PCP - General 02/26/20
--- OUTSIDE RECORDS SUMMARY | 2024-08-28 13:14 | XMS_ITS ---
Continuity of Care Document (CCD) Created on: August 28, 2024 Amber Dozier External Reference #: [id number] : 1950 Sex: Female Author Organization [facility] [address] [place] [address] Phone [phone] Social History Type Date Description Comments Sex Female Sex Unknown Medical Devices Description No Information Available Encounters Description No Information Available Assessments Description No Information Available Plan of Treatment No Information Available Functional Status Description No Information Available Mental Status Description No Information Available Referrals Description No Information Available
[2024-08-28 14:18] LABS: Calcium 9.4 mg/dL (8.4-10.2)
[2024-08-28 14:22] LABS: Albumin Level 4.3 g/dL (3.5-5.0); Anion Gap 13 (12-20); Blood Urea Nitrogen 17 mg/dL (9-16); Calcium 9.4 mg/dL (8.4-10.2); Carbon Dioxide 32 mmol/L (22-29); Chloride 102 mmol/L (96-108); Estimated Glomerular Filt Rate > 60; Potassium 4.9 mmol/L (3.3-5.1); Sodium 142 mmol/L (135-145)
== END 2024-08-28 12:13 | disposition home or self-care (01) ==
LOC: HO.LAB 12:12
PROVIDERS: PCP Internal Medicine; Visit Provider Internal Medicine Endocrinology, Diabetes & Metabolism
DX: M81.0 Age-related osteoporosis without current pathological fracture (principal)
CPT/HCPCS: 36415; 80048; 82040; 82310

== ENCOUNTER 2024-10-10 10:12 | Outpatient (AMB) | payer MEDICARE, OTHER, SELFPAY ==
--- NOTE | 2024-10-10 10:15 | A.OFFVIS_ITS ---
Vital Signs 10/10/24 10:19 Weight 292 lb 5.327 oz BP 150/88 H Blood Pressure Location Rt brachial Position Sitting Pulse 84 Pulse Source Pulse Oximeter Pulse Oximetry (%) 94 Oxygen Delivery Method Room Air Intake Visit Reasons: Osteoporosis/ prolia Intake Note: Patient present today for Osteoporosis follow up and Prolia injection. 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 Accompanied by: Daughter Allergies bee pollen (Bee Stings) Allergy (Severe, Verified 10/10/24 10:20) ANAPHYLAXIS KAVEH Inhibitors Allergy (Unknown, Verified 10/10/24 10:20) cough adhesive (ADHESIVE) Allergy (Unknown, Verified 10/10/24 10:20) SORES Sulfa (Sulfonamide Antibiotics) Allergy (Unknown, Verified 10/10/24 10:20) HIVES/SWELLING, rash Medication List - Last Reconciled 10/10/24 by Brooks Watkins MD acetaminophen 500 mg PO Q6H PRN bisacodyl (Dulcolax (bisacodyl)) 10 mg AL DAILY PRN celecoxib 100 mg PO BID cholecalciferol (vitamin D3) 25 mcg PO DAILY cranberry fruit 400 mg PO DAILY denosumab (Prolia) 60 mg subcut [id number] diclofenac sodium 1% (Arthritis Pain (diclofenac)) 2 grams topical QID PRN docusate sodium 100 mg PO DAILY ferrous sulfate 325 mg PO DAILY fexofenadine 60 mg PO BID PRN furosemide 80 mg PO DAILY irbesartan 150 mg PO DAILY levothyroxine 125 mcg PO DAILY@0600 magnesium hydroxide (Milk of Magnesia) 5 mL PO DAILY PRN multivitamin 2 tabs PO DAILY omeprazole 20 mg PO DAILY ondansetron 4 mg PO Q8H PRN 30 days oxybutynin chloride ER 5 mg PO DAILY potassium citrate ER 20 mEq PO BID pyridoxine (vitamin B6) 25 mg PO DAILY Saccharomyces boulardii (Daily Probiotic (S. boulardii)) 250 mg PO DAILY simethicone (Gas-X) 1 strip PO BEDTIME PRN simvastatin 80 mg PO BEDTIME warfarin 4 mg See Protocol PO DAILY zolpidem 5 mg PO BEDTIME PRN HPI Comments Details: 73 YO F with PMHx gastric bypass is seen in consultation at the request of PCP for Osteoporosis. First diagnosed in 5-6 yrs ago. Saw x ray developer at [facility] [place] Received treatment in the past with Evelyn, 2019 from to 2019. Could not tolerate because of headaches . history of pathologic fracture of fenur 4 yrs ago fell out of bed or ONJ. Has servings of dietary calcium per day in the form of []. Takes Calcium supplement 1200 mg daily in divided doses. Takes 1000 IU of Vitamin D daily for 3 yrs . Takes PPI, no anticoagulant, noantiepileptic or no glucocorticoid medication. 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 UTD on dental cleanings and does not sees dentist every 6 months. No planned upcoming dental work or extractions. DXA dated 08/23/20 :FINDINGS: AP SPINE L1-L4: BMD 1.088 g/cm2, Z-score -0.3, T-score -0.8, normal. LEFT FOREARM RADIUS 33%: BMD 0.595 g/cm2, Z-score -1.5, T-score -3.2, osteoporosis. IDENTIFIED RISK FACTORS: Early menopause, height loss, osteoporosis, history of fracture (adult), secondary osteoporosis. HISTORY OF FRACTURE: Femur. MEDICATIONS: Calcium, vitamin D. MM/XR DEXA axial skeleton IMPRESSION: 1. DIAGNOSIS: Severe osteoporosis based on the lowest T-score value of -3.2 in the forearm radius 33% and history of a fracture of femur applying World Health Organization criteria.? Labs: Secondary workup was negative. Receiving evenity monthly. Received injections of Evenity and then transition to Prolia. Recent DEXA showed improvements in the bone density with continued osteoporosis. Patient is due for Prolia injectiontoday . She started Prolia in 05/2023 The patient is a 74-year-old female presenting for osteoporosis management and Prolia injection. The patient has been receiving Prolia injections for osteoporosis management, with the current visit marking the third injection in a planned three-year course. The treatment began in May 2023, following a course of Evenity, and is expected to continue until 2026. The patient reports no adverse effects from Prolia, and her recent blood work, conducted three weeks prior, indicates stable calcium levels. She is advised to monitor for symptoms of hypocalcemia, such as tingling around the mouth or muscle spasms, following injections. Preventative care includes regular bone density monitoring, with the next assessment scheduled for May 2025. - Prolia: For osteoporosis management. - Calcium and Vitamin D: For bone health maintenance. [facility] Medical History (Updated 08/20/24 @ 23:56 by Cornelio Morales MD) Morbid obesity with BMI of 50.0-59.9, adult Insomnia Chronic kidney disease, stage III (moderate) Anemia Vitamin D deficiency Morbid obesity Post-menopausal Screening for hyperlipidemia Screening for colon cancer Screening for diabetes mellitus Hypertension Surgical History History of colonoscopy H/O basal cell carcinoma excision H/O gastric bypass History of right hip replacement History of left hip replacement History of tubal ligation History of section Family History Father CHF (congestive heart failure) Metastatic cancer to lung Mother Past heart attack Other Substance abuse Social History Housing: House Alcohol intake: current Alcohol intake frequency: a few times a week Alcohol type: wine Patient Tobacco Use Status: Former Tobacco user Tobacco use type: Cigarette Years Smoked: 22 e-Cigarette/Vaping Use: Never Used Second Hand Smoke Exposure: Yes Advance Directives Date on File: 07/20/22 service: No Current occupational status: retired 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 Current occupational exposures/hazards: No Cognitive needs: Yes (cane) Hearing needs: No Vision needs: Yes (glasses) Physical Exam Vital Signs: Last Vital Signs Pulse 84 10/10/24 10:19 BP 150/88 H 10/10/24 10:19 Pulse Ox 94 10/10/24 10:19 Oxygen Delivery Method Room Air 10/10/24 10:19 Assessment & Plan Assessment & Plan (1) Osteoporosis: Code(s): M81.0 - Age-related osteoporosis without current pathological fracture Category: Medical Qualifiers: Osteoporosis type: age-related Presence of current pathological fracture: without current pathological fracture Qualified Code(s): M81.0 - Age- related osteoporosis without current pathological fracture Plan: This 72-year-old white female with a history of osteoporosis and femur fracture in past. Secondary causes have been ruled out. Patient has tried and was intolerant of Tymlos. She had a prior history of femur . fracture. She received a full year of Evenity and transitioned to Prolia in 05/2023 The plan is to continue Prolia for minimum full 3 years course to end in 05/17. She is due for repeat DEXA in 05/2025 1. Osteoporosis The patient is currently on Prolia for osteoporosis management, with the third injection administered today. The treatment plan includes continuing Prolia until 2026, with regular monitoring of calcium levels to prevent hypocalcemia. The patient is advised to report any symptoms of tingling or muscle spasms immediately. Bone density will be reassessed in May 2025. During the visit, I discussed the continuation of Prolia for osteoporosis management, emphasizing the importance of monitoring for hypocalcemia symptoms. I advised the patient to maintain safety at home to prevent falls and encouraged light weight-bearing exercises. We also reviewed the schedule for future bone density assessments. The patient had an opportunity to ask questions regarding treatment plan. The patient expressed understanding and agreement with the above treatment plan. Patient was informed and verbally consented to the use of an ambient scribe for clinic note documentation during this visit. Orders: Orders XR DEXA axial skeleton 9 Months M81.0 - Age-related osteoporosis without current pathological fracture Basic Metabolic Panel Fasting 6 Months M81.0 - Age-related osteoporosis without current pathological fracture Calcium 6 Months M81.0 - Age-related osteoporosis without current pathological fracture Albumin Level 6 Months M81.0 - Age-related osteoporosis without current pathological fracture Coding Level of Care Code Est Pt Level 3 (15147) Diagnoses Age-related osteoporosis without current pathological fracture M81.0 Osteoporosis type: age-related Presence of current pathological fracture: without current pathological fracture
[2024-10-10 10:19] VITALS: BP 150/88; PULSE 84; O2SAT 94
--- OUTSIDE RECORDS SUMMARY | 2024-10-10 10:57 | XMS_ITS | Continuity of Care Document ---
Author Organization [facility] [address] [place] [address] Phone [phone] Social History Type Date Description Comments Sex Female Sex Unknown Medical Devices Description No Information Available Encounters Description No Information Available Assessments Description No Information Available Plan of Treatment No Information Available Functional Status Description No Information Available Mental Status Description No Information Available Referrals Description No Information Available
--- OUTSIDE RECORDS SUMMARY | 2024-10-10 10:57 | XMS_ITS | Clinical Summary ---
Author Organization [facility] Address [address] [address] Phone Care Team Providers Care Automat Car Attendant Name Role Phone Jeffery Eddy MD Primary Care Provider [phone] Allergies Active Allergy Reactions Criticality Noted Date [...] (one) time each day Active Krill Oil (Greenwald-3) 500 MG capsule Take 1 capsule by [...] Heart disease Father CHF Heart disease Mother [place] Relation Status Comments Father Mother Social History [...] Office Visit [facility] [address] [phone] Florentino Ribeiro MD [address] [phone] Health Maintenance Due Date Last [...] patient's age to complete this topic Insurance [facility] Medicare [facility] Medicare Care Teams Automat Car Attendant Relationship Specialty Start Date End Date Jeffery Eddy MD [id number] [place] PCP - General 02/26/20
== END 2024-10-10 10:52 | disposition home or self-care (01) ==
LOC: HO.ENCR 10:13
PROVIDERS: PCP Internal Medicine; Visit Provider Internal Medicine Endocrinology, Diabetes & Metabolism
DX: M81.0 Age-related osteoporosis without current pathological fracture (principal)
CPT/HCPCS: 99213

== ENCOUNTER → 2024-10-10 10:12 | Outpatient (BNVA) | payer MEDICARE, OTHER, SELFPAY | PROVIDERS: PCP Internal Medicine; Visit Provider Internal Medicine Endocrinology, Diabetes & Metabolism | DX: M81.0 Age-related osteoporosis without current pathological fracture (principal) | CPT/HCPCS: 96372; 99212; J0897 ==

== ENCOUNTER 2024-11-22 13:29 | Outpatient (AMB) | payer MEDICARE, OTHER, SELFPAY ==
[2024-11-22 13:34] VITALS: BP 122/68; PULSE 68; O2SAT 94
--- NOTE | 2024-11-22 13:34 | A.OFFPC_ITS ---
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: No Accompanied by: Self / Same As Patient Allergies bee pollen (Bee Stings) Allergy (Severe, Verified 11/22/24 14:21) ANAPHYLAXIS KAVEH Inhibitors Allergy (Unknown, Verified 11/22/24 14:21) cough adhesive (ADHESIVE) Allergy (Unknown, Verified 11/22/24 14:21) SORES Sulfa (Sulfonamide Antibiotics) Allergy (Unknown, Verified 11/22/24 14:21) HIVES/SWELLING, rash Medication List - Last Reconciled 11/22/24 by Cornelio Morales MD acetaminophen 500 mg PO Q6H PRN bisacodyl (Dulcolax (bisacodyl)) 10 mg LA DAILY PRN celecoxib 100 mg PO BID cholecalciferol (vitamin D3) 25 mcg PO DAILY cranberry fruit 400 mg PO DAILY denosumab (Prolia) 60 mg subcut [id number] diclofenac sodium 1% (Arthritis Pain (diclofenac)) 2 grams topical QID PRN docusate sodium 100 mg PO DAILY ferrous sulfate 325 mg PO DAILY fexofenadine 60 mg PO BID PRN furosemide 80 mg PO DAILY irbesartan 150 mg PO DAILY levothyroxine 125 mcg PO DAILY@0600 magnesium hydroxide (Milk of Magnesia) 5 mL PO DAILY PRN multivitamin 2 tabs PO DAILY omeprazole 20 mg PO DAILY ondansetron 4 mg PO Q8H PRN 30 days oxybutynin chloride ER 5 mg PO DAILY potassium citrate ER 20 mEq PO BID pyridoxine (vitamin B6) 25 mg PO DAILY Saccharomyces boulardii (Daily Probiotic (S. boulardii)) 250 mg PO DAILY simethicone (Gas-X) 1 strip PO BEDTIME PRN simvastatin 80 mg PO BEDTIME warfarin 4 mg See Protocol PO DAILY zolpidem 5 mg PO BEDTIME PRN Tobacco use date assessed: 11/22/24 Fall risk assessment: No Falls in past year Last assessed Fall Risk: 11/22/24 Dental Screening Dental Screen Date: 11/22/24 Did you have a dental visit in the last 12 months?: No Did you have a dental problem in the last 6 months where you did not have access to dental care?: No Was dental information given to patient?: No HPI hyperlipidemia, hypothyroidism, HTN, GERD HPI Details Patient comes in today for her follow up visit Patient states that she feels okay She denies any headaches or dizziness Denies any chest pains, no inicreased shortness of breath No nausea/vomiting, no abdominal pain No change in bowel habits noted States that she is still having problems sleeping at night but her Zolpidem Rx helps somewhat - states that she's having problems sleeping since her a few months ago and she now mostly lives alone She was not able to get her follow up labs done prior to her appointment today [facility] Medical History Morbid obesity with BMI of 50.0-59.9, adult Insomnia Chronic kidney disease, stage III (moderate) Anemia Vitamin D deficiency Morbid obesity Post-menopausal Screening for hyperlipidemia Screening for colon cancer Screening for diabetes mellitus Hypertension Surgical History History of colonoscopy H/O basal cell carcinoma excision H/O gastric bypass History of right hip replacement History of left hip replacement History of tubal ligation History of section Family History Father CHF (congestive heart failure) Metastatic cancer to lung Mother Past heart attack Other Substance abuse Social History Housing: House Alcohol intake: current Alcohol intake frequency: a few times a week Alcohol type: wine Patient Tobacco Use Status: Former Tobacco user Tobacco use type: Cigarette Years Smoked: 22 e-Cigarette/Vaping Use: Never Used Second Hand Smoke Exposure: Yes Advance Directives Date on File: 07/20/22 service: No Current occupational status: retired 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 Current occupational exposures/hazards: No Cognitive needs: Yes (cane) Hearing needs: No Vision needs: Yes (glasses) Questionnaire Thrive Questionnaire Date Thrive assessed: 08/15/24 I am a: Patient What is your living situation today?: I have a steady place to live Within the past 12 months, did the food you bought not last and you didn't have the money to get more?: Never true Within the past 12 months, did you worry whether your food would run out before you got money to buy more?: Never true Do you have trouble paying for medicines?: No Do you have trouble getting transportation to medical appointments?: Yes Do you have trouble paying your heating and electricity bill?: No Do you have trouble taking care of your child, family member or friend?: No Do you have trouble with day-to-day activities such as bathing, preparing meals, shopping, managing finances, etc.?: No Are you currently unemployed and looking for a job?: No Are you interested in more education?: No Please select the resources that you would like help with: None Currently or been in a relationship where the following occur: No concerns reported THRIVE Score: 1 AUDIT C Alcohol Use Questionnaire (AUDIT-C) 1. How often do you have a drink containing alcohol?: 2-3 times a week 2. How many drinks containing alcohol do you have on a typical day when you are drinking?: 3 or 4 3. How often do you have six or more drinks on one occasion?: Never Total Score: 4 Score Reviewed/Action Taken: Yes NING-7 AMB Questionnaire NING-7 Date NING - 7 assessed: 08/15/24 Source: Developed by Drs. Brooks Dill, Meghan Arias, Liam Turcios and colleagues, with an educational pat from [employer]. Review of Systems Const Denies chills, Reports difficulty sleeping, Denies fatigue, Denies fever(s) and Denies headache(s) ENT Denies dysphagia, Denies dizziness, Denies otalgia, Denies headache(s), Denies neck pain, Denies odynophagia and Denies sore throat Card Denies chest pain, Denies palpitations and Denies dyspnea Resp Denies cough and Denies dyspnea GI Denies abdominal pain, Denies constipation, Denies dysphagia, Denies heartburn, Denies diarrhea, Denies nausea, Denies odynophagia and Denies vomiting Denies difficulty voiding, Denies nocturia, Denies dysuria and Denies urinary urgency Musc Denies back pain and Denies neck pain Skin/Breast Denies rash Neuro Denies dizziness and Denies headache(s) Endo Denies fatigue and Denies palpitations Physical exam (Primary Care) Vital Signs: Last Vital Signs Pulse 68 11/22/24 13:34 BP 122/68 11/22/24 13:34 Pulse Ox 94 11/22/24 13:34 Oxygen Delivery Method Room Air 11/22/24 13:34 Tobacco/Smoking Status: Tobacco use Status Tobacco use date assessed 11/22/24 11/22/24 13:40 Patient Tobacco Use Status Former Tobacco user 11/22/24 13:40 Tobacco use type Cigarette 11/22/24 13:40 e-Cigarette/Vaping Use Never Used 11/22/24 13:40 Thrive Assessment: Date of Thrive Assessment Date Thrive assessed 08/15/24 11/22/24 13:40 Currently or been in a relationship where the following occur: No concerns reported Const General: no acute distress and alert HENMT Ears: TM's normal bilaterally and EAC's normal Throat: Yes posterior oropharynx normal and Yes tonsils normal (no TP congestion) Neck Neck: Yes supple and No lymphadenopathy Thyroid: Thyroid normal Resp Auscultation: clear to auscultation bilaterally, no rales and no wheezes Cardio Rate: regular rate Rhythm: regular rhythm Heart sounds: no murmurs GI Palpation (GI): Soft to palpation and nontender Auscultation: normal bowel sounds General: Yes no CVA tenderness Back/Spine/Pelvis Back: no CVA tenderness Thoracic/Lumbar Spine: No lumbar spinal tenderness Skin Rashes: no rashes Extrem General: Yes no clubbing, cyanosis or edema Coding Level of Care Code Est Pt Level 4 (85296) Diagnoses Essential hypertension I10 Pure hypercholesterolemia E78.00 Hyperlipidemia type: pure hypercholesterolemia Acquired hypothyroidism E03.9 Hypothyroidism type: acquired Age-related osteoporosis without current pathological fracture M81.0 Osteoporosis type: age-related Presence of current pathological fracture: without current pathological fracture Vitamin D deficiency E55.9 Pulmonary embolism without acute cor pulmonale, unspecified chronicity, unspecified pulmonary embolism type I26.99 Pulmonary embolism type: unspecified Chronicity: unspecified Acute cor pulmonale presence: without acute cor pulmonale Iron deficiency anemia, unspecified iron deficiency anemia type D50.9 Anemia type: iron deficiency Iron deficiency anemia type: unspecified iron deficiency Atrophy of left kidney N26.1 Stage 3a chronic kidney disease N18.31 Chronic kidney disease stage 3 subtype: stage 3a (GFR 45-59) Insomnia, unspecified type G47.00 Insomnia type: unspecified Morbid obesity with BMI of 50.0-59.9, adult E66.01; Z68.43 Assessment & Plan Assessment & Plan (1) Essential hypertension: Code(s): I10 - Essential (primary) hypertension Category: Medical Plan: Reinforced low sodium diet - goal is systolic BP of at least 130 to 140 mm or less Continue Irbesartan 150 mg QD and Furosemide 80 mg QD (2) Hyperlipidemia: Code(s): E78.5 - Hyperlipidemia, unspecified Category: Medical Qualifiers: Hyperlipidemia type: pure hypercholesterolemia Qualified Code(s): E78.00 - Pure hypercholesterolemia, unspecified Plan: Patient was not able to get her previously ordered labs done prior to coming in for her appt today Reinforced low cholesterol diet Continue Simvastatin 80 mg QD Will have patient check her labs and fasting lipids in 3 months for follow up - will just have patient use her current orders (updated) for her next lab draw (3) Hypothyroidism: Code(s): E03.9 - Hypothyroidism, unspecified Category: Medical Qualifiers: Hypothyroidism type: acquired Qualified Code(s): E03.9 - Hypothyroidism, unspecified Plan: Continue Levothyroxine 125 mcg QD Will check patient's TFTs in 3 months for follow up (4) Osteoporosis: Code(s): M81.0 - Age-related osteoporosis without current pathological fracture Category: Medical Qualifiers: Osteoporosis type: age-related Presence of current pathological fracture: without current pathological fracture Qualified Code(s): M81.0 - Age- related osteoporosis without current pathological fracture Plan: Continue Prolia 60 mg SQ every 6 months Follow up with endocrinology as scheduled (5) Vitamin D deficiency: Code(s): E55.9 - Vitamin D deficiency, unspecified Category: Medical Plan: Continue Vitamin D3 1000 units QD (6) Pulmonary embolism: Code(s): I26.99 - Other pulmonary embolism without acute cor pulmonale Category: Medical Qualifiers: Pulmonary embolism type: unspecified Chronicity: unspecified Acute cor pulmonale presence: without acute cor pulmonale Qualified Code(s): I26.99 - Other pulmonary embolism without acute cor pulmonale Plan: Continue Coumadin 4 mg QD (7) Anemia: Code(s): D64.9 - Anemia, unspecified Category: Medical Qualifiers: Anemia type: iron deficiency Iron deficiency anemia type: unspecified iron deficiency Qualified Code(s): D50.9 - Iron deficiency anemia, unspecified Plan: Continue Ferrous Sulfate 325 mg QD Will recheck her CBC in 3 months for follow up (8) Atrophy of left kidney: Code(s): N26.1 - Atrophy of kidney (terminal) Category: Medical Plan: This is most likely due to staghorn calculus Follow up with nephrology as scheduled (9) Chronic kidney disease, stage III (moderate): Code(s): N18.30 - Chronic kidney disease, stage 3 unspecified Category: Medical Qualifiers: Chronic kidney disease stage 3 subtype: stage 3a (GFR 45-59) Qualified Code(s): N18.31 - Chronic kidney disease, stage 3a Plan: Follow up with nephrology as scheduled (10) Insomnia: Code(s): G47.00 - Insomnia, unspecified Category: Medical Qualifiers: Insomnia type: unspecified Qualified Code(s): G47.00 - Insomnia, unspecified Plan: Sleep hygiene reinforced Continue Zolpidem 5 mg Q HS PRN (11) Morbid obesity with BMI of 50.0-59.9, adult: Code(s): E66.01 - Morbid (severe) obesity due to excess calories; Z68.43 - Body mass index [BMI] 50.0-59.9, adult Category: Medical Plan: Reinforced diet; exercise and weight loss are unrealistic given patient's comorbidities and physical issues She again indicates that she is interested to trying one of the GLP-1 injections to help her lose weight but is again advised to get her labs done first before she comes back and we will discuss this at her next appt Plan Follow up in 3 months
== END 2024-11-22 14:22 | disposition home or self-care (01) ==
LOC: HO.HMCH 13:30
PROVIDERS: PCP Internal Medicine; Visit Provider Internal Medicine
DX: I12.9 Hypertensive chronic kidney disease with stage 1 through stage 4 chronic kidney disease, or unspecified chronic kidney disease (principal); I26.99 Other pulmonary embolism without acute cor pulmonale; N18.31 Chronic kidney disease, stage 3a; E66.01 Morbid (severe) obesity due to excess calories; Z68.43 Body mass index [BMI] 50.0-59.9, adult; E78.00 Pure hypercholesterolemia, unspecified; E03.9 Hypothyroidism, unspecified; M81.0 Age-related osteoporosis without current pathological fracture; E55.9 Vitamin D deficiency, unspecified; D50.9 Iron deficiency anemia, unspecified; N26.1 Atrophy of kidney (terminal); G47.00 Insomnia, unspecified

== ENCOUNTER → 2024-11-22 13:29 | Outpatient (BNVA) | payer MEDICARE, OTHER, SELFPAY | PROVIDERS: PCP Internal Medicine; Visit Provider Internal Medicine | DX: I10 Essential (primary) hypertension (principal); E03.9 Hypothyroidism, unspecified; K21.9 Gastro-esophageal reflux disease without esophagitis; E78.00 Pure hypercholesterolemia, unspecified; M81.0 Age-related osteoporosis without current pathological fracture; E55.9 Vitamin D deficiency, unspecified; I26.99 Other pulmonary embolism without acute cor pulmonale; D50.9 Iron deficiency anemia, unspecified; N26.1 Atrophy of kidney (terminal); N18.31 Chronic kidney disease, stage 3a; G47.00 Insomnia, unspecified; E66.01 Morbid (severe) obesity due to excess calories; Z68.43 Body mass index [BMI] 50.0-59.9, adult | CPT/HCPCS: 99212 ==